=== PATIENT | male | born 1960 | race African-American/Black ===

== ENCOUNTER 2020-06-27 13:24 | Inpatient (IN) | payer MEDICARE, MEDICAID ==
[2020-06-27 14:04] LABS: #Lymphocytes 0.8 thou/uL (1.20-3.40); #Monocytes 0.4 thou/uL (0.11-0.59); #Neutrophils 10.8 thou/uL (1.40-6.50); %Basophils 0.2 % (0.0-1.0); %Eosinophils 0.1 % (0.0-10.0); %Lymphocytes 6.6 % (21.0-51.0); %Monocytes 3.4 % (0.0-10.0); %Neutrophils 89.8 % (42.0-75.0); Mean Corpuscular Hemoglobin 28.6 pg (27.0-31.0); Mean Corpuscular Volume 86.7 fL (78.0-98.0); Mean Platelet Volume 7.4 fL (7.4-10.4); Platelet Count 393 thou/uL (130-400); RBC Distribution Width 12.6 % (11.5-14.5); Red Blood Cell (RBC) Count 5.95 mill/uL (4.70-6.10); White Blood Cell (WBC) Count 12.1 thou/uL (4.8-10.8)
--- NOTE | 2020-06-27 14:22 | RAD ---
PORTABLE CHEST ONE VIEW: 06/27/20 at 2:07 p.m. HISTORY: Shortness of breath. COMPARISON: 03/21/17. FINDINGS/IMPRESSION: The heat size is normal. There is haziness in the lung lopez bilaterally. No lobar consolidation, pn eumothoraces or pleural effusions are seen. Possibility of a viral pneumonia cannot be excluded. POS: OFF
[2020-06-27 14:34] LABS: ALT (SGPT) 558 U/L (8-55); AST (SGOT) 879 U/L (5-34); Albumin 3.3 g/dL (3.5-5.0); Alkaline Phosphatase 166 U/L (40-110); Anion Gap 29 mmol/L (10-20); BUN (Urea Nitrogen) 112 mg/dL (8.4-25.7); Bilirubin, Total 1.2 mg/dL (0.2-1.2); Calc. Creatinine Clearance 0 mL/min (70-130); Calcium 8.2 mg/dL (7.8-10.44); Carbon Dioxide 18 mmol/L (22-29); Chloride 88 mmol/L (98-107); Globulin 4.1 g/dL (2.4-3.5); Glucose 104 mg/dL (70-105); Potassium 5.5 mmol/L (3.5-5.1); Protein, Total 7.4 g/dL (6.0-8.3); Sodium 129 mmol/L (136-145)
[2020-06-27] MEDS ORDERED: Calcium Chloride 1 GM/10 ML Abboject SYRINGE ONE (15:07)
[2020-06-27] MEDS ORDERED: Sodium Bicarbonate 150 MEQ in Dextrose 5% in Water 1,000 ML IV SCH (15:15)
--- NOTE | 2020-06-27 16:31 | PDOC.HHP ---
Hospitalist HPI Generalized weakness History of Present Illness: Mr. Kemp is a 59-year-old male with past medical history of type 2 diabetes mellitus, hypertension, autism who presents to the emergency room for weakness. Patient was brought in by his brother who noted that over the past few days his brother has been tired and lethargic which is very abnormal for him. EMS reported shortness of breath, however patient denies this. Patient denies fever, chills. Denies shortness of breath, chest pain, abdominal pain. Reports that he was feeling weak and tired the past few days, but feels better now. Also reports that his legs felt weak and that he was unable to get up out of bed. In emergency room initial vital signs 90/66, 83, 23, 92% on room air. EKG showed normal sinus rhythm with no ischemic changes. Initial troponin 0 0.026, BNP less than 10. Lactic acid 3.6, WBC 12.1. H/H 17.0/41.6, platelets 393. BUNs/CR 11.2/9.47, sodium 129, potassium 5.5, bicarb 18. Anion gap 29. Patient has no history of known kidney disease. He reports he has been urinating normally, although brother at bedside questions patient's reliability on review of systems. Allergies/Adverse Reactions: Allergy/AdvReac Type Severity Reaction Status Date / Time No Known Allergies Allergy Unverified 06/27/20 15:09 Home Medications: Medication Instructions Recorded Confirmed Type Amlodipine [Norvasc] 10 mg PO DAILY 06/29/20 06/29/20 History Colchicine [Colcrys] 0.6 mg PO DAILY 06/29/20 06/29/20 History Metoprolol Jasso/Hydrochlorothiaz 50 mg PO DAILY 06/29/20 06/29/20 History [Dutoprol 50-12.5 mg Tablet] Rosuvastatin Calcium 40 mg PO DAILY 06/29/20 06/29/20 History metFORMIN [Glucophage] 1,000 mg PO DAILY 06/29/20 06/29/20 History Past History: PMHx: Type 2 diabetes mellitus, hypertension, autism PSHx: No surgical history FHx: No pertinent family history Social: Patient autistic, active in community, lives with and home health aides. No smoking or drug use. Patient does endorse occasional alcohol use. Hospitalist HPI ROS ROS unobtainable: due to mental status Constitutional: reports: weakness, malaise. denies: fever, chills, sweats Eyes: denies: vision change ENT: denies: nose congestion, mouth pain, throat pain Respiratory: denies: cough, dry, shortness of breath, hemoptysis, SOB with excertion, pleuritic pain, sputum, wheezing, other Cardiovascular: denies: chest pain, palpitations, orthopnea, paroxysmal noc. dyspnea, edema, light headedness, other Gastrointestinal: denies: nausea, vomiting, abdominal pain, diarrhea, constipation, melena, hematochezia, other Genitourinary: denies: dysuria, frequency, incontinence, hematuria, retention, other Musculoskeletal: denies: neck pain, shoulder pain, arm pain, back pain, hand pain, leg pain, foot pain, other Skin: denies: rash, lesions, elham, bruising, other Neurological: denies: weakness, numbness, incoordination, change in speech, confusion, seizures, other Hospitalist Exam General Appearance: NAD, awake alert Eye: PERRL, anicteric sclera ENT: normocephalic atraumatic, no oropharyngeal lesions, dry oral mucosa Neck: supple, symmetric, no JVD, no thyromegaly, no lymphadenopathy, no carotid bruit Heart: RRR, no murmur, no gallops, no rubs, normal peripheral pulses Respiratory: CTAB, no wheezes, no rales, no ronchi, normal chest expansion, no tachypnea, normal percussion Gastrointestinal: soft, non-tender, non-distended, normal bowel sounds, no palp able masses, no hepatomegaly, no splenomegaly, no bruit Extremities: no cyanosis, no clubbing, no edema Skin: normal turgor, no lesions, no rashes Neurological: cranial nerve grossly intact, normal sensation to touch, no weak ness, no focal deficits, no new deficit Musculoskeletal: normal tone, normal strength, no muscle wasting Psychiatric: normal affect, normal behavior, A&O x 3 Hospitalist Results Result Diagrams: 07/04/20 05:13 07/06/20 05:45 Lab results: Laboratory Last Values WBC 12.1 thou/uL (4.8-10.8) H 06/27/20 13:56 RBC 5.95 mill/uL (4.70-6.10) 06/27/20 13:56 Hgb 17.0 g/dL (14.0-18.0) 06/27/20 13:56 Hct 51.6 % (42.0-52.0) 06/27/20 13:56 MCV 86.7 fL (78.0-98.0) 06/27/20 13:56 MCH 28.6 pg (27.0-31.0) 06/27/20 13:56 MCHC 33.0 g/dL (32.0-36.0) 06/27/20 13:56 RDW 12.6 % (11.5-14.5) 06/27/20 13:56 Plt Count 393 thou/uL (130-400) 06/27/20 13:56 MPV 7.4 fL (7.4-10.4) 06/27/20 13:56 Neutrophils % 89.8 % (42.0-75.0) H 06/27/20 13:56 Lymphocytes % 6.6 % (21.0-51.0) L 06/27/20 13:56 Monocytes % 3.4 % (0.0-10.0) 06/27/20 13:56 Eosinophils % 0.1 % (0.0-10.0) 06/27/20 13:56 Basophils % 0.2 % (0.0-1.0) 06/27/20 13:56 Neutrophils # 10.8 thou/uL (1.40-6.50) H 06/27/20 13:56 Lymphocytes # 0.8 thou/uL (1.20-3.40) L 06/27/20 13:56 Monocytes # 0.4 thou/uL (0.11-0.59) 06/27/20 13:56 Eosinophils # 0.0 thou/uL (0.0-0.7) 06/27/20 13:56 Basophils # 0.0 thou/uL (0.0-0.2) 06/27/20 13:56 Sodium 129 mmol/L (136-145) L 06/27/20 13:56 Potassium 5.5 mmol/L (3.5-5.1) H 06/27/20 13:56 Chloride 88 mmol/L (98-107) L 06/27/20 13:56 Carbon Dioxide 18 mmol/L (22-29) L 06/27/20 13:56 Anion Gap 29 mmol/L (10-20) H 06/27/20 13:56 BUN 112 mg/dL (8.4-25.7) H 06/27/20 13:56 Creatinine 9.47 mg/dL (0.7-1.3) H 06/27/20 13:56 Estimated GFR (MDRD) 7 06/27/20 13:56 Glucose 104 mg/dL (70-105) 06/27/20 13:56 Lactic Acid 3.6 mmol/L (0.5-2.2) H 06/27/20 14:27 Calcium 8.2 mg/dL (7.8-10.44) 06/27/20 13:56 Total Bilirubin 1.2 mg/dL (0.2-1.2) 06/27/20 13:56 AST 879 U/L (5-34) H 06/27/20 13:56 ALT 558 U/L (8-55) H 06/27/20 13:56 Alkaline Phosphatase 166 U/L (40-110) H 06/27/20 13:56 Creatine Kinase 284 U/L (30-200) H 06/27/20 13:56 Troponin I 0.026 ng/mL (< 0.028) 06/27/20 13:56 B-Natriuretic Peptide Less than 10.0 pg/mL (0-100) 06/27/20 13:56 Serum Total Protein 7.4 g/dL (6.0-8.3) 06/27/20 13:56 Albumin 3.3 g/dL (3.5-5.0) L 06/27/20 13:56 Globulin 4.1 g/dL (2.4-3.5) H 06/27/20 13:56 Albumin/Globulin Ratio 0.8 g/dL (1.2-2.2) L 06/27/20 13:56 Hospitalist H&P A/P Plan: Generalized weakness 59-year-old male with history of type 2 diabetes mellitus, hypertension, autism presents with generalized weakness brought in by brother. Found to have acute renal failure, and also meeting SIRS criteria. Chest x-ray showed haziness in the bilateral lung lpoez. No known COVID-19 contacts. Patient denies cough, fever, shortness of breath. Covid pending. Patient appears very dry on exam, question of patient has been getting adequate fluids over the past few days. Suspect weakness is secondary to severe dehydration. Plan Covid pending IV fluids Treatment as above Sepsis without septic shock Patient meeting SIRS criteria with elevated white blood cell count of 12.1, lactic acid 3.6, tachypnea and hypotension. Chest x-ray with question of faint haziness in bilateral lung lopez. Covid pending. Patient started on Rocephin and azithromycin in emergency room. We will continue broad-spectrum antibiotics and de-escalate as needed. Plan Vanc, cefepime Follow blood cultures, urine cultures trend lactic acid, WBC, fever curve IV fluids Acute renal failure Patient presents in acute renal failure with BUN/CR 112/9.47. Sodium 139, potassium 5.5. Anion gap 29. Unable to obtain urine sample in emergency room. Patient has no history of chronic kidney disease and prior creatinine from 06.23. Will obtain UA with microscopic and culture. Will obtain renal ultrasound to rule out obstructive pathology. Nephrology consulted, recommendations appreciated. Plan IV fluids UA with microscopic and culture Renal ultrasound Nephrology consulted recommendations appreciated Anion gap metabolic acidosis Pat in metabolic acidosis with elevated anion gap of 29. May be due to elevated lactic acid, however cannot rule out toxic ingestion. Given patient's Autism and alcohol dependence, question methanol, ethyelene glycol poisoning vs toxic alcohol intoxication especially in light of patient's new onset acute renal failure and significantly elevated liver enzymes. Plan -IVF -Ethylene glycol level STAT -Closely monitor anion gap Hyperkalemia Hyperkalemia to 5.5. Patient received calcium and bicarbonate drip in emergency room. Will repeat to ensure sample was not hemolyzed, and treat as needed. Plan Stat BMP -Calcium gluconate -Monitor and treat if indicated Telemetry monitoring Hyponatremia Patient with Na of 129 on admission. Likely hypovolemic hyponatremia since patient appears dry on exam. Will obtain serum osm, urine osm, and urine electrolytes. Nephrology consulted for acute renal failure, recommendations appreciated. Plan -IVF -q6h Na checks -Uosm, Na, K -Serum osm Transaminitis Patient with transaminitis AST/ALT 879/558, alk phos 166. T bili 1.2. No abdominal pain on exam. Will obtain right upper quadrant ultrasound, check urine drug screen, hepatitis panel. Patient does endorse history of alcohol use, but not daily. Plan Right upper quadrant ultrasound Urine drug screen Hepatitis panel, coags Trend LFTs Alcohol use We will place patient on ASE protocol. Denies daily alcohol use, but due to patient's mental status unable to ascertain amount. Will check thiamine, vitamin B12, magnesium and folate. DVT prophylaxis-SCDs FULL CODE Case discussed with attending physician, Dr. Rios.
[2020-06-27] MEDS ORDERED: Sodium Bicarbonate 50 MEQ in Sodium Chloride 0.45% 1,000 ML IV SCH (16:45)
[2020-06-27] MEDS ORDERED: cefTRIAXone\\ROCEPHIN 1 GM VIAL ONE (17:19)
[2020-06-27 17:40] LABS: INR-International Normal Ratio 1.1; Prothrombin Time 14.6 sec (12.0-14.7)
[2020-06-27 17:41] LABS: Lactic Acid 3.4 mmol/L (0.5-2.2)
[2020-06-27] MEDS ORDERED: Azithromycin 500 MG VIAL ONE (17:47)
[2020-06-27 18:11] LABS: Thyroid Stimulating Hormone 2.2131 uIU/mL (0.35-4.94)
[2020-06-27 18:12] LABS: HBSAg Index 0.14 S/CO (0-0.99); Hep B Surf Ag Non-Reactive S/CO (NonReactive); Hep C IgG Ab Non-Reactive (NonReactive)
[2020-06-27 18:14] LABS: Hep A IgM AB Non-Reactive (NonReactive); Hep A IgM S/CO 0.37 S/CO (0-0.79)
[2020-06-27 18:15] LABS: HBCM Index 0.06 S/CO (0-0.79); Hepatitis B Core IgM Abs Non-Reactive (NonReactive)
--- NOTE | 2020-06-27 18:17 | ULT ---
RIGHT UPPER QUADRANT ULTRASOUND: 06/27/20 INDICATIONS: Abdominal pain. Elevated liver function test. The gallbladder is contracted and not evaluated. Patient is nonfasting and ate prior to the exam. Thi s is therefore a nondiagnostic study. Liver appears unremarkable. the common bile duct is normal caliber. The right kidney is unremarkable. the pancreas is mostly obscured. IMPRESSION: Nondiagnostic gallbladder exam. If there is concern of gallbladder disease, recommend elective gallbl adder ultrasound with overnight fast. POS: AGW
--- NOTE | 2020-06-27 18:21 | ULT ---
RENAL ULTRASOUND: 06/27/20 INDICATIONS: Acute kidney insufficiency. Right kidney measures 10 cm in length. The left kidney measures 11 cm in length. Both kidneys appear unremarkable. Cortical thickness and cortical echogenicity appears normal bilater ally. The bladder appears to be contracted and is not evaluated. IMPRESSION: Unremarkable renal ultrasound. POS: AGW
[2020-06-27 18:39] LABS: Acetaminophen Less than 6.0 mcg/mL (10.0-30.0); Alcohol Less than 10 mg/dL (Less than 10); Salicylate Less than 8.0 mg/dL (15.0-30.0)
[2020-06-27] MEDS ORDERED: Dextrose 50% Abboject 50 ML SYRINGE SLOW IVP PRN (18:39)
[2020-06-27] MEDS ORDERED: Dextrose 5% in Water 1,000 ML IV PRN (18:39)
[2020-06-27 18:47] LABS: HIV (1/2) Antibody/Antigen Non-Reactive (NonReactive)
[2020-06-27 19:30] LABS: Bacteria/HPF 3+ HPF (None Seen); Bilirubin Negative (Negative); Blood, Urine 1+ (Negative); Clarity Extra Turbid (Clear); Glucose, Urine (Dipstick) 30 mg/dL (Negative); Ketone, Urine Negative (Negative); Leukocyte 75 Leu/uL (Negative); Nitrite Negative (Negative); Protein, Urine (Dipstick) 100 mg/dL (Neg-Trace); RBC/HPF 0-3 HPF (0-3); Specific Gravity, Urine 1.023 (1.002-1.036); Squamous Epithelial 0-3 HPF (0-3); Transitional Epithelial 0-3 HPF (None Seen); WBC/HPF 21-50 HPF (0-3)
[2020-06-27 19:35] LABS: Amphetamine Not Detected (NotDetected); Barbiturates Screen Not Detected (NotDetected); Benzodiazepine Screen Not Detected (NotDetected); Cocaine Metabolite Screen Not Detected (NotDetected); Medtox Control Line Valid? VALID (VALID); Medtox Reader # READER 1; Methadone Not Detected (NotDetected); Methamphetamine Not Detected (NotDetected); Opiate Screen Not Detected (NotDetected); Oxycodone Screen Not Detected (NotDetected); Phencyclidine (PCP) Not Detected (NotDetected); THC/Cannabinoid Screen Not Detected (NotDetected); Tricyclic Screen Not Detected (NotDetected)
--- NOTE | 2020-06-27 20:17 | CON ---
DATE OF CONSULTATION: 06/27/2020 SERVICE: Nephrology. REASON FOR CONSULTATION: Acute renal failure. REQUESTING PROVIDER: Valentín Aranda MD HISTORY OF PRESENT ILLNESS: History is limited as the patient had some speech disability. Most of the history is from review of medical record and talking with the brother. The patient with hypertension and borderline diabetes, was brought in by brother earlier today due to generalized weakness. Brother reported that for several days now, the patient has not been as active as he normally is and has been lying down mostly in the bed with markedly decreased oral intake, preferring only to take soups. There was no associated fever or shortness of breath or vomiting or diarrhea. The patient also denied chest pain or abdominal pain. There is also no history of sick contact. On presentation to the hospital, the patient was noticed to be hypotensive and tachypneic, hence was started on oxygen supplementation and treated with normal saline bolus with improvement, and oxygen supplementation was subsequently discontinued. Further evaluation revealed creatinine of 9.4, which is markedly elevated compared to 1.24 on May 28, 2020. The patient takes some medication for blood pressure, but he was unable to tell me whether he is on lisinopril or RAAS trev. He also denied use of NSAIDs. There is no history of kidney stones. The patient also received 1 L of sodium bicarbonate in the ER. However, during my evaluation, blood pressure was . PAST MEDICAL HISTORY: 1. Hypertension. 2. Borderline diabetes. 3. Autism. PAST SURGICAL HISTORY: None. FAMILY HISTORY: Significant for hypertension and diabetes in mother, who is late now. SOCIAL HISTORY: The patient is autistic, but he is very active in the community. Lives with family and had home health services. There is no history of smoking or drug use. Brother, however, reported daily alcohol use about 6 to 12 cans daily with last drink about 4 days ago. ALLERGIES: NO KNOWN DRUG ALLERGIES REPORTED. HOME MEDICATIONS: Unknown at this point. REVIEW OF SYSTEMS: A 12-point review of system performed was negative other than pertinent positives and negatives included in the history of present illness. PHYSICAL EXAMINATION: VITAL SIGNS: Initial vitals on presentation are as follows; pulse 83, respiratory rate 28, temperature 98, and blood pressure 82/49. SpO2 of 94 on 4 L nasal cannula. Vitals during my visit are as follows; blood pressure 88/70, pulse 83, and respiratory rate 20. GENERAL: Middle-age male, in no obvious distress. Fatigued and severely dry clinically. Afebrile and anicteric. HEENT: Normocephalic, atraumatic. Oral mucosa is very dry with cracked lips. NECK: Supple with no JVD. CARDIOVASCULAR: Regular rhythm and rate with normal heart sounds. RESPIRATORY: Fair air entry bilaterally with some transmitted breath sounds. There is no obvious rhonchi or use of accessory muscles. GI: Full, soft, nontender, nondistended with normal bowel sounds. EXTREMITIES: Grossly normal looking, but dry. No erythema or edema appreciated. SKIN: Very dry. No rash was appreciated. 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 Oriented to person and place at least. The patient was unable to tell me why he is in the hospital. DIAGNOSTIC DATA: CBC showed WBC count of 12.1, hemoglobin of 17.0, MCV of 86.7, platelet of 393. Coagulation panel is unremarkable with PT of 14.6, INR of 1.1, PTT of 28. Chemistry showed sodium 129, potassium 5.5, chloride 88, CO2 of 18, BUN 112, creatinine 9.47, glucose 104, calcium 8.2, total bilirubin 1.2, AST 879, ALT 558, alkaline phosphatase 168, total protein 7.4, albumin 3.3. Initial cardiac markers showed CK 284, troponin 0.026, and BNP less than 10. LDH is 1900. Lactic acid is 3.6. Prolactin is 24.01. Urinalysis has not been performed. Chest x-ray showed a normal heart size with some haziness in the lung lopez bilaterally. No lobar consolidation, pneumothorax, or pleural effusion was noted. ASSESSMENT: 1. Acute renal failure: Due to hemodynamic factors related to severe dehydration. Some contribution from infective process cannot be ruled out. 2. Severe dehydration/hypovolemic shock. 3. Shock: Due to hypovolemia with possible contribution from sepsis. 4. Acute renal failure. 5. Abnormal transaminases. 6. Metabolic acidosis. PLAN: 1. We will give 2 L of normal saline bolus followed by half-normal saline plus sodium bicarbonate to run at 125 mL/h. 2. We will also get urine electrolytes as well as urinalysis. 3. We will also get renal ultrasound to rule out obstructive uropathy. 4. I avoid nephrotoxic agents. 5. We will also get urine drug screen. We will also recommend further evaluation with COVID PCR to rule out COVID infection. We will also get ammonia level and lipase. The patient reported a history of chronic alcohol use. Further treatment to follow depending on hospital course. Job ID: [id number]
[2020-06-27] MEDS: Sodium Chloride 0.9% 1,000 ML IV SCH (21:14)
[2020-06-27] MEDS ORDERED: Sodium Chloride 0.9% 1,000 ML IV SCH (22:00)
[2020-06-27 22:23] LABS: Anion Gap 23 mmol/L (10-20); BUN (Urea Nitrogen) 101 mg/dL (8.4-25.7); Calc. Creatinine Clearance 12 mL/min (70-130); Calcium 8.2 mg/dL (7.8-10.44); Carbon Dioxide 17 mmol/L (22-29); Chloride 95 mmol/L (98-107); Glucose 87 mg/dL (70-105); Magnesium 2.3 mg/dL (1.6-2.6); Potassium 4.6 mmol/L (3.5-5.1); Sodium 130 mmol/L (136-145)
[2020-06-27 22:48] LABS: SARS-CoV-2 NAA Rapid Test DETECTED (NotDetected)
[2020-06-27 22:51] LABS: Lactic Acid 2.1 mmol/L (0.5-2.2)
[2020-06-27] MEDS ORDERED: Cefepime 1 GM in Sodium Chloride 0.9% 100 ML IVPB SCH (23:00)
[2020-06-27] MEDS ORDERED: Albuterol 200 PUFF (6.7GM INHALER) INH PRN (23:06)
[2020-06-27 23:20] LABS: Legionella Urinary Ag Negative (Negative)
[2020-06-27 23:30] LABS: Creatinine, Urine 201.49 mg/dL (63-166); Sodium, Urine Less than 20 mmol/L (Not Available); Urea Nitrogen, Random Urine 260 mg/dl
[2020-06-27 23:43] LABS: Protein, Urine Random Quant 245 mg/dL (1-14)
[2020-06-27] MEDS ORDERED: VANCOMYCIN 2 GRAM/400 ML BAG 2 GM in Premix Bag 1 BAG IVPB SCH (23:59)
[2020-06-28 04:59] LABS: #Lymphocytes 0.6 thou/uL (1.20-3.40); #Monocytes 0.4 thou/uL (0.11-0.59); #Neutrophils 10.8 thou/uL (1.40-6.50); %Basophils 0.1 % (0.0-1.0); %Eosinophils 0.2 % (0.0-10.0); %Lymphocytes 5.4 % (21.0-51.0); %Monocytes 3.6 % (0.0-10.0); %Neutrophils 90.7 % (42.0-75.0); Hemoglobin 15.8 g/dL (14.0-18.0); Mean Corpuscular HGB CONC 33.4 g/dL (32.0-36.0); Mean Corpuscular Hemoglobin 29.1 pg (27.0-31.0); Mean Corpuscular Volume 87.2 fL (78.0-98.0); Mean Platelet Volume 7.1 fL (7.4-10.4); Platelet Count 326 thou/uL (130-400); RBC Distribution Width 12.6 % (11.5-14.5); Red Blood Cell (RBC) Count 5.43 mill/uL (4.70-6.10); White Blood Cell (WBC) Count 11.9 thou/uL (4.8-10.8)
[2020-06-28 05:40] LABS: Anion Gap 26 mmol/L (10-20); BUN (Urea Nitrogen) 121 mg/dL (8.4-25.7); Calc. Creatinine Clearance 12 mL/min (70-130); Calcium 7.9 mg/dL (7.8-10.44); Carbon Dioxide 14 mmol/L (22-29); Chloride 96 mmol/L (98-107); Glucose 82 mg/dL (70-105); Potassium 4.5 mmol/L (3.5-5.1); Sodium 131 mmol/L (136-145)
[2020-06-28 05:42] LABS: ALT (SGPT) 390 U/L (8-55); AST (SGOT) 547 U/L (5-34); Albumin 2.6 g/dL (3.5-5.0); Alkaline Phosphatase 139 U/L (40-110); Bilirubin, Direct 0.7 mg/dL (0.1-0.3); Bilirubin, Total 0.8 mg/dL (0.2-1.2); CRP (Inflammatory) 16.83 mg/dL (= or < 0.5); Magnesium 2.3 mg/dL (1.6-2.6); Protein, Total 6.1 g/dL (6.0-8.3)
[2020-06-28 05:47] LABS: Lactic Acid 2.4 mmol/L (0.5-2.2)
--- NOTE | 2020-06-28 07:39 | CT ---
CT ABDOMEN AND PELVIS WITHOUT IV CONTRAST: INDICATION: Abdominal pain. Elevated liver function tests. FINDINGS: Images through the lung bases reveal numerous patchy areas of ground-glass opacity in both visualized lung bases. The findings suggest COVID pneumonia. The liver, spleen, and pancreas appear unremarkable given the limitations of an unenhanced study. St omach unremarkable. Adrenal glands and kidneys unremarkable. Motion artifact degrades the exam. Small and large bowel loops unremarkable. Appendix appears normal. Colon unremarkable. Aorta stacy l caliber. No adenopathy, mass, or free fluid. Images through pelvis unremarkable. Osseous structures unremarkable with degenerative changes in the spine. IMPRESSION: 1. Images through the lung bases show bilateral patchy ground-glass infiltrates consistent with COVI D pneumonia. 2. No acute intraabdominal process identified. POS: AGW
[2020-06-28] MEDS: Magnesium Oxide 400 MG TAB PO SCH (09:08)
[2020-06-28] MEDS: Thiamine 100 MG TAB PO SCH (09:08)
[2020-06-28] MEDS: Multivitamin W/ Minerals 1 TAB PO SCH (09:08)
[2020-06-28] MEDS: Ascorbic Acid 500 mg Chewable Tablet PO SCH (09:08)
[2020-06-28] MEDS: Zinc Sulfate 220 MG CAP PO SCH (09:08)
[2020-06-28] MEDS: Folic Acid 1 MG TAB PO SCH (09:08)
[2020-06-28 09:54] LABS: Sodium 131 mmol/L (136-145)
[2020-06-28] MEDS: Sodium Bicarbonate 75 MEQ in Sodium Chloride 0.45% 1,000 ML IV SCH (10:23)
[2020-06-28] MEDS ORDERED: Sodium Chloride 0.9% 500 ML IV SCH (10:30)
--- NOTE | 2020-06-28 10:32 | PDOC.HOSPP ---
- Subjective Encounter Date: 06/28/20 Subjective: Patient says he feels "great". Brother is in the room with him. He confirms the patient was not eating or drinking much prior to admission. Nurse reports his sats drop to the 80's with minimal exertion (sitting up on the side of the bed). She also reports no significant UOP. Bladder scan with no residual. - Objective Vital Signs & Weight: Vital Signs (12 hours) Temp Pulse Resp BP Pulse Ox 06/28/20 08:10 99.2 F 104 H 20 145/73 H 95 06/28/20 03:15 98.5 F 85 35 H 131/65 90 L 06/28/20 00:00 98.7 F 91 22 H 124/65 93 L Weight Weight 216 lb Result Diagrams: 06/28/20 04:29 06/28/20 09:18 Additional Labs: Accuchecks 06/28/20 06/28/20 06/27/20 10:22 05:39 20:21 POC Glucose 91 85 102 H Hospitalist ROS - Medication Medications: Active Medications Generic Name Dose Route Start Last Admin Trade Name Lewisq PRN Reason Stop Dose Admin Ascorbic Acid 1,000 mg 06/28/20 09:00 06/28/20 09:08 Ascorbic Acid 500 Mg Chewable Tablet PO 1,000 mg DAILY WILLIAMS Administration Folic Acid 1 mg 06/28/20 09:00 06/28/20 09:08 Folic Acid 1 Mg Tab PO 1 mg DAILY WILLIAMS Administration Sodium Bicarbonate 75 meq/ 1,075 mls @ 100 mls/hr 06/28/20 08:09 06/28/20 10:23 Sodium Chloride IV 1,075 mls INF WILLIAMS Administration Iron/Minerals/Multivitamins 1 tab 06/28/20 09:00 06/28/20 09:08 Multivitamin W/ Minerals 1 Tab PO 1 tab DAILY WILLIAMS Administration Magnesium Oxide 400 mg 06/28/20 09:00 06/28/20 09:08 Magnesium Oxide 400 Mg Tab PO 400 mg DAILY WILLIAMS Administration Thiamine HCl 100 mg 06/28/20 09:00 06/28/20 09:08 Thiamine 100 Mg Tab PO 100 mg DAILY WILLIAMS Administration Zinc Sulfate 220 mg 06/28/20 09:00 06/28/20 09:08 Zinc Sulfate 220 Mg Cap PO 220 mg DAILY WILLIAMS Administration Hospitalist Exam Vitals: Vital Signs (12 hours) Temp Pulse Resp BP Pulse Ox 06/28/20 08:10 99.2 F 104 H 20 145/73 H 95 06/28/20 03:15 98.5 F 85 35 H 131/65 90 L 06/28/20 00:00 98.7 F 91 22 H 124/65 93 L Weight Weight 216 lb General Appearance: NAD, awake alert General - other findings: Slightly lethargic appearing. Heart: RRR, no murmur, no gallops, no rubs, normal peripheral pulses Respiratory: no wheezes, no ronchi, rales (bibasilar) Gastrointestinal: soft, non-tender, non-distended, normal bowel sounds, no palpable masses, no hepatomegaly, no splenomegaly, no bruit Extremities: no cyanosis, no clubbing, no edema Musculoskeletal: generalized weakness Psychiatric: normal affect, normal behavior, lethargic Hosp A/P (1) Acute respiratory failure with hypoxia Code(s): J96.01 - ACUTE RESPIRATORY FAILURE WITH HYPOXIA Status: Acute (2) Pneumonia due to COVID-19 virus Code(s): U07.1 - COVID-19; J12.82 - PNEUMONIA DUE TO CORONAVIRUS DISEASE 2019 Status: Acute (3) Dehydration Code(s): E86.0 - DEHYDRATION Status: Acute (4) KASSIE (acute kidney injury) Code(s): N17.9 - ACUTE KIDNEY FAILURE, UNSPECIFIED Status: Acute (5) Transaminitis Code(s): R74.01 - ELEVATION OF LEVELS OF LIVER TRANSAMINASE LEVELS Status: Acute (6) Autism Code(s): F84.0 - AUTISTIC DISORDER Status: Acute (7) Metabolic acidosis Code(s): E87.2 - ACIDOSIS Status: Acute - Plan Acute hypoxia: Secondary to Covid. Not currently requiring oxygen at rest. On the verge of needing it as sats do drop with minimal exertion. Covid 19 Pneumonia: Not requiring oxygen now. No steroids yet. Not a candidate for remdesivir due to renal failure. Suspect this will get worse as he is rehydrated. Sepsis without septic shock Patient meeting SIRS criteria with elevated white blood cell count of 12.1, lactic acid 3.6, tachypnea and hypotension. Chest x-ray with question of faint haziness in bilateral lung lopez. Covid pending. Patient started on Rocephin and azithromycin in emergency room. We will continue broad-spectrum antibiotics and de-escalate as needed. Plan - Cont Vanc and cefepime in light of the substantially elevated procalcitonin. Follow blood cultures, urine cultures IV fluids Acute on chronic renal failure: Secondary to shock. Combination of hypovolemia and sepsis. Patient presents in acute renal failure with BUN/CR 112/9.47. Sodium 139, potassium 5.5. Anion gap 29. Patient has no history of chronic kidney disease and prior creatinine from 06.23. Will obtain UA with microscopic and culture. Will obtain renal ultrasound to rule out obstructive pathology. Nephrology consulted, recommendations appreciated. Plan IV fluids UA with microscopic and culture Renal ultrasound nml. No obstruction. -CT abdomen nml. Nephrology consulted recommendations appreciated -NS bolus 500 cc x 1 given the oliguria. Anion gap metabolic acidosis: Pat in metabolic acidosis with elevated anion gap of 29. Likely due to starvat ion ketosis. Plan -IVF -Ethylene glycol level STAT -Closely monitor anion gap - Hydrat - Nutrition. Hyperkalemia Hyperkalemia to 5.5. Plan -Calcium gluconate Telemetry monitoring -Resolved 06/28. Hyponatremia: Patient with Na of 129 on admission. Likely hypovolemic hyponatremia since patient appears dry on exam. Will obtain serum osm, urine osm, and urine electrolytes. Nephrology consulted for acute renal failure, recommendations appreciated. Plan -IVF -q6h Na checks -Uosm, Na, K -Serum osm Transaminitis Patient with transaminitis AST/ALT 879/558, alk phos 166. T bili 1.2. No abdominal pain on exam. US and CT abdomen nml. Likely related to shock liver. Plan Trend LFTs Alcohol use: We will place patient on ASE protocol. Denies daily alcohol use, but due to patient's mental status unable to ascertain amount. Will check thiamine, vitamin B12, magnesium and folate. DVT prophylaxis-SCDs FULL CODE Dispo: Discussed the situation with the patient's brother who is at the bedside. At his request, also spoke with the patient's nephew, Marco Antonio at [phone]. Concerned the covid situation will get worse. So far, no significant improvement in renal function.
[2020-06-28] MEDS ORDERED: Acetaminophen 500 MG TAB PO PRN (12:10)
--- NOTE | 2020-06-28 12:57 | PDOC.NEPPN ---
- Subjective Encounter Date: 06/28/20 Subjective: Seen and examined. More awake and responsive. Denied nausea, vomiting or diarrhea. Remained afebrile. Appertite and oral intake remained poor. - Objective Vital Signs & Weight: Vital Signs (12 hours) Temp Pulse Resp BP Pulse Ox 06/28/20 10:25 100.2 F H 106 H 24 H 122/60 95 06/28/20 09:08 95 06/28/20 08:10 99.2 F 104 H 20 145/73 H 95 06/28/20 03:15 98.5 F 85 35 H 131/65 90 L Weight Weight 216 lb Result Diagrams: 06/28/20 04:29 06/28/20 09:18 Additional Labs: Accuchecks 06/28/20 06/28/20 06/27/20 10:22 05:39 20:21 POC Glucose 91 85 102 H Nephrology ROS - Medication Medications: Active Medications Generic Name Dose Route Start Last Admin Trade Name Freq PRN Reason Stop Dose Admin Ascorbic Acid 1,000 mg 06/28/20 09:00 06/28/20 09:08 Ascorbic Acid 500 Mg Chewable Tablet PO 1,000 mg DAILY WILLIAMS Administration Folic Acid 1 mg 06/28/20 09:00 06/28/20 09:08 Folic Acid 1 Mg Tab PO 1 mg DAILY WILLIAMS Administration Sodium Bicarbonate 75 meq/ 1,075 mls @ 100 mls/hr 06/28/20 08:09 06/28/20 10:23 Sodium Chloride IV 1,075 mls INF WILLIAMS Administration Iron/Minerals/Multivitamins 1 tab 06/28/20 09:00 06/28/20 09:08 Multivitamin W/ Minerals 1 Tab PO 1 tab DAILY WILLIAMS Administration Magnesium Oxide 400 mg 06/28/20 09:00 06/28/20 09:08 Magnesium Oxide 400 Mg Tab PO 400 mg DAILY WILLIAMS Administration Thiamine HCl 100 mg 06/28/20 09:00 06/28/20 09:08 Thiamine 100 Mg Tab PO 100 mg DAILY WILLIAMS Administration Zinc Sulfate 220 mg 06/28/20 09:00 06/28/20 09:08 Zinc Sulfate 220 Mg Cap PO 220 mg DAILY WILLIAMS Administration - Exam General Appearance: awake alert Eye: anicteric sclera ENT: dry oral mucosa Neck: symmetric, no JVD Respiratory - other findings: fair air entry bilaterally with few transmitted soind but obvious crackles Cardiovascular: RRR Gastrointestinal: soft, non-tender, non-distended, normal bowel sounds Extremities: no edema Skin - other findings: still dry. No rash Neurological: CN's grossly intact, no focal deficits Musculoskeletal: generalized weakness PSYCH: oriented to person, oriented to place Nephrology Results - Labs Result Diagrams: 06/28/20 04:29 06/28/20 09:18 Lab results: WBC 11.9 thou/uL (4.8-10.8) H 06/28/20 04:29 Hgb 15.8 g/dL (14.0-18.0) 06/28/20 04:29 Hct 47.3 % (42.0-52.0) 06/28/20 04:29 MCV 87.2 fL (78.0-98.0) 06/28/20 04:29 Plt Count 326 thou/uL (130-400) 06/28/20 04:29 Neutrophils % 90.7 % (42.0-75.0) H 06/28/20 04:29 Sodium 131 mmol/L (136-145) L 06/28/20 09:18 Potassium 4.5 mmol/L (3.5-5.1) 06/28/20 04:29 Chloride 96 mmol/L (98-107) L 06/28/20 04:29 Carbon Dioxide 14 mmol/L (22-29) L 06/28/20 04:29 BUN 121 mg/dL (8.4-25.7) H 06/28/20 04:29 Creatinine 9.52 mg/dL (0.7-1.3) H 06/28/20 04:29 Glucose 82 mg/dL (70-105) 06/28/20 04:29 Lactic Acid 2.4 mmol/L (0.5-2.2) H 06/28/20 04:29 Calcium 7.9 mg/dL (7.8-10.44) 06/28/20 04:29 Total Bilirubin 0.8 mg/dL (0.2-1.2) 06/28/20 04:29 AST 547 U/L (5-34) H 06/28/20 04:29 ALT 390 U/L (8-55) H 06/28/20 04:29 Alkaline Phosphatase 139 U/L (40-110) H 06/28/20 04:29 Ammonia 85 umol/L (18-72) H 06/27/20 17:15 Creatine Kinase 284 U/L (30-200) H 06/27/20 13:56 Troponin I 0.026 ng/mL (< 0.028) 06/27/20 13:56 C-Reactive Protein 16.83 mg/dL (= or < 0.5) H 06/28/20 04:29 B-Natriuretic Peptide Less than 10.0 pg/mL (0-100) 06/27/20 13:56 Serum Total Protein 6.1 g/dL (6.0-8.3) 06/28/20 04:29 Albumin 2.6 g/dL (3.5-5.0) L 06/28/20 04:29 Lipase 242 U/L (8-78) H 06/27/20 17:15 Urine Ketones Negative mg/dL (Negative) 06/27/20 18:15 Urine Ketones Trace mg/dL (Negative) A 06/27/20 18:15 Urine Blood 1+ (Negative) A 06/27/20 18:15 Urine Nitrite Negative (Negative) 06/27/20 18:15 Ur Leukocyte Esterase 75 Nadia/uL (Negative) A 06/27/20 18:15 Urine RBC 0-3 HPF (0-3) 06/27/20 18:15 Urine WBC 21-50 HPF (0-3) A 06/27/20 18:15 Ur Squamous Epith Cells 0-3 HPF (0-3) 06/27/20 18:15 Urine Bacteria 3+ HPF (None Seen) A 06/27/20 18:15 Sodium 131 mmol/L (136-145) L 06/28/20 09:18 Potassium 4.5 mmol/L (3.5-5.1) 06/28/20 04:29 Chloride 96 mmol/L (98-107) L 06/28/20 04:29 Carbon Dioxide 14 mmol/L (22-29) L 06/28/20 04:29 Anion Gap 26 mmol/L (10-20) H 06/28/20 04:29 BUN 121 mg/dL (8.4-25.7) H 06/28/20 04:29 Creatinine 9.52 mg/dL (0.7-1.3) H 06/28/20 04:29 Glucose 82 mg/dL (70-105) 06/28/20 04:29 Calcium 7.9 mg/dL (7.8-10.44) 06/28/20 04:29 Magnesium 2.3 mg/dL (1.6-2.6) 06/28/20 04:29 Albumin 2.6 g/dL (3.5-5.0) L 06/28/20 04:29 Nephrology AP PN - Plan KASSIE: Most likely due to hemodynamic factors related to severe dehydration and acute infection. No significant change since admission despite fluid therapy. Metabolic acidosis Hyperkalemia Severe dehydration Shock: due to hypovolemia and acute infection due to COVID. Abnormal LFT. Hyponatremia: Due to severe volume depletion with appropriate ADH secretion. Improved with volume expansion COVID infection. HX of HTN. PLAN Add NS 100 cc to 1/2 NS + 75 meq Sodium bicarb Get repeat CXR Monitor clossely to avoid fluid overload. Monitor intake/output. Follow renal function and electrolytes.
[2020-06-28] MEDS: Acetaminophen 325 MG TAB PO PRN (13:09)
[2020-06-28] MEDS: Cefepime 1 GM in Sodium Chloride 0.9% 100 ML IVPB SCH (13:10)
--- NOTE | 2020-06-28 14:05 | RAD ---
CHEST ONE VIEW PORTABLE: History: Tachypnea, Covid positive. Comparison: 06-27-2020 FINDINGS: Again noted is decreased inspiratory effort with patchy bilateral alveolar and ground glass opacity c hanges in the mid and lower lung zones somewhat more peripherally oriented without cardiomegaly or pl eural effusion, evidence for bilateral Covid pneumonia, possibly slightly worse. IMPRESSION: Persistent probably slight worse bilateral Covid pneumonia. Continued short term follow up. POS: [facility]
[2020-06-28] MEDS: Sodium Chloride 0.9% 1,000 ML IV SCH (14:44)
[2020-06-28 17:13] LABS: ANA Symphony (Qualitative) Negative (Negative); ANA Symphony (Quantitative) 0.2 Ratio (< 0.7 Negative); dsDNA IgG Antibody Less than 0.5 IU/mL (<10 Negative)
[2020-06-28 23:44] LABS: Vancomycin, Random 25.9 ug/mL (See Comment)
[2020-06-28] MEDS ORDERED: Vancomycin 1 GM in Premix Bag 1 BAG IVPB SCH (23:59)
[2020-06-29] MEDS: Sodium Chloride 0.9% 1,000 ML IV SCH (05:04)
[2020-06-29] MEDS: Acetaminophen 325 MG TAB PO PRN ×2 (05:15→16:29)
[2020-06-29 05:27] LABS: Phosphorus 6.8 mg/dL (2.3-4.7)
[2020-06-29 05:31] LABS: ALT (SGPT) 361 U/L (8-55); AST (SGOT) 478 U/L (5-34); Albumin 2.5 g/dL (3.5-5.0); Alkaline Phosphatase 165 U/L (40-110); Anion Gap 25 mmol/L (10-20); Calc. Creatinine Clearance 10 mL/min (70-130); Calcium 7.7 mg/dL (7.8-10.44); Carbon Dioxide 14 mmol/L (22-29); Chloride 94 mmol/L (98-107); Globulin 3.7 g/dL (2.4-3.5); Glucose 68 mg/dL (70-105); Magnesium 2.2 mg/dL (1.6-2.6); Potassium 4.5 mmol/L (3.5-5.1); Protein, Total 6.2 g/dL (6.0-8.3); Sodium 128 mmol/L (136-145)
[2020-06-29 05:43] LABS: BUN (Urea Nitrogen) 125 mg/dL (8.4-25.7)
[2020-06-29 06:21] LABS: Band 12 % (5-11); Hemoglobin 14.7 g/dL (14.0-18.0); Lymphocytes 6 % (21-51); MDiff Complete? YES; Mean Corpuscular HGB CONC 32.2 g/dL (32.0-36.0); Mean Corpuscular Hemoglobin 27.4 pg (27.0-31.0); Mean Platelet Volume 7.3 fL (7.4-10.4); Monocytes 4 % (0-10); Neutrophil 78 % (42-75); Platelet Count 374 thou/uL (130-400); RBC Distribution Width 12.9 % (11.5-14.5); Red Blood Cell (RBC) Count 5.39 mill/uL (4.70-6.10); White Blood Cell (WBC) Count 15.6 thou/uL (4.8-10.8)
[2020-06-29] MEDS: Sodium Bicarbonate Tab 325 MG TAB PO SCH ×3 (07:30→20:21)
[2020-06-29] MEDS: Ascorbic Acid 500 mg Chewable Tablet PO SCH (07:31)
[2020-06-29] MEDS: Folic Acid 1 MG TAB PO SCH (07:31)
[2020-06-29] MEDS: Thiamine 100 MG TAB PO SCH (07:31)
[2020-06-29] MEDS: Magnesium Oxide 400 MG TAB PO SCH (07:31)
[2020-06-29] MEDS: Zinc Sulfate 220 MG CAP PO SCH (07:31)
[2020-06-29] MEDS: Multivitamin W/ Minerals 1 TAB PO SCH (07:31)
--- NOTE | 2020-06-29 10:18 | PDOC.NEPPN ---
- Subjective Encounter Date: 06/29/20 Subjective: Seen and examined. Made some urine though small. - Objective Vital Signs & Weight: Vital Signs (12 hours) Temp Pulse Resp BP Pulse Ox 06/29/20 07:46 97.8 F 90 16 128/83 91 L 06/29/20 03:40 98.3 F 102 H 18 146/80 H 92 L Weight Admit Weight 216 lb Weight 216 lb I&O: 06/28/20 06/29/20 06/30/20 06:59 06:59 06:59 Intake Total 2960 Output Total 1003 Balance 1956 Result Diagrams: 06/29/20 04:38 06/29/20 04:38 Additional Labs: Accuchecks 06/29/20 06/28/20 06/28/20 05:06 18:15 10:22 POC Glucose 70 88 91 Nephrology ROS - Medication Medications: Active Medications Generic Name Dose Route Start Last Admin Trade Name Freq PRN Reason Stop Dose Admin Acetaminophen 650 mg 06/28/20 12:23 06/29/20 05:15 Acetaminophen 325 Mg Tab PO 650 mg Q4H PRN Administration Headache/Fever or Pain Ascorbic Acid 1,000 mg 06/28/20 09:00 06/29/20 07:31 Ascorbic Acid 500 Mg Chewable Tablet PO 1,000 mg DAILY WILLIAMS Administration Folic Acid 1 mg 06/28/20 09:00 06/29/20 07:31 Folic Acid 1 Mg Tab PO 1 mg DAILY WILLIAMS Administration Cefepime HCl 1 gm/ Sodium 100 mls @ 200 mls/hr 06/28/20 13:00 06/28/20 13:10 Chloride IVPB 100 mls 1300 WILLIAMS Administration Sodium Bicarbonate 75 meq/ 1,075 mls @ 100 mls/hr 06/28/20 08:09 06/28/20 10:23 Sodium Chloride IV 1,075 mls INF WILLIAMS Administration Iron/Minerals/Multivitamins 1 tab 06/28/20 09:00 06/29/20 07:31 Multivitamin W/ Minerals 1 Tab PO 1 tab DAILY WILLIAMS Administration Magnesium Oxide 400 mg 06/28/20 09:00 06/29/20 07:31 Magnesium Oxide 400 Mg Tab PO 400 mg DAILY WILLIAMS Administration Sodium Bicarbonate 1,300 mg 06/29/20 09:00 06/29/20 07:30 Sodium Bicarbonate Tab 325 Mg Tab PO 1,300 mg TID WILLIAMS Administration Thiamine HCl 100 mg 06/28/20 09:00 06/29/20 07:31 Thiamine 100 Mg Tab PO 100 mg DAILY WILLIAMS Administration Zinc Sulfate 220 mg 06/28/20 09:00 06/29/20 07:31 Zinc Sulfate 220 Mg Cap PO 220 mg DAILY WILLIAMS Administration - Exam General Appearance: awake alert Eye: anicteric sclera ENT: normocephalic atraumatic, moist mucosa Neck: symmetric, no JVD Respiratory: no wheezes, no ronchi, tachypneic Respiratory - other findings: Fair air entry with some transmitted sound. Cardiovascular: RRR Gastrointestinal: soft, non-tender, non-distended, normal bowel sounds Extremities: no edema Neurological: CN's grossly intact, no focal deficits PSYCH: A&O x 3 Nephrology Results - Labs Result Diagrams: 06/29/20 04:38 06/29/20 04:38 Lab results: WBC 15.6 thou/uL (4.8-10.8) H 06/29/20 04:38 Hgb 14.7 g/dL (14.0-18.0) 06/29/20 04:38 Hct 45.8 % (42.0-52.0) 06/29/20 04:38 MCV 85.0 fL (78.0-98.0) 06/29/20 04:38 Plt Count 374 thou/uL (130-400) 06/29/20 04:38 Neutrophils % 90.7 % (42.0-75.0) H 06/28/20 04:29 Band Neuts % (Manual) 12 % (5-11) H 06/29/20 04:38 Sodium 128 mmol/L (136-145) L 06/29/20 04:38 Potassium 4.5 mmol/L (3.5-5.1) 06/29/20 04:38 Chloride 94 mmol/L (98-107) L 06/29/20 04:38 Carbon Dioxide 14 mmol/L (22-29) L 06/29/20 04:38 BUN 125 mg/dL (8.4-25.7) H 06/29/20 04:38 Creatinine 10.64 mg/dL (0.7-1.3) H 06/29/20 04:38 Glucose 68 mg/dL (70-105) L 06/29/20 04:38 Lactic Acid 2.4 mmol/L (0.5-2.2) H 06/28/20 04:29 Calcium 7.7 mg/dL (7.8-10.44) L 06/29/20 04:38 Total Bilirubin 1.0 mg/dL (0.2-1.2) 06/29/20 04:38 AST 478 U/L (5-34) H 06/29/20 04:38 ALT 361 U/L (8-55) H 06/29/20 04:38 Alkaline Phosphatase 165 U/L (40-110) H 06/29/20 04:38 Ammonia 85 umol/L (18-72) H 06/27/20 17:15 Creatine Kinase 284 U/L (30-200) H 06/27/20 13:56 Troponin I 0.026 ng/mL (< 0.028) 06/27/20 13:56 C-Reactive Protein 16.83 mg/dL (= or < 0.5) H 06/28/20 04:29 B-Natriuretic Peptide Less than 10.0 pg/mL (0-100) 06/27/20 13:56 Serum Total Protein 6.2 g/dL (6.0-8.3) 06/29/20 04:38 Albumin 2.5 g/dL (3.5-5.0) L 06/29/20 04:38 Lipase 242 U/L (8-78) H 06/27/20 17:15 Urine Ketones Negative mg/dL (Negative) 06/27/20 18:15 Urine Ketones Trace mg/dL (Negative) A 06/27/20 18:15 Urine Blood 1+ (Negative) A 06/27/20 18:15 Urine Nitrite Negative (Negative) 06/27/20 18:15 Ur Leukocyte Esterase 75 Nadia/uL (Negative) A 06/27/20 18:15 Urine RBC 0-3 HPF (0-3) 06/27/20 18:15 Urine WBC 21-50 HPF (0-3) A 06/27/20 18:15 Ur Squamous Epith Cells 0-3 HPF (0-3) 06/27/20 18:15 Urine Bacteria 3+ HPF (None Seen) A 06/27/20 18:15 Sodium 128 mmol/L (136-145) L 06/29/20 04:38 Potassium 4.5 mmol/L (3.5-5.1) 06/29/20 04:38 Chloride 94 mmol/L (98-107) L 06/29/20 04:38 Carbon Dioxide 14 mmol/L (22-29) L 06/29/20 04:38 Anion Gap 25 mmol/L (10-20) H 06/29/20 04:38 BUN 125 mg/dL (8.4-25.7) H 06/29/20 04:38 Creatinine 10.64 mg/dL (0.7-1.3) H 06/29/20 04:38 Glucose 68 mg/dL (70-105) L 06/29/20 04:38 Calcium 7.7 mg/dL (7.8-10.44) L 06/29/20 04:38 Phosphorus 6.8 mg/dL (2.3-4.7) H 06/29/20 04:38 Magnesium 2.2 mg/dL (1.6-2.6) 06/29/20 04:38 Albumin 2.5 g/dL (3.5-5.0) L 06/29/20 04:38 Nephrology AP PN - Plan Acute renal failure: Oliguric. Was anuric before. Most likely due to hemodynamic factors related to severe dehydration and acute infection. No significant change yet since admission despite fluid therapy. Metabolic acidosis Hyperkalemia: Resolved Severe dehydration Shock: due to hypovolemia and acute infection due to COVID. Abnormal LFT. Hyponatremia: Due to severe volume depletion with appropriate ADH secretion. Improved with volume expansion COVID infection. HX of HTN. Tachypnea: Most likely respiratory compensation to metabolic acidosis +/- Covid. Hx Autism. PLAN Continue Sodium bicarb containing infusion Dc normal saline Also start oral alkali therapy [place] oral intake advised No need for emergent dialysis at this time as electrolytes and volume status as acceptable DC vancomycin to avoid nephrotoxicity. Monitor intake/output. Follow renal function and electrolytes.
--- NOTE | 2020-06-29 11:29 | PDOC.HOSPP ---
- Subjective Encounter Date: 06/29/20 Encounter Time: 11:27 Subjective: Mr. Kemp was seen today in follow-up of acute kidney injury. His brother is at the bedside, and says the patient has been sleeping most of the time, and has not been eating well. - Objective Vital Signs & Weight: Vital Signs (12 hours) Temp Pulse Resp BP Pulse Ox 06/29/20 07:46 97.8 F 90 16 128/83 91 L 06/29/20 03:40 98.3 F 102 H 18 146/80 H 92 L Weight Admit Weight 216 lb Weight 216 lb I&O: 06/28/20 06/29/20 06/30/20 06:59 06:59 06:59 Intake Total 2960 Output Total 1003 Balance 1956 Result Diagrams: 06/29/20 04:38 06/29/20 04:38 Additional Labs: Accuchecks 06/29/20 06/29/20 06/28/20 10:44 05:06 18:15 POC Glucose 90 70 88 Hospitalist ROS - Medication Medications: Active Medications Generic Name Dose Route Start Last Admin Trade Name Freq PRN Reason Stop Dose Admin Acetaminophen 650 mg 06/28/20 12:23 06/29/20 05:15 Acetaminophen 325 Mg Tab PO 650 mg Q4H PRN Administration Headache/Fever or Pain Ascorbic Acid 1,000 mg 06/28/20 09:00 06/29/20 07:31 Ascorbic Acid 500 Mg Chewable Tablet PO 1,000 mg DAILY WILLIAMS Administration Folic Acid 1 mg 06/28/20 09:00 06/29/20 07:31 Folic Acid 1 Mg Tab PO 1 mg DAILY WILLIAMS Administration Cefepime HCl 1 gm/ Sodium 100 mls @ 200 mls/hr 06/28/20 13:00 06/28/20 13:10 Chloride IVPB 100 mls 1300 WILLIAMS Administration Sodium Bicarbonate 75 meq/ 1,075 mls @ 100 mls/hr 06/28/20 08:09 06/28/20 10:23 Sodium Chloride IV 1,075 mls INF WILLIAMS Administration Iron/Minerals/Multivitamins 1 tab 06/28/20 09:00 06/29/20 07:31 Multivitamin W/ Minerals 1 Tab PO 1 tab DAILY WILLIAMS Administration Magnesium Oxide 400 mg 06/28/20 09:00 06/29/20 07:31 Magnesium Oxide 400 Mg Tab PO 400 mg DAILY WILLIAMS Administration Sodium Bicarbonate 1,300 mg 06/29/20 09:00 06/29/20 07:30 Sodium Bicarbonate Tab 325 Mg Tab PO 1,300 mg TID WILLIAMS Administration Thiamine HCl 100 mg 06/28/20 09:00 06/29/20 07:31 Thiamine 100 Mg Tab PO 100 mg DAILY WILLIAMS Administration Zinc Sulfate 220 mg 06/28/20 09:00 06/29/20 07:31 Zinc Sulfate 220 Mg Cap PO 220 mg DAILY WILLIAMS Administration Hospitalist Exam Vitals: Vital Signs (12 hours) Temp Pulse Resp BP Pulse Ox 06/29/20 07:46 97.8 F 90 16 128/83 91 L 06/29/20 03:40 98.3 F 102 H 18 146/80 H 92 L Weight Admit Weight 216 lb Weight 216 lb General Appearance: NAD, awake alert Eye: PERRL, anicteric sclera Heart: RRR, no murmur, no gallops, no rubs, normal peripheral pulses Respiratory: rales (at both bases and occasional wheeze) Gastrointestinal: soft, non-tender, non-distended, normal bowel sounds, no palpable masses, no hepatomegaly Extremities: no cyanosis, no clubbing, 1+ LE edema Hosp A/P (1) KASSIE (acute kidney injury) Code(s): N17.9 - ACUTE KIDNEY FAILURE, UNSPECIFIED Status: Acute (2) Autism Code(s): F84.0 - AUTISTIC DISORDER Status: Acute (3) Transaminitis Code(s): R74.01 - ELEVATION OF LEVELS OF LIVER TRANSAMINASE LEVELS Status: Acute (4) Diabetes mellitus type 2 in obese Code(s): E11.69 - TYPE 2 DIABETES MELLITUS WITH OTHER SPECIFIED COMPLICATION; E66.9 - OBESITY, UNSPECIFIED Status: Chronic (5) Hypertension Code(s): I10 - ESSENTIAL (PRIMARY) HYPERTENSION Status: Chronic (6) Hyponatremia Code(s): E87.1 - HYPO-OSMOLALITY AND HYPONATREMIA Status: Acute - Plan * Acute Kidney injury- his renal function has not recovered. Renal ultrasound noted * Will continue to monitor, but he will likely require dialysis * HTN- blood pressure is stable * DM- blood glucose is stable * Transaminitis- improving- ? related to recent COVID infection * Hyponatremia- from volume depletion- will defer to Nephrology
[2020-06-29] MEDS: Cefepime 1 GM in Sodium Chloride 0.9% 100 ML IVPB SCH (13:39)
[2020-06-29] MEDS: Sodium Bicarbonate 75 MEQ in Sodium Chloride 0.45% 1,000 ML IV SCH (16:18)
--- NOTE | 2020-06-29 17:10 | RAD ---
EXAM: Single view of the chest HISTORY: Respiratory failure COMPARISON: 06/28/2020 FINDINGS: Single view of the chest shows an enlarged cardiomediastinal silhouette. Scattered stable m ultifocal infiltrates are seen in the lungs. No acute osseous abnormality. IMPRESSION: Stable multifocal pneumonia
--- NOTE | 2020-06-29 17:31 | PDOC.BPN ---
- Brief Progress Note Encounter Date: 06/29/20 Encounter Time: 17:25 Came to evaluate patient for worsening dyspnea. The patient was noted to have an increase in his respiratory rate. He also was noted to have some abdominal distention. He denies any chest pain or abdominal pain. He has only had one small bowel movement, which was more liquid. He has not eaten much today. on exam he has bilateral rales, his abdomen is slightly distended, but non- tender to palpation, and bowel sounds are present. His extremities, there is mild lower extremity edema. Chest X-ray was performed, and lung parenchyma appear about the same. He has some gaseous distention of the abdomen. ABG was ordered. but not performed, due to shortage of the reagent. Will check a BMP to assess his bicarb. His change in condition was discussed with Dr. Conner, as well as the patient brother who is at bedside.
[2020-06-29] MEDS ORDERED: Bisacodyl 10 MG SUPP PR PRN (17:44)
[2020-06-29] MEDS ORDERED: Bisacodyl 10 MG SUPP PR SCH (17:45)
[2020-06-29 18:38] LABS: Anion Gap 23 mmol/L (10-20); Calc. Creatinine Clearance 10 mL/min (70-130); Calcium 7.8 mg/dL (7.8-10.44); Carbon Dioxide 13 mmol/L (22-29); Chloride 93 mmol/L (98-107); Glucose 108 mg/dL (70-105); Potassium 4.7 mmol/L (3.5-5.1); Sodium 124 mmol/L (136-145)
[2020-06-29 18:50] LABS: BUN (Urea Nitrogen) 125 mg/dL (8.4-25.7)
[2020-06-30] MEDS: Sodium Bicarbonate 150 MEQ in Dextrose 5% in Water 1,000 ML IV SCH (04:57)
[2020-06-30] MEDS: Acetaminophen 325 MG TAB PO PRN (05:05)
[2020-06-30 06:17] LABS: Band 3 % (5-11); Hemoglobin 14.9 g/dL (14.0-18.0); MDiff Complete? YES; Mean Corpuscular HGB CONC 33.5 g/dL (32.0-36.0); Mean Corpuscular Hemoglobin 28.4 pg (27.0-31.0); Mean Corpuscular Volume 84.7 fL (78.0-98.0); Mean Platelet Volume 7.6 fL (7.4-10.4); Monocytes 5 % (0-10); Neutrophil 92 % (42-75); Platelet Count 370 thou/uL (130-400); Red Blood Cell (RBC) Count 5.25 mill/uL (4.70-6.10); White Blood Cell (WBC) Count 17.2 thou/uL (4.8-10.8)
[2020-06-30 06:19] LABS: ALT (SGPT) 296 U/L (8-55); AST (SGOT) 348 U/L (5-34); Albumin 2.3 g/dL (3.5-5.0); Alkaline Phosphatase 161 U/L (40-110); Anion Gap 27 mmol/L (10-20); Bilirubin, Total 0.7 mg/dL (0.2-1.2); Calc. Creatinine Clearance 9 mL/min (70-130); Calcium 7.8 mg/dL (7.8-10.44); Carbon Dioxide 15 mmol/L (22-29); Chloride 92 mmol/L (98-107); Globulin 4.1 g/dL (2.4-3.5); Glucose 82 mg/dL (70-105); Potassium 4.8 mmol/L (3.5-5.1); Protein, Total 6.4 g/dL (6.0-8.3); Sodium 129 mmol/L (136-145)
[2020-06-30 07:04] LABS: BUN (Urea Nitrogen) 140 mg/dL (8.4-25.7)
--- NOTE | 2020-06-30 09:11 | PDOC.HOSPP ---
- Subjective Encounter Date: 06/30/20 Encounter Time: 09:10 Subjective: Mr. Kemp was seen today in follow-up of COVID infection and renal failure. He has been stable overnight. He denies feeling short of breath. He had a large bowel movement. His appetite is still very poor. His brother is at bedside. - Objective Vital Signs & Weight: Vital Signs (12 hours) Temp Pulse Resp BP BP Pulse Ox 06/30/20 07:06 98.1 F 06/30/20 05:05 100.4 F H 06/30/20 04:00 100.4 F H 106 H 24 H 141/71 H 141/71 H 91 L 06/30/20 00:00 105 H 16 127/72 94 L Weight Admit Weight 216 lb Weight 228 lb 14.4 oz I&O: 06/29/20 06/30/20 07/01/20 06:59 06:59 06:59 Intake Total 2960 888 Output Total 1003 Balance 1957 888 Result Diagrams: 06/30/20 05:03 06/30/20 05:03 Additional Labs: Accuchecks 06/30/20 06/29/20 06/29/20 04:49 20:23 16:23 POC Glucose 87 94 111 H 06/29/20 10:44 POC Glucose 90 Hospitalist ROS - Medication Medications: Active Medications Generic Name Dose Route Start Last Admin Trade Name Freq PRN Reason Stop Dose Admin Acetaminophen 650 mg 06/28/20 12:23 06/30/20 05:05 Acetaminophen 325 Mg Tab PO 650 mg Q4H PRN Administration Headache/Fever or Pain Ascorbic Acid 1,000 mg 06/28/20 09:00 06/29/20 07:31 Ascorbic Acid 500 Mg Chewable Tablet PO 1,000 mg DAILY WILLIAMS Administration Folic Acid 1 mg 06/28/20 09:00 06/29/20 07:31 Folic Acid 1 Mg Tab PO 1 mg DAILY WILLIAMS Administration Cefepime HCl 1 gm/ Sodium 100 mls @ 200 mls/hr 06/28/20 13:00 06/29/20 13:39 Chloride IVPB 100 mls 1300 WILLIAMS Administration Sodium Bicarbonate 150 meq/ 1,150 mls @ 125 mls/hr 06/29/20 23:15 06/30/20 04:57 Dextrose/Water IV 1,150 mls INF WILLIAMS Administration Iron/Minerals/Multivitamins 1 tab 06/28/20 09:00 06/29/20 07:31 Multivitamin W/ Minerals 1 Tab PO 1 tab DAILY WILLIAMS Administration Magnesium Oxide 400 mg 06/28/20 09:00 06/29/20 07:31 Magnesium Oxide 400 Mg Tab PO 400 mg DAILY WILLIAMS Administration Sodium Bicarbonate 1,300 mg 06/29/20 09:00 06/29/20 20:21 Sodium Bicarbonate Tab 325 Mg Tab PO 1,300 mg TID WILLIAMS Administration Thiamine HCl 100 mg 06/28/20 09:00 06/29/20 07:31 Thiamine 100 Mg Tab PO 100 mg DAILY WILLIAMS Administration Zinc Sulfate 220 mg 06/28/20 09:00 06/29/20 07:31 Zinc Sulfate 220 Mg Cap PO 220 mg DAILY WILLIAMS Administration Hospitalist Exam Vitals: Vital Signs (12 hours) Temp Pulse Resp BP BP Pulse Ox 06/30/20 07:06 98.1 F 06/30/20 05:05 100.4 F H 06/30/20 04:00 100.4 F H 106 H 24 H 141/71 H 141/71 H 91 L 06/30/20 00:00 105 H 16 127/72 94 L Weight Admit Weight 216 lb Weight 228 lb 14.4 oz General Appearance: NAD, awake alert Eye: PERRL, anicteric sclera Heart: RRR, no murmur, no gallops, no rubs, normal peripheral pulses Respiratory: no wheezes, no ronchi, rales (at the bases) Gastrointestinal: soft, non-tender, non-distended, normal bowel sounds Extremities: no cyanosis, no edema (palpable d.p. pulses bilaterally, no lesions) Hosp A/P (1) KASSIE (acute kidney injury) Code(s): N17.9 - ACUTE KIDNEY FAILURE, UNSPECIFIED Status: Acute (2) Autism Code(s): F84.0 - AUTISTIC DISORDER Status: Acute (3) Transaminitis Code(s): R74.01 - ELEVATION OF LEVELS OF LIVER TRANSAMINASE LEVELS Status: Acute (4) Diabetes mellitus type 2 in obese Code(s): E11.69 - TYPE 2 DIABETES MELLITUS WITH OTHER SPECIFIED COMPLICATION; E66.9 - OBESITY, UNSPECIFIED Status: Chronic (5) Hypertension Code(s): I10 - ESSENTIAL (PRIMARY) HYPERTENSION Status: Chronic (6) Hyponatremia Code(s): E87.1 - HYPO-OSMOLALITY AND HYPONATREMIA Status: Acute - Plan * Acute Kidney injury- His GFR remains low, and he continues with metabolic acidosis, which has improved with IV bicarb infusion * Further recommendations per Nephrology * HTN- blood pressure is stable * DM- blood glucose is stable * Transaminitis- improving- ? related to recent COVID infection * Hyponatremia- slightly improved continue to monitor * COVID infection- he now is requiring some supplemental oxygen- Decadron has been added
[2020-06-30] MEDS: Multivitamin W/ Minerals 1 TAB PO SCH (10:02)
[2020-06-30] MEDS: Magnesium Oxide 400 MG TAB PO SCH (10:02)
[2020-06-30] MEDS: Sodium Bicarbonate Tab 325 MG TAB PO SCH ×3 (10:02→21:24)
[2020-06-30] MEDS: Dexamethasone 4 mg/ml Vial SLOW IVP SCH (10:02)
[2020-06-30] MEDS: Ascorbic Acid 500 mg Chewable Tablet PO SCH (10:03)
[2020-06-30] MEDS: Thiamine 100 MG TAB PO SCH (10:03)
[2020-06-30] MEDS: Zinc Sulfate 220 MG CAP PO SCH (10:03)
[2020-06-30] MEDS: Folic Acid 1 MG TAB PO SCH (10:03)
[2020-06-30] MEDS ORDERED: Lidocaine 1% (PF) 30 ML VIAL ONE (11:40)
--- NOTE | 2020-06-30 13:37 | PDOC.NEPPN ---
- Subjective Encounter Date: 06/30/20 Subjective: Seen and examined. Urine output has improved but patient continues to feel very poorly. Having hiccups. Appetite remained very poor. Having intermittent low grade fever and oxygen requirement is trending up. Respiratory distress mildly improved with bicarb infusion. - Objective Vital Signs & Weight: Vital Signs (12 hours) Temp Pulse Resp BP BP Pulse Ox 06/30/20 08:45 98.5 F 96 16 140/84 94 L 06/30/20 07:06 98.1 F 06/30/20 05:05 100.4 F H 06/30/20 04:00 100.4 F H 106 H 24 H 141/71 H 141/71 H 91 L Weight Admit Weight 216 lb Weight 228 lb 14.4 oz I&O: 06/29/20 06/30/20 07/01/20 06:59 06:59 06:59 Intake Total 2960 888 Output Total 1003 Balance 1957 888 Result Diagrams: 06/30/20 05:03 06/30/20 05:03 Additional Labs: Accuchecks 06/30/20 06/30/20 06/29/20 10:41 04:49 20:23 POC Glucose 149 H 87 94 06/29/20 16:23 POC Glucose 111 H Nephrology ROS - Medication Medications: Active Medications Generic Name Dose Route Start Last Admin Trade Name Lewisq PRN Reason Stop Dose Admin Acetaminophen 650 mg 06/28/20 12:23 06/30/20 05:05 Acetaminophen 325 Mg Tab PO 650 mg Q4H PRN Administration Headache/Fever or Pain Ascorbic Acid 1,000 mg 06/28/20 09:00 06/30/20 10:03 Ascorbic Acid 500 Mg Chewable Tablet PO 1,000 mg DAILY WILLIAMS Administration Dexamethasone 6 mg 06/30/20 09:00 06/30/20 10:02 Dexamethasone 4 Mg/Ml Vial SLOW IVP 6 mg DAILY WILLIAMS Administration Folic Acid 1 mg 06/28/20 09:00 06/30/20 10:03 Folic Acid 1 Mg Tab PO 1 mg DAILY WILLIAMS Administration Cefepime HCl 1 gm/ Sodium 100 mls @ 200 mls/hr 06/28/20 13:00 06/29/20 13:39 Chloride IVPB 100 mls 1300 WILLIAMS Administration Sodium Bicarbonate 150 meq/ 1,150 mls @ 125 mls/hr 06/29/20 23:15 06/30/20 04:57 Dextrose/Water IV 1,150 mls INF WILLIAMS Administration Iron/Minerals/Multivitamins 1 tab 06/28/20 09:00 06/30/20 10:02 Multivitamin W/ Minerals 1 Tab PO 1 tab DAILY WILLIAMS Administration Magnesium Oxide 400 mg 06/28/20 09:00 06/30/20 10:02 Magnesium Oxide 400 Mg Tab PO 400 mg DAILY WILLIAMS Administration Sodium Bicarbonate 1,300 mg 06/29/20 09:00 06/30/20 10:02 Sodium Bicarbonate Tab 325 Mg Tab PO 1,300 mg TID WILLIAMS Administration Sodium Chloride 10 ml 06/27/20 16:43 06/30/20 10:03 Flush - Normal Saline 10 Ml Syringe IVF 10 ml PRN PRN Administration Saline Flush Thiamine HCl 100 mg 06/28/20 09:00 06/30/20 10:03 Thiamine 100 Mg Tab PO 100 mg DAILY WILLIASM Administration Zinc Sulfate 220 mg 06/28/20 09:00 06/30/20 10:03 Zinc Sulfate 220 Mg Cap PO 220 mg DAILY WILLIAMS Administration - Exam General Appearance: awake alert Eye: anicteric sclera ENT: normocephalic atraumatic, moist mucosa Neck: symmetric, no JVD Respiratory - other findings: fair air entry with some transmitted sound. No rhonchi Cardiovascular: RRR Gastrointestinal: soft, non-tender, non-distended, normal bowel sounds Extremities: no edema Neurological: CN's grossly intact, no focal deficits PSYCH: A&O x 3 Nephrology Results - Labs Result Diagrams: 06/30/20 05:03 06/30/20 05:03 Lab results: WBC 17.2 thou/uL (4.8-10.8) H 06/30/20 05:03 Hgb 14.9 g/dL (14.0-18.0) 06/30/20 05:03 Hct 44.4 % (42.0-52.0) 06/30/20 05:03 MCV 84.7 fL (78.0-98.0) 06/30/20 05:03 Plt Count 370 thou/uL (130-400) 06/30/20 05:03 Neutrophils % 90.7 % (42.0-75.0) H 06/28/20 04:29 Band Neuts % (Manual) 3 % (5-11) L 06/30/20 05:03 Sodium 129 mmol/L (136-145) L 06/30/20 05:03 Potassium 4.8 mmol/L (3.5-5.1) 06/30/20 05:03 Chloride 92 mmol/L (98-107) L 06/30/20 05:03 Carbon Dioxide 15 mmol/L (22-29) L 06/30/20 05:03 BUN 140 mg/dL (8.4-25.7) H 06/30/20 05:03 Creatinine 11.90 mg/dL (0.7-1.3) H 06/30/20 05:03 Glucose 82 mg/dL (70-105) 06/30/20 05:03 Lactic Acid 2.4 mmol/L (0.5-2.2) H 06/28/20 04:29 Calcium 7.8 mg/dL (7.8-10.44) 06/30/20 05:03 Total Bilirubin 0.7 mg/dL (0.2-1.2) 06/30/20 05:03 AST 348 U/L (5-34) H 06/30/20 05:03 ALT 296 U/L (8-55) H 06/30/20 05:03 Alkaline Phosphatase 161 U/L (40-110) H 06/30/20 05:03 Ammonia 85 umol/L (18-72) H 06/27/20 17:15 Creatine Kinase 284 U/L (30-200) H 06/27/20 13:56 Troponin I 0.026 ng/mL (< 0.028) 06/27/20 13:56 C-Reactive Protein 16.83 mg/dL (= or < 0.5) H 06/28/20 04:29 B-Natriuretic Peptide Less than 10.0 pg/mL (0-100) 06/27/20 13:56 Serum Total Protein 6.4 g/dL (6.0-8.3) 06/30/20 05:03 Albumin 2.3 g/dL (3.5-5.0) L 06/30/20 05:03 Lipase 242 U/L (8-78) H 06/27/20 17:15 Urine Ketones Negative mg/dL (Negative) 06/27/20 18:15 Urine Ketones Trace mg/dL (Negative) A 06/27/20 18:15 Urine Blood 1+ (Negative) A 06/27/20 18:15 Urine Nitrite Negative (Negative) 06/27/20 18:15 Ur Leukocyte Esterase 75 Nadia/uL (Negative) A 06/27/20 18:15 Urine RBC 0-3 HPF (0-3) 06/27/20 18:15 Urine WBC 21-50 HPF (0-3) A 06/27/20 18:15 Ur Squamous Epith Cells 0-3 HPF (0-3) 06/27/20 18:15 Urine Bacteria 3+ HPF (None Seen) A 06/27/20 18:15 Sodium 129 mmol/L (136-145) L 06/30/20 05:03 Potassium 4.8 mmol/L (3.5-5.1) 06/30/20 05:03 Chloride 92 mmol/L (98-107) L 06/30/20 05:03 Carbon Dioxide 15 mmol/L (22-29) L 06/30/20 05:03 Anion Gap 27 mmol/L (10-20) H 06/30/20 05:03 BUN 140 mg/dL (8.4-25.7) H 06/30/20 05:03 Creatinine 11.90 mg/dL (0.7-1.3) H 06/30/20 05:03 Glucose 82 mg/dL (70-105) 06/30/20 05:03 Calcium 7.8 mg/dL (7.8-10.44) 06/30/20 05:03 Phosphorus 6.8 mg/dL (2.3-4.7) H 06/29/20 04:38 Magnesium 2.2 mg/dL (1.6-2.6) 06/29/20 04:38 Albumin 2.3 g/dL (3.5-5.0) L 06/30/20 05:03 Nephrology AP PN - Plan Acute renal failure: Oliguric. Was anuric before. Most likely due to hemodynamic factors related to severe dehydration and acute infection. No significant change yet since admission despite fluid therapy. Worsening azotemia with Uremic encephalopathy Metabolic acidosis Hyperkalemia: Resolved Severe dehydration Shock: due to hypovolemia and acute infection due to COVID. Abnormal LFT: Due to dehydration and covid infection Hyponatremia: Due to severe volume depletion with appropriate ADH secretion. Improved with volume expansion COVID infection. HX of HTN. Respiratory distress/Tachypnea: Most likely respiratory compensation to metabolic acidosis +/- Covid. Hx Autism. PLAN/DISCUSSION Will worsening azotemia despite IVF therapy with improving urine output and persistent acidosis, in the face on covid infection with tachypnea, Patient will not do well without dialytic therapy. Moreso patient is now having frequent hiccups and oral intake/appetite is poor. I discuss need for dialysis with patient and brother(guardian) including prons and cons as well as risks. They verbalized understanding and want to proceed. We will also need a temprory dialysis catheter. And they gave consent for that as well. Continue Sodium bicarb infusion Consult Gen surgery for Temp dialysis catheter placement. Will get hepatitis serology. Will dialyze patient once access is available. Monitor intake/output. Follow renal function and electrolytes.
[2020-06-30 14:05] LABS: HBSAB Concentration Less than 8.00 mIU/mL; HBSAg Index 0.27 S/CO (0-0.99); Hep B Core Total Ab Non-Reactive (NonReactive); Hep B Core Total Index 0.24 S/CO (0-0.79); Hep B Surf AB Non-Reactive (NonReactive); Hep B Surf Ag Non-Reactive S/CO (NonReactive); Hep C IgG Ab Non-Reactive (NonReactive); Hep C Index 0.11 S/CO (0-0.79)
[2020-06-30] MEDS: Cefepime 1 GM in Sodium Chloride 0.9% 100 ML IVPB SCH (15:10)
--- NOTE | 2020-06-30 19:02 | OP ---
DATE OF PROCEDURE: 06/30/2020 PREOPERATIVE DIAGNOSIS: Acute renal failure, COVID pneumonia. POSTOPERATIVE DIAGNOSIS: Acute renal failure, COVID pneumonia. PROCEDURE PERFORMED: Right femoral dialysis catheter placement. ANESTHESIA: Local. ESTIMATED BLOOD LOSS: Minimal. COMPLICATIONS: None. TECHNIQUE: The right groin was shaved, prepped, and draped in a sterile fashion. Local anesthetic infiltrated over the right femoral vein. Femoral vein was cannulated using a 22-gauge spinal needle followed by a Seldinger needle. Wire was passed under no tension. A romero was made at the wire entrance site. The wire was used to guide to dilate the femoral vein. The Trialysis catheter was threaded to its fullest extent. Wire was removed, sutured to the skin. All ports flushed and drawn blood without difficulty, just flushed with a saline solution. Sterile dressings were placed. The patient tolerated the procedure well. The catheter is ready for use for dialysis immediately. Job ID: [id number]
[2020-07-01] MEDS: Sodium Bicarbonate 150 MEQ in Dextrose 5% in Water 1,000 ML IV SCH (06:21)
[2020-07-01 06:35] LABS: ALT (SGPT) 277 U/L (8-55); AST (SGOT) 301 U/L (5-34); Albumin 2.5 g/dL (3.5-5.0); Alkaline Phosphatase 156 U/L (40-110); Anion Gap 22 mmol/L (10-20); Bilirubin, Total 0.6 mg/dL (0.2-1.2); Calc. Creatinine Clearance 10 mL/min (70-130); Calcium 8.1 mg/dL (7.8-10.44); Carbon Dioxide 22 mmol/L (22-29); Chloride 90 mmol/L (98-107); Glucose 107 mg/dL (70-105); Potassium 4.5 mmol/L (3.5-5.1); Protein, Total 6.5 g/dL (6.0-8.3); Sodium 129 mmol/L (136-145)
[2020-07-01 06:47] LABS: BUN (Urea Nitrogen) 118 mg/dL (8.4-25.7)
[2020-07-01 07:13] LABS: Hemoglobin 14.7 g/dL (14.0-18.0); Mean Corpuscular HGB CONC 32.1 g/dL (32.0-36.0); Mean Corpuscular Hemoglobin 27.4 pg (27.0-31.0); Mean Corpuscular Volume 85.3 fL (78.0-98.0); Mean Platelet Volume 7.4 fL (7.4-10.4); Platelet Count 348 thou/uL (130-400); RBC Distribution Width 12.9 % (11.5-14.5); Red Blood Cell (RBC) Count 5.38 mill/uL (4.70-6.10); White Blood Cell (WBC) Count 16.7 thou/uL (4.8-10.8)
[2020-07-01] MEDS: Magnesium Oxide 400 MG TAB PO SCH (08:13)
[2020-07-01] MEDS: Folic Acid 1 MG TAB PO SCH (08:13)
[2020-07-01] MEDS: Dexamethasone 4 mg/ml Vial SLOW IVP SCH (08:14)
[2020-07-01] MEDS: Zinc Sulfate 220 MG CAP PO SCH (08:14)
[2020-07-01] MEDS: Ascorbic Acid 500 mg Chewable Tablet PO SCH (08:14)
[2020-07-01] MEDS: Sodium Bicarbonate Tab 325 MG TAB PO SCH ×3 (08:14→23:47)
[2020-07-01] MEDS: Multivitamin W/ Minerals 1 TAB PO SCH (08:14)
[2020-07-01] MEDS: Thiamine 100 MG TAB PO SCH (08:14)
[2020-07-01 08:15] LABS: Band 4 % (5-11); Lymphocytes 2 % (21-51); MDiff Complete? YES; Monocytes 3 % (0-10); Neutrophil 91 % (42-75); Platelet Morphology Comment Appears Adequate; RBC Morphology Normal
--- NOTE | 2020-07-01 11:11 | PDOC.NEPPN ---
- Subjective Encounter Date: 07/01/20 Subjective: Seen and examined. Feeling better. Urine output dropped after HD yesterday. Appetite and oral intake is better. Hiccups have subsided - Objective Vital Signs & Weight: Vital Signs (12 hours) Temp Pulse Resp BP BP Pulse Ox 07/01/20 07:57 96 07/01/20 04:45 99.8 F H 104 H 46 H 141/81 H 96 07/01/20 04:00 94 L 07/01/20 00:00 153/81 H 94 L 06/30/20 23:11 97.4 F L 100 24 H 153/81 H 94 L Weight Admit Weight 216 lb Weight 228 lb 6.382 oz I&O: 06/30/20 07/01/20 07/02/20 06:59 06:59 06:59 Intake Total 888 1225 Output Total 650 Balance 888 575 Result Diagrams: 07/01/20 05:50 07/01/20 05:50 Additional Labs: Accuchecks 07/01/20 06/30/20 06/30/20 04:54 22:07 21:25 POC Glucose 116 H 136 H 140 H 06/30/20 06/28/20 16:54 21:17 POC Glucose 154 H 90 Nephrology ROS - Medication Medications: Active Medications Generic Name Dose Route Start Last Admin Trade Name Lewisq PRN Reason Stop Dose Admin Acetaminophen 650 mg 06/28/20 12:23 06/30/20 05:05 Acetaminophen 325 Mg Tab PO 650 mg Q4H PRN Administration Headache/Fever or Pain Ascorbic Acid 1,000 mg 06/28/20 09:00 07/01/20 08:14 Ascorbic Acid 500 Mg Chewable Tablet PO 1,000 mg DAILY WILLIAMS Administration Dexamethasone 6 mg 06/30/20 09:00 07/01/20 08:14 Dexamethasone 4 Mg/Ml Vial SLOW IVP 6 mg DAILY WILLIAMS Administration Folic Acid 1 mg 06/28/20 09:00 07/01/20 08:13 Folic Acid 1 Mg Tab PO 1 mg DAILY WILLIAMS Administration Cefepime HCl 1 gm/ Sodium 100 mls @ 200 mls/hr 06/28/20 13:00 06/30/20 15:10 Chloride IVPB 100 mls 1300 WILLIAMS Administration Sodium Bicarbonate 150 meq/ 1,150 mls @ 125 mls/hr 06/29/20 23:15 07/01/20 06:21 Dextrose/Water IV 1,150 mls INF WILLIAMS Administration Iron/Minerals/Multivitamins 1 tab 06/28/20 09:00 07/01/20 08:14 Multivitamin W/ Minerals 1 Tab PO 1 tab DAILY WILLIAMS Administration Magnesium Oxide 400 mg 06/28/20 09:00 07/01/20 08:13 Magnesium Oxide 400 Mg Tab PO 400 mg DAILY WILLIAMS Administration Sodium Bicarbonate 1,300 mg 06/29/20 09:00 07/01/20 08:14 Sodium Bicarbonate Tab 325 Mg Tab PO 1,300 mg TID WILLIAMS Administration Sodium Chloride 10 ml 06/27/20 16:43 06/30/20 10:03 Flush - Normal Saline 10 Ml Syringe IVF 10 ml PRN PRN Administration Saline Flush Thiamine HCl 100 mg 06/28/20 09:00 07/01/20 08:14 Thiamine 100 Mg Tab PO 100 mg DAILY WILLIAMS Administration Zinc Sulfate 220 mg 06/28/20 09:00 07/01/20 08:14 Zinc Sulfate 220 Mg Cap PO 220 mg DAILY WILLIAMS Administration - Exam General Appearance: awake alert Eye: anicteric sclera ENT: normocephalic atraumatic, moist mucosa Neck: supple, symmetric, no JVD Respiratory - other findings: fair air entry with transmitted sound Cardiovascular: RRR Gastrointestinal: soft, non-tender, non-distended, normal bowel sounds Extremities: no edema Neurological: CN's grossly intact, no focal deficits PSYCH: oriented to person, oriented to place Nephrology Results - Labs Result Diagrams: 07/01/20 05:50 07/01/20 05:50 Lab results: WBC 16.7 thou/uL (4.8-10.8) H 07/01/20 05:50 Hgb 14.7 g/dL (14.0-18.0) 07/01/20 05:50 Hct 45.9 % (42.0-52.0) 07/01/20 05:50 MCV 85.3 fL (78.0-98.0) 07/01/20 05:50 Plt Count 348 thou/uL (130-400) 07/01/20 05:50 Neutrophils % 90.7 % (42.0-75.0) H 06/28/20 04:29 Band Neuts % (Manual) 4 % (5-11) L 07/01/20 05:50 Sodium 129 mmol/L (136-145) L 07/01/20 05:50 Potassium 4.5 mmol/L (3.5-5.1) 07/01/20 05:50 Chloride 90 mmol/L (98-107) L 07/01/20 05:50 Carbon Dioxide 22 mmol/L (22-29) 07/01/20 05:50 BUN 118 mg/dL (8.4-25.7) H 07/01/20 05:50 Creatinine 11.54 mg/dL (0.7-1.3) H 07/01/20 05:50 Glucose 107 mg/dL (70-105) H 07/01/20 05:50 Lactic Acid 2.4 mmol/L (0.5-2.2) H 06/28/20 04:29 Calcium 8.1 mg/dL (7.8-10.44) 07/01/20 05:50 Total Bilirubin 0.6 mg/dL (0.2-1.2) 07/01/20 05:50 AST 301 U/L (5-34) H 07/01/20 05:50 ALT 277 U/L (8-55) H 07/01/20 05:50 Alkaline Phosphatase 156 U/L (40-110) H 07/01/20 05:50 Ammonia 85 umol/L (18-72) H 06/27/20 17:15 Creatine Kinase 284 U/L (30-200) H 06/27/20 13:56 Troponin I 0.026 ng/mL (< 0.028) 06/27/20 13:56 C-Reactive Protein 16.83 mg/dL (= or < 0.5) H 06/28/20 04:29 B-Natriuretic Peptide Less than 10.0 pg/mL (0-100) 06/27/20 13:56 Serum Total Protein 6.5 g/dL (6.0-8.3) 07/01/20 05:50 Albumin 2.5 g/dL (3.5-5.0) L 07/01/20 05:50 Lipase 242 U/L (8-78) H 06/27/20 17:15 Urine Ketones Negative mg/dL (Negative) 06/27/20 18:15 Urine Ketones Trace mg/dL (Negative) A 06/27/20 18:15 Urine Blood 1+ (Negative) A 06/27/20 18:15 Urine Nitrite Negative (Negative) 06/27/20 18:15 Ur Leukocyte Esterase 75 Nadia/uL (Negative) A 06/27/20 18:15 Urine RBC 0-3 HPF (0-3) 06/27/20 18:15 Urine WBC 21-50 HPF (0-3) A 06/27/20 18:15 Ur Squamous Epith Cells 0-3 HPF (0-3) 06/27/20 18:15 Urine Bacteria 3+ HPF (None Seen) A 06/27/20 18:15 Sodium 129 mmol/L (136-145) L 07/01/20 05:50 Potassium 4.5 mmol/L (3.5-5.1) 07/01/20 05:50 Chloride 90 mmol/L (98-107) L 07/01/20 05:50 Carbon Dioxide 22 mmol/L (22-29) 07/01/20 05:50 Anion Gap 22 mmol/L (10-20) H 07/01/20 05:50 BUN 118 mg/dL (8.4-25.7) H 07/01/20 05:50 Creatinine 11.54 mg/dL (0.7-1.3) H 07/01/20 05:50 Glucose 107 mg/dL (70-105) H 07/01/20 05:50 Calcium 8.1 mg/dL (7.8-10.44) 07/01/20 05:50 Phosphorus 6.8 mg/dL (2.3-4.7) H 06/29/20 04:38 Magnesium 2.2 mg/dL (1.6-2.6) 06/29/20 04:38 Albumin 2.5 g/dL (3.5-5.0) L 07/01/20 05:50 Nephrology AP PN - Plan Acute renal failure: Most likely due to hemodynamic factors related to severe dehydration and acute infection. Initiated on HD 06/30/2020 due to worsening azotemia with Uremic encephalopathy Marked azotemia with uremic encephalopathy Metabolic acidosis Hyperkalemia: Resolved Severe dehydration: resolved Shock: due to hypovolemia and acute infection due to COVID. Improved Abnormal LFT: Due to dehydration and covid infection Hyponatremia: Due to severe volume depletion with appropriate ADH secretion. Improving COVID infection. HX of HTN. Respiratory distress/Tachypnea: Most likely respiratory compensation to metabolic acidosis +/- Covid. Improving. Hx Autism. PLAN For Hd today. 2nd treatment. See EMR for HD orders Continue Sodium bicarb infusion Monitor oral intake, urine output, renal function and electrolytes.
[2020-07-01] MEDS ORDERED: Heparin 10,000 UNITS/ 10 ML VIAL ONE (12:05)
[2020-07-01] MEDS ORDERED: Activase 2 MG VIAL CATH SCH (13:15)
--- NOTE | 2020-07-01 13:38 | PDOC.HOSPP ---
- Subjective Encounter Date: 07/01/20 Encounter Time: 13:36 Subjective: Mr. Kemp was seen today in follow-up of End stage renal disease and COVID infection. He is feeling much better. His appetite has improved. - Objective Vital Signs & Weight: Vital Signs (12 hours) Temp Pulse Resp BP Pulse Ox 07/01/20 12:25 99.2 F 86 18 121/81 96 07/01/20 08:00 98.4 F 94 24 H 158/84 H 100 07/01/20 07:57 96 07/01/20 04:45 99.8 F H 104 H 46 H 141/81 H 96 07/01/20 04:00 94 L Weight Admit Weight 216 lb Weight 228 lb 6.382 oz I&O: 06/30/20 07/01/20 07/02/20 06:59 06:59 06:59 Intake Total 888 1225 Output Total 650 Balance 888 575 Result Diagrams: 07/01/20 05:50 07/01/20 05:50 Additional Labs: Accuchecks 07/01/20 07/01/20 06/30/20 12:02 04:54 22:07 POC Glucose 197 H 116 H 136 H 06/30/20 06/30/20 06/28/20 21:25 16:54 21:17 POC Glucose 140 H 154 H 90 Hospitalist ROS - Medication Medications: Active Medications Generic Name Dose Route Start Last Admin Trade Name Freq PRN Reason Stop Dose Admin Acetaminophen 650 mg 06/28/20 12:23 06/30/20 05:05 Acetaminophen 325 Mg Tab PO 650 mg Q4H PRN Administration Headache/Fever or Pain Ascorbic Acid 1,000 mg 06/28/20 09:00 07/01/20 08:14 Ascorbic Acid 500 Mg Chewable Tablet PO 1,000 mg DAILY WILLIAMS Administration Dexamethasone 6 mg 06/30/20 09:00 07/01/20 08:14 Dexamethasone 4 Mg/Ml Vial SLOW IVP 6 mg DAILY WILLIAMS Administration Folic Acid 1 mg 06/28/20 09:00 07/01/20 08:13 Folic Acid 1 Mg Tab PO 1 mg DAILY WILLIAMS Administration Cefepime HCl 1 gm/ Sodium 100 mls @ 200 mls/hr 06/28/20 13:00 06/30/20 15:10 Chloride IVPB 100 mls 1300 WILLIAMS Administration Sodium Bicarbonate 150 meq/ 1,150 mls @ 125 mls/hr 06/29/20 23:15 07/01/20 06:21 Dextrose/Water IV 1,150 mls INF WILLIAMS Administration Iron/Minerals/Multivitamins 1 tab 06/28/20 09:00 07/01/20 08:14 Multivitamin W/ Minerals 1 Tab PO 1 tab DAILY WILLIAMS Administration Magnesium Oxide 400 mg 06/28/20 09:00 07/01/20 08:13 Magnesium Oxide 400 Mg Tab PO 400 mg DAILY WILLIAMS Administration Sodium Bicarbonate 1,300 mg 06/29/20 09:00 07/01/20 08:14 Sodium Bicarbonate Tab 325 Mg Tab PO 1,300 mg TID WILLIAMS Administration Sodium Chloride 10 ml 06/27/20 16:43 06/30/20 10:03 Flush - Normal Saline 10 Ml Syringe IVF 10 ml PRN PRN Administration Saline Flush Thiamine HCl 100 mg 06/28/20 09:00 07/01/20 08:14 Thiamine 100 Mg Tab PO 100 mg DAILY WILLIAMS Administration Zinc Sulfate 220 mg 06/28/20 09:00 07/01/20 08:14 Zinc Sulfate 220 Mg Cap PO 220 mg DAILY WILLIAMS Administration Hospitalist Exam Vitals: Vital Signs (12 hours) Temp Pulse Resp BP Pulse Ox 07/01/20 12:25 99.2 F 86 18 121/81 96 07/01/20 08:00 98.4 F 94 24 H 158/84 H 100 07/01/20 07:57 96 07/01/20 04:45 99.8 F H 104 H 46 H 141/81 H 96 07/01/20 04:00 94 L Weight Admit Weight 216 lb Weight 228 lb 6.382 oz Eye: PERRL, anicteric sclera Heart: RRR, no murmur, no gallops, no rubs, normal peripheral pulses Respiratory: CTAB, no wheezes, no rales, no ronchi, no tachypnea Gastrointestinal: soft, non-tender, non-distended, normal bowel sounds, no palpable masses, no hepatomegaly Extremities: no cyanosis (+ good d.p. pulses bilaterally, no lesions), 1+ LE edema Hosp A/P (1) KASSIE (acute kidney injury) Code(s): N17.9 - ACUTE KIDNEY FAILURE, UNSPECIFIED Status: Acute (2) Autism Code(s): F84.0 - AUTISTIC DISORDER Status: Acute (3) Transaminitis Code(s): R74.01 - ELEVATION OF LEVELS OF LIVER TRANSAMINASE LEVELS Status: Acute (4) Diabetes mellitus type 2 in obese Code(s): E11.69 - TYPE 2 DIABETES MELLITUS WITH OTHER SPECIFIED COMPLICATION; E66.9 - OBESITY, UNSPECIFIED Status: Chronic (5) Hypertension Code(s): I10 - ESSENTIAL (PRIMARY) HYPERTENSION Status: Chronic (6) Hyponatremia Code(s): E87.1 - HYPO-OSMOLALITY AND HYPONATREMIA Status: Acute - Plan * Acute Kidney injury- he had a dialysis catheter placed, and the plan is to start dialysis * HTN- blood pressure is stable * DM- blood glucose is stable * Transaminitis- improving- ? related to recent COVID infection * Hyponatremia- slightly improved continue to monitor * COVID infection- he now is requiring some supplemental oxygen- Continue Decadron
[2020-07-01] MEDS: HumaLOG 300 UNITS/3 ML VIAL SC PRN (14:06)
[2020-07-01] MEDS: Cefepime 1 GM in Sodium Chloride 0.9% 100 ML IVPB SCH ×2 (18:41→23:43)
--- NOTE | 2020-07-01 21:43 | OP ---
DATE OF PROCEDURE: 07/01/2020 PREOPERATIVE DIAGNOSES: Acute renal failure, COVID pneumonia, type 2 diabetes mellitus, hypertension, gout, left antecubital IV removed, right wrist IV removed, nonfunctioning right groin hemodialysis catheter (I could aspirate each port flushed them). PROCEDURE PERFORMED: Left femoral vein Trialysis catheter. ANESTHESIA: 1% Xylocaine. DESCRIPTION OF PROCEDURE: With the patient at bedside, left groin was clipped of hair, prepared with ChloraPrep and draped in routine fashion. Local anesthetic 1% Xylocaine was infiltrated in the skin and subcutaneous tissue about the operative site. Trocar catheter cannulated the femoral vein. J-wire threaded, trocar catheter removed. Skin site enlarged sharply. Trialysis catheter placed over the J-wire and J-wire removed. Catheter secured with 3-0 nylon suture. Each port aspirated blood flushed with heparinized saline solution. The patient tolerated the procedure well. Job ID: [id number]
[2020-07-02 00:07] LABS: Mycoplasma pneumoniae IgG AB 379 U/mL (0-99); Mycoplasma pneumoniae IgM AB Less than 770 U/mL (0-769)
[2020-07-02] MEDS: Acetaminophen 325 MG TAB PO PRN (04:28)
[2020-07-02 05:53] LABS: #Basophils 0.1 thou/uL (0.0-0.2); #Lymphocytes 0.5 thou/uL (1.20-3.40); #Monocytes 0.8 thou/uL (0.11-0.59); #Neutrophils 12.8 thou/uL (1.40-6.50); %Basophils 0.4 % (0.0-1.0); %Lymphocytes 3.3 % (21.0-51.0); %Monocytes 5.7 % (0.0-10.0); %Neutrophils 90.6 % (42.0-75.0); Hemoglobin 13.6 g/dL (14.0-18.0); Mean Corpuscular HGB CONC 31.2 g/dL (32.0-36.0); Mean Corpuscular Hemoglobin 26.6 pg (27.0-31.0); Mean Corpuscular Volume 85.3 fL (78.0-98.0); Mean Platelet Volume 7.5 fL (7.4-10.4); Platelet Count 328 thou/uL (130-400); RBC Distribution Width 12.8 % (11.5-14.5); Red Blood Cell (RBC) Count 5.12 mill/uL (4.70-6.10); White Blood Cell (WBC) Count 14.2 thou/uL (4.8-10.8)
--- NOTE | 2020-07-02 08:18 | CON ---
DATE OF CONSULTATION: HISTORY: "Gurvinder" Shona Kemp Jr is a 59-year-old black male, works at [employer], he works through [employer]. He has a past history of hypertension. As an outpatient, he takes amlodipine, metoprolol, metformin, colchicine, and rosuvastatin. He has hypertension, diabetes, and gout. Recently diagnosed with a COVID illness, presented to the emergency room. He had a CAT scan of the abdomen and pelvis without any acute findings except for lung changes at the bases consistent with COVID. Chest x-ray was obtained revealing changes of COVID. He had serology demonstrated COVID illness on 06/27/2020. He was admitted to hospitalist service, Dr. Conner has seen him. The patient was noted at home to be experiencing malaise and lethargy, but no fever or chills. He felt better on EMS arrival and declined any problems. In the emergency room, his sats were low on room air at 92%, blood pressure 98/66, heart rate 83. BNP less than 10. Potassium 5.5. Bicarb 18. There is no known past history of chronic kidney disease. He reports good urine output, however, he has been found to have changes with renal failure. Renal ultrasound obtained was unremarkable. Dr. Conner saw him in consultation. Dr. Ramesh placed a right femoral Trialysis catheter. The patient was given fluid boluses, urine electrolytes, and dialysis initiated. I was called because his right femoral vein Trialysis catheter was not working. I was asked to place another one. He had a left antecubital IV that I have taken out. He has a right wrist IV that I have taken out. He has plenty IV lines in his groins that can be used. He has been urinating to some degree. Sodium 129, potassium 4.5, creatinine 11, BUN 118, and GFR 6. ALLERGIES: NONE. SOCIAL HISTORY: Tobacco, none. Alcohol, none. MEDICATIONS: At home, he takes rosuvastatin, colchicine, metformin, metoprolol, and amlodipine. PAST MEDICAL HISTORY: Diabetes, hypertension, gout. PAST SURGICAL HISTORY: Noncontributory. No past cardiac problems. PHYSICAL EXAMINATION: VITAL SIGNS: Height 5 feet 8 inches, weight 228 pounds, BMI 35. Temperature 99.2, heart rate 86, blood pressure 121/81. HEAD, EARS, EYES, NOSE, AND THROAT: Unremarkable. LUNGS: Clear to auscultation. CARDIAC: Regular rate and rhythm without murmur or gallop. ABDOMEN : Soft, nontender. EXTREMITIES: Palpable radial pulses. Left antecubital IV removed. Right forearm IV removed. Left groin Trialysis catheter, aspirated each port and all aspirated and flushed. Extremities unremarkable. ASSESSMENT AND PLAN: Renal failure. PLAN: 1. Placement of a new femoral vein dialysis catheter. 2. Protect veins in case he needs more permanent dialysis access in the future. 3. Diabetes mellitus type 2. 4. Hypertension. 5. Gout. Job ID: [id number]
--- NOTE | 2020-07-02 09:12 | PDOC.NEPPN ---
- Subjective Encounter Date: 07/02/20 Subjective: Seen in follow up for ARF. Developed fever earlier today. Right groin HD access was dysfunction hence left groin access was placed yesterday. Urine output could not be accurately measured. Oral intake is improving. - Objective Vital Signs & Weight: Vital Signs (12 hours) Temp Pulse Resp BP Pulse Ox 07/02/20 04:58 99.0 F 07/02/20 04:28 102.1 F H 07/02/20 04:11 102.1 F H 102 H 26 H 142/83 H 93 L 07/02/20 02:38 99 07/01/20 23:25 98.7 F 93 20 159/70 H 99 Weight Admit Weight 216 lb Weight 228 lb 6.382 oz I&O: 07/01/20 07/02/20 07/03/20 06:59 06:59 06:59 Intake Total 1225 Output Total 650 Balance 575 Result Diagrams: 07/02/20 04:47 07/01/20 05:50 Additional Labs: Accuchecks 07/02/20 07/01/20 07/01/20 04:36 20:44 16:42 POC Glucose 116 H 95 131 H 07/01/20 06/28/20 12:02 21:17 POC Glucose 197 H 90 Nephrology ROS - Medication Medications: Active Medications Generic Name Dose Route Start Last Admin Trade Name Freq PRN Reason Stop Dose Admin Acetaminophen 650 mg 06/28/20 12:23 07/02/20 04:28 Acetaminophen 325 Mg Tab PO 650 mg Q4H PRN Administration Headache/Fever or Pain Ascorbic Acid 1,000 mg 06/28/20 09:00 07/01/20 08:14 Ascorbic Acid 500 Mg Chewable Tablet PO 1,000 mg DAILY WILLIAMS Administration Dexamethasone 6 mg 06/30/20 09:00 07/01/20 08:14 Dexamethasone 4 Mg/Ml Vial SLOW IVP 6 mg DAILY WILLIAMS Administration Folic Acid 1 mg 06/28/20 09:00 07/01/20 08:13 Folic Acid 1 Mg Tab PO 1 mg DAILY WILLIAMS Administration Sodium Bicarbonate 150 meq/ 1,150 mls @ 125 mls/hr 06/29/20 23:15 07/01/20 06:21 Dextrose/Water IV 1,150 mls INF WILLIAMS Administration Cefepime HCl 1 gm/ Sodium 100 mls @ 200 mls/hr 07/01/20 21:00 07/01/20 23:43 Chloride IVPB 100 mls 2100 WILLIAMS Administration Insulin Human Lispro 0 units 06/27/20 18:39 07/01/20 14:06 Humalog 300 Units/3 Ml Vial SC 2 unit .MILD SLIDING SCALE PRN Administration Mild Correctional Scale Iron/Minerals/Multivitamins 1 tab 06/28/20 09:00 07/01/20 08:14 Multivitamin W/ Minerals 1 Tab PO 1 tab DAILY WILLIAMS Administration Magnesium Oxide 400 mg 06/28/20 09:00 07/01/20 08:13 Magnesium Oxide 400 Mg Tab PO 400 mg DAILY WILLIAMS Administration Sodium Bicarbonate 1,300 mg 06/29/20 09:00 07/01/20 23:47 Sodium Bicarbonate Tab 325 Mg Tab PO 1,300 mg TID WILLIAMS Administration Sodium Chloride 10 ml 06/27/20 16:43 06/30/20 10:03 Flush - Normal Saline 10 Ml Syringe IVF 10 ml PRN PRN Administration Saline Flush Thiamine HCl 100 mg 06/28/20 09:00 07/01/20 08:14 Thiamine 100 Mg Tab PO 100 mg DAILY WILLIAMS Administration Zinc Sulfate 220 mg 06/28/20 09:00 07/01/20 08:14 Zinc Sulfate 220 Mg Cap PO 220 mg DAILY WILLIAMS Administration - Exam General Appearance: awake alert Eye: anicteric sclera ENT: normocephalic atraumatic, dry oral mucosa Neck: symmetric, no JVD Respiratory - other findings: fair air entry bilaterally with some tramnsmitted sound Cardiovascular: RRR Gastrointestinal: soft, non-tender, non-distended Extremities: no edema Neurological: CN's grossly intact, no focal deficits PSYCH: oriented to person, oriented to place Psychiatric - other findings: occasional confusion noted Nephrology Results - Labs Result Diagrams: 07/02/20 04:47 07/01/20 05:50 Lab results: WBC 14.2 thou/uL (4.8-10.8) H 07/02/20 04:47 Hgb 13.6 g/dL (14.0-18.0) L 07/02/20 04:47 Hct 43.6 % (42.0-52.0) 07/02/20 04:47 MCV 85.3 fL (78.0-98.0) 07/02/20 04:47 Plt Count 328 thou/uL (130-400) 07/02/20 04:47 Neutrophils % 90.6 % (42.0-75.0) H 07/02/20 04:47 Band Neuts % (Manual) 4 % (5-11) L 07/01/20 05:50 Sodium 129 mmol/L (136-145) L 07/01/20 05:50 Potassium 4.5 mmol/L (3.5-5.1) 07/01/20 05:50 Chloride 90 mmol/L (98-107) L 07/01/20 05:50 Carbon Dioxide 22 mmol/L (22-29) 07/01/20 05:50 BUN 118 mg/dL (8.4-25.7) H 07/01/20 05:50 Creatinine 11.54 mg/dL (0.7-1.3) H 07/01/20 05:50 Glucose 107 mg/dL (70-105) H 07/01/20 05:50 Lactic Acid 2.4 mmol/L (0.5-2.2) H 06/28/20 04:29 Calcium 8.1 mg/dL (7.8-10.44) 07/01/20 05:50 Total Bilirubin 0.6 mg/dL (0.2-1.2) 07/01/20 05:50 AST 301 U/L (5-34) H 07/01/20 05:50 ALT 277 U/L (8-55) H 07/01/20 05:50 Alkaline Phosphatase 156 U/L (40-110) H 07/01/20 05:50 Ammonia 85 umol/L (18-72) H 06/27/20 17:15 Creatine Kinase 284 U/L (30-200) H 06/27/20 13:56 Troponin I 0.026 ng/mL (< 0.028) 06/27/20 13:56 C-Reactive Protein 16.83 mg/dL (= or < 0.5) H 06/28/20 04:29 B-Natriuretic Peptide Less than 10.0 pg/mL (0-100) 06/27/20 13:56 Serum Total Protein 6.5 g/dL (6.0-8.3) 07/01/20 05:50 Albumin 2.5 g/dL (3.5-5.0) L 07/01/20 05:50 Lipase 242 U/L (8-78) H 06/27/20 17:15 Urine Ketones Negative mg/dL (Negative) 06/27/20 18:15 Urine Ketones Trace mg/dL (Negative) A 06/27/20 18:15 Urine Blood 1+ (Negative) A 06/27/20 18:15 Urine Nitrite Negative (Negative) 06/27/20 18:15 Ur Leukocyte Esterase 75 Nadia/uL (Negative) A 06/27/20 18:15 Urine RBC 0-3 HPF (0-3) 06/27/20 18:15 Urine WBC 21-50 HPF (0-3) A 06/27/20 18:15 Ur Squamous Epith Cells 0-3 HPF (0-3) 06/27/20 18:15 Urine Bacteria 3+ HPF (None Seen) A 06/27/20 18:15 Sodium 129 mmol/L (136-145) L 07/01/20 05:50 Potassium 4.5 mmol/L (3.5-5.1) 07/01/20 05:50 Chloride 90 mmol/L (98-107) L 07/01/20 05:50 Carbon Dioxide 22 mmol/L (22-29) 07/01/20 05:50 Anion Gap 22 mmol/L (10-20) H 07/01/20 05:50 BUN 118 mg/dL (8.4-25.7) H 07/01/20 05:50 Creatinine 11.54 mg/dL (0.7-1.3) H 07/01/20 05:50 Glucose 107 mg/dL (70-105) H 07/01/20 05:50 Calcium 8.1 mg/dL (7.8-10.44) 07/01/20 05:50 Phosphorus 6.8 mg/dL (2.3-4.7) H 06/29/20 04:38 Magnesium 2.2 mg/dL (1.6-2.6) 06/29/20 04:38 Albumin 2.5 g/dL (3.5-5.0) L 07/01/20 05:50 Nephrology AP PN - Plan Acute renal failure: Most likely due to hemodynamic factors related to severe dehydration and acute infection. Initiated on HD 06/30/2020 due to worsening azotemia with Uremic encephalopathy Marked azotemia with uremic encephalopathy Metabolic acidosis Hyperkalemia: Resolved Severe dehydration: Improved Shock: due to hypovolemia and acute infection due to COVID. Resolved. Fever: New onset. Etiology unclear. ? related to Dialysis catheter Abnormal LFT: Due to dehydration and covid infection Hyponatremia: Due to severe volume depletion with appropriate ADH secretion. Improving COVID infection. HX of HTN. Respiratory distress/Tachypnea: Most likely respiratory compensation to metabolic acidosis +/- Covid. Improving. Hx Autism. PLAN For Hd today for 3 hours. 3rd consecutive treatment. See EMR for HD orders Continue Sodium bicarb infusion Get blood cultures including from both groin access. Insert duncan catheter for accurate I/O measurement Monitor oral intake, urine output, renal function and electrolytes.
[2020-07-02] MEDS: Magnesium Oxide 400 MG TAB PO SCH (09:49)
[2020-07-02] MEDS: Multivitamin W/ Minerals 1 TAB PO SCH (09:49)
[2020-07-02] MEDS: Ascorbic Acid 500 mg Chewable Tablet PO SCH (09:49)
[2020-07-02] MEDS: Folic Acid 1 MG TAB PO SCH (09:49)
[2020-07-02] MEDS: Zinc Sulfate 220 MG CAP PO SCH (09:49)
[2020-07-02] MEDS: Thiamine 100 MG TAB PO SCH (09:49)
[2020-07-02] MEDS: Sodium Bicarbonate Tab 325 MG TAB PO SCH ×3 (09:50→21:45)
[2020-07-02] MEDS: Dexamethasone 4 mg/ml Vial SLOW IVP SCH (09:50)
--- NOTE | 2020-07-02 10:43 | RAD ---
PORTABLE CHEST: Date: 07/02/2020 HISTORY: Fever and shortness of breath. COMPARISON: 06/29/2020 study. FINDINGS: The multifocal infiltrative lung changes are again noted. Changes have slightly worsened with worseni ng changes within the left upper lobe. IMPRESSION: Slight worsening to the multifocal areas of infiltrate. POS: YOSHI
[2020-07-02 11:44] LABS: Anion Gap 21 mmol/L (10-20); BUN (Urea Nitrogen) 87 mg/dL (8.4-25.7); Calc. Creatinine Clearance 13 mL/min (70-130); Calcium 7.6 mg/dL (7.8-10.44); Carbon Dioxide 26 mmol/L (22-29); Chloride 87 mmol/L (98-107); Glucose 144 mg/dL (70-105); Potassium 4.4 mmol/L (3.5-5.1); Sodium 130 mmol/L (136-145)
[2020-07-02] MEDS ORDERED: Heparin 10,000 UNITS/ 10 ML VIAL ONE (11:59)
--- NOTE | 2020-07-02 13:07 | PDOC.HOSPP ---
- Subjective Encounter Date: 07/02/20 Encounter Time: 13:04 Subjective: Mr. Kemp was seen today in follow-up of COVID infection and acute on chronic kidney injury. He has been eating a little more. No new complaints. - Objective Vital Signs & Weight: Vital Signs (12 hours) Temp Pulse Resp BP Pulse Ox 07/02/20 08:45 98.7 F 86 20 131/84 93 L 07/02/20 04:58 99.0 F 07/02/20 04:28 102.1 F H 07/02/20 04:11 102.1 F H 102 H 26 H 142/83 H 93 L 07/02/20 02:38 99 Weight Admit Weight 216 lb Weight 228 lb 6.382 oz I&O: 07/01/20 07/02/20 07/03/20 06:59 06:59 06:59 Intake Total 1225 Output Total 650 Balance 575 Result Diagrams: 07/02/20 04:47 07/02/20 10:52 Additional Labs: Accuchecks 07/02/20 07/01/20 07/01/20 04:36 20:44 16:42 POC Glucose 116 H 95 131 H Hospitalist ROS - Medication Medications: Active Medications Generic Name Dose Route Start Last Admin Trade Name Freq PRN Reason Stop Dose Admin Acetaminophen 650 mg 06/28/20 12:23 07/02/20 04:28 Acetaminophen 325 Mg Tab PO 650 mg Q4H PRN Administration Headache/Fever or Pain Ascorbic Acid 1,000 mg 06/28/20 09:00 07/02/20 09:49 Ascorbic Acid 500 Mg Chewable Tablet PO 1,000 mg DAILY WILLIAMS Administration Dexamethasone 6 mg 06/30/20 09:00 07/02/20 09:50 Dexamethasone 4 Mg/Ml Vial SLOW IVP 6 mg DAILY WILLIAMS Administration Folic Acid 1 mg 06/28/20 09:00 07/02/20 09:49 Folic Acid 1 Mg Tab PO 1 mg DAILY WILLIAMS Administration Sodium Bicarbonate 150 meq/ 1,150 mls @ 125 mls/hr 06/29/20 23:15 07/01/20 06:21 Dextrose/Water IV 1,150 mls INF WILLIAMS Administration Cefepime HCl 1 gm/ Sodium 100 mls @ 200 mls/hr 07/01/20 21:00 07/01/20 23:43 Chloride IVPB 100 mls 2100 WILLIAMS Administration Insulin Human Lispro 0 units 06/27/20 18:39 07/01/20 14:06 Humalog 300 Units/3 Ml Vial SC 2 unit .MILD SLIDING SCALE PRN Administration Mild Correctional Scale Iron/Minerals/Multivitamins 1 tab 06/28/20 09:00 07/02/20 09:49 Multivitamin W/ Minerals 1 Tab PO 1 tab DAILY WILLIAMS Administration Magnesium Oxide 400 mg 06/28/20 09:00 07/02/20 09:49 Magnesium Oxide 400 Mg Tab PO 400 mg DAILY WILLIAMS Administration Sodium Bicarbonate 1,300 mg 06/29/20 09:00 07/02/20 09:50 Sodium Bicarbonate Tab 325 Mg Tab PO 1,300 mg TID WILLIAMS Administration Sodium Chloride 10 ml 06/27/20 16:43 06/30/20 10:03 Flush - Normal Saline 10 Ml Syringe IVF 10 ml PRN PRN Administration Saline Flush Thiamine HCl 100 mg 06/28/20 09:00 07/02/20 09:49 Thiamine 100 Mg Tab PO 100 mg DAILY WILLIAMS Administration Zinc Sulfate 220 mg 06/28/20 09:00 07/02/20 09:49 Zinc Sulfate 220 Mg Cap PO 220 mg DAILY WILLIAMS Administration Hospitalist Exam Vitals: Vital Signs (12 hours) Temp Pulse Resp BP Pulse Ox 07/02/20 08:45 98.7 F 86 20 131/84 93 L 07/02/20 04:58 99.0 F 07/02/20 04:28 102.1 F H 07/02/20 04:11 102.1 F H 102 H 26 H 142/83 H 93 L 07/02/20 02:38 99 Weight Admit Weight 216 lb Weight 228 lb 6.382 oz General Appearance: NAD, awake alert Eye: PERRL, anicteric sclera Heart: RRR, no murmur, no gallops, no rubs, normal peripheral pulses Respiratory: no wheezes, no ronchi, rales Gastrointestinal: soft, non-tender, non-distended, normal bowel sounds, no palpable masses Extremities: no cyanosis, no edema Hosp A/P (1) KASSIE (acute kidney injury) Code(s): N17.9 - ACUTE KIDNEY FAILURE, UNSPECIFIED Status: Acute (2) Autism Code(s): F84.0 - AUTISTIC DISORDER Status: Acute (3) Transaminitis Code(s): R74.01 - ELEVATION OF LEVELS OF LIVER TRANSAMINASE LEVELS Status: Acute (4) Diabetes mellitus type 2 in obese Code(s): E11.69 - TYPE 2 DIABETES MELLITUS WITH OTHER SPECIFIED COMPLICATION; E66.9 - OBESITY, UNSPECIFIED Status: Chronic (5) Hypertension Code(s): I10 - ESSENTIAL (PRIMARY) HYPERTENSION Status: Chronic (6) Hyponatremia Code(s): E87.1 - HYPO-OSMOLALITY AND HYPONATREMIA Status: Acute - Plan * Acute Kidney injury- he had a dialysis catheter placed, and the plan is to start dialysis * HTN- blood pressure is stable * DM- blood glucose is stable * Hyponatremia- slightly improved continue to monitor * COVID infection- He is back off of supplemental oxygen- will continue to monitor * Continue to monitor renal function
[2020-07-02] MEDS: Sodium Bicarbonate 150 MEQ in Dextrose 5% in Water 1,000 ML IV SCH (16:37)
[2020-07-02] MEDS: Cefepime 1 GM in Sodium Chloride 0.9% 100 ML IVPB SCH (21:43)
[2020-07-02] MEDS: HumaLOG 300 UNITS/3 ML VIAL SC PRN (21:50)
[2020-07-03] MEDS: Acetaminophen 325 MG TAB PO PRN (00:40)
[2020-07-03 07:25] LABS: Albumin 2.5 g/dL (3.5-5.0); Anion Gap 16 mmol/L (10-20); BUN (Urea Nitrogen) 66 mg/dL (8.4-25.7); BUN/Creatinine Ratio 9.05; Calc. Creatinine Clearance 16 mL/min (70-130); Calcium 7.6 mg/dL (7.8-10.44); Carbon Dioxide 29 mmol/L (22-29); Chloride 90 mmol/L (98-107); Glucose 100 mg/dL (70-105); Phosphorus 4.8 mg/dL (2.3-4.7); Potassium 4.1 mmol/L (3.5-5.1); Sodium 131 mmol/L (136-145)
[2020-07-03] MEDS: Dexamethasone 4 mg/ml Vial SLOW IVP SCH (08:17)
[2020-07-03 08:37] LABS: Hemoglobin 13.9 g/dL (14.0-18.0); Mean Corpuscular HGB CONC 31.5 g/dL (32.0-36.0); Mean Corpuscular Hemoglobin 27.5 pg (27.0-31.0); Mean Corpuscular Volume 87.2 fL (78.0-98.0); Mean Platelet Volume 7.9 fL (7.4-10.4); Platelet Count 246 thou/uL (130-400); RBC Distribution Width 12.8 % (11.5-14.5); Red Blood Cell (RBC) Count 5.06 mill/uL (4.70-6.10); White Blood Cell (WBC) Count 13.7 thou/uL (4.8-10.8)
[2020-07-03 10:00] LABS: Band 3 % (5-11); Lymphocytes 8 % (21-51); MDiff Complete? YES; Metamyelocyte 1 % (0-0); Monocytes 6 % (0-10); Neutrophil 81 % (42-75); RBC Morphology Normal; Reactive Lymphocytes 1 % (0-10)
[2020-07-03] MEDS: Ascorbic Acid 500 mg Chewable Tablet PO SCH (11:30)
[2020-07-03] MEDS: Sodium Bicarbonate Tab 325 MG TAB PO SCH ×3 (11:31→22:15)
[2020-07-03] MEDS: Folic Acid 1 MG TAB PO SCH (11:31)
[2020-07-03] MEDS: Zinc Sulfate 220 MG CAP PO SCH (11:31)
[2020-07-03] MEDS: Thiamine 100 MG TAB PO SCH (11:31)
[2020-07-03] MEDS: Magnesium Oxide 400 MG TAB PO SCH (11:31)
[2020-07-03] MEDS: Multivitamin W/ Minerals 1 TAB PO SCH (11:31)
[2020-07-03] MEDS: HumaLOG 300 UNITS/3 ML VIAL SC PRN ×2 (12:10→16:46)
--- NOTE | 2020-07-03 13:34 | PDOC.HOSPP ---
- Subjective Encounter Date: 07/03/20 Encounter Time: 13:32 Subjective: Mr. Kemp was seen today in follow-up of COVID infection and acute kidney injury. He is looking much better. His appetite has improved. - Objective Vital Signs & Weight: Vital Signs (12 hours) Temp Pulse Resp BP BP Pulse Ox 07/03/20 10:39 98.4 F 86 20 134/76 96 07/03/20 09:00 150/70 H 07/03/20 08:08 100.4 F H 83 20 150/70 H 95 Weight Admit Weight 216 lb Weight 228 lb 6.382 oz I&O: 07/02/20 07/03/20 07/04/20 06:59 06:59 06:59 Intake Total 1650 370 Output Total 300 Balance 1650 70 Result Diagrams: 07/03/20 06:45 07/03/20 06:45 Additional Labs: Accuchecks 07/03/20 07/03/20 07/02/20 10:39 06:05 20:23 POC Glucose 201 H 88 212 H 07/02/20 07/02/20 16:57 11:07 POC Glucose 144 H 156 H Hospitalist ROS - Medication Medications: Active Medications Generic Name Dose Route Start Last Admin Trade Name Freq PRN Reason Stop Dose Admin Acetaminophen 650 mg 06/28/20 12:23 07/03/20 00:40 Acetaminophen 325 Mg Tab PO 650 mg Q4H PRN Administration Headache/Fever or Pain Ascorbic Acid 1,000 mg 06/28/20 09:00 07/03/20 11:30 Ascorbic Acid 500 Mg Chewable Tablet PO 1,000 mg DAILY WILLIAMS Administration Dexamethasone 6 mg 06/30/20 09:00 07/03/20 08:17 Dexamethasone 4 Mg/Ml Vial SLOW IVP 6 mg DAILY WILLIAMS Administration Folic Acid 1 mg 06/28/20 09:00 07/03/20 11:31 Folic Acid 1 Mg Tab PO 1 mg DAILY WILLIAMS Administration Cefepime HCl 1 gm/ Sodium 100 mls @ 200 mls/hr 07/01/20 21:00 07/02/20 21:43 Chloride IVPB 100 mls 2100 WILLIAMS Administration Insulin Human Lispro 0 units 06/27/20 18:39 07/03/20 12:10 Humalog 300 Units/3 Ml Vial SC 3 unit .MILD SLIDING SCALE PRN Administration Mild Correctional Scale Insulin Human Lispro 0 units 06/27/20 18:39 07/02/20 21:50 Humalog 300 Units/3 Ml Vial SC 2 unit .BEDTIME SLIDING SC PRN Administration Bedtime Correctional Scale Iron/Minerals/Multivitamins 1 tab 06/28/20 09:00 07/03/20 11:31 Multivitamin W/ Minerals 1 Tab PO 1 tab DAILY WILLIAMS Administration Magnesium Oxide 400 mg 06/28/20 09:00 07/03/20 11:31 Magnesium Oxide 400 Mg Tab PO 400 mg DAILY WILLIAMS Administration Sodium Bicarbonate 1,300 mg 06/29/20 09:00 07/03/20 11:31 Sodium Bicarbonate Tab 325 Mg Tab PO 1,300 mg TID WILLIAMS Administration Sodium Chloride 10 ml 06/27/20 16:43 07/03/20 08:16 Flush - Normal Saline 10 Ml Syringe IVF 10 ml PRN PRN Administration Saline Flush Thiamine HCl 100 mg 06/28/20 09:00 07/03/20 11:31 Thiamine 100 Mg Tab PO 100 mg DAILY WILLIAMS Administration Zinc Sulfate 220 mg 06/28/20 09:00 07/03/20 11:31 Zinc Sulfate 220 Mg Cap PO 220 mg DAILY WILLIAMS Administration Hospitalist Exam Vitals: Vital Signs (12 hours) Temp Pulse Resp BP BP Pulse Ox 07/03/20 10:39 98.4 F 86 20 134/76 96 07/03/20 09:00 150/70 H 07/03/20 08:08 100.4 F H 83 20 150/70 H 95 Weight Admit Weight 216 lb Weight 228 lb 6.382 oz General Appearance: NAD, awake alert Eye: PERRL, anicteric sclera Heart: RRR, no murmur, no gallops, no rubs, normal peripheral pulses Respiratory: no wheezes, no ronchi, rales (slight rales at the bases) Gastrointestinal: soft, non-tender, non-distended, normal bowel sounds, no palpable masses, no hepatomegaly Extremities: no cyanosis, 1+ LE edema Hosp A/P (1) KASSIE (acute kidney injury) Code(s): N17.9 - ACUTE KIDNEY FAILURE, UNSPECIFIED Status: Acute (2) Autism Code(s): F84.0 - AUTISTIC DISORDER Status: Acute (3) Transaminitis Code(s): R74.01 - ELEVATION OF LEVELS OF LIVER TRANSAMINASE LEVELS Status: Acute (4) Diabetes mellitus type 2 in obese Code(s): E11.69 - TYPE 2 DIABETES MELLITUS WITH OTHER SPECIFIED COMPLICATION; E66.9 - OBESITY, UNSPECIFIED Status: Chronic (5) Hypertension Code(s): I10 - ESSENTIAL (PRIMARY) HYPERTENSION Status: Chronic (6) Hyponatremia Code(s): E87.1 - HYPO-OSMOLALITY AND HYPONATREMIA Status: Acute - Plan * Acute Kidney injury- he had a dialysis catheter placed, discussed with Dr. Conner, it is not yet clear if he will require long-term dialysis. Will monitor his lab work until the end of the week, and re-assess * HTN- blood pressure is stable * DM- blood glucose is a bit elevated- continue to monitor and SSI * Hyponatremia- slightly improved continue to monitor * COVID infection- He is back off of supplemental oxygen- will continue to monitor
--- NOTE | 2020-07-03 15:09 | PDOC.NEPPN ---
- Subjective Encounter Date: 07/03/20 Subjective: Seen and examined. Clinically better. Off oxygen supplementation. Still having intermittent fevers. - Objective Vital Signs & Weight: Vital Signs (12 hours) Temp Pulse Resp BP BP Pulse Ox 07/03/20 10:39 98.4 F 86 20 134/76 96 07/03/20 09:00 150/70 H 07/03/20 08:08 100.4 F H 83 20 150/70 H 95 Weight Admit Weight 216 lb Weight 228 lb 6.382 oz I&O: 07/02/20 07/03/20 07/04/20 06:59 06:59 06:59 Intake Total 1650 370 Output Total 300 Balance 1650 70 Result Diagrams: 07/03/20 06:45 07/03/20 06:45 Additional Labs: Accuchecks 07/03/20 07/03/20 07/02/20 10:39 06:05 20:23 POC Glucose 201 H 88 212 H 07/02/20 07/02/20 16:57 11:07 POC Glucose 144 H 156 H Nephrology ROS - Medication Medications: Active Medications Generic Name Dose Route Start Last Admin Trade Name Freq PRN Reason Stop Dose Admin Acetaminophen 650 mg 06/28/20 12:23 07/03/20 00:40 Acetaminophen 325 Mg Tab PO 650 mg Q4H PRN Administration Headache/Fever or Pain Ascorbic Acid 1,000 mg 06/28/20 09:00 07/03/20 11:30 Ascorbic Acid 500 Mg Chewable Tablet PO 1,000 mg DAILY WILLIAMS Administration Dexamethasone 6 mg 06/30/20 09:00 07/03/20 08:17 Dexamethasone 4 Mg/Ml Vial SLOW IVP 6 mg DAILY WILLIAMS Administration Folic Acid 1 mg 06/28/20 09:00 07/03/20 11:31 Folic Acid 1 Mg Tab PO 1 mg DAILY WILLIAMS Administration Cefepime HCl 1 gm/ Sodium 100 mls @ 200 mls/hr 07/01/20 21:00 07/02/20 21:43 Chloride IVPB 100 mls 2100 WILLIAMS Administration Insulin Human Lispro 0 units 06/27/20 18:39 07/03/20 12:10 Humalog 300 Units/3 Ml Vial SC 3 unit .MILD SLIDING SCALE PRN Administration Mild Correctional Scale Insulin Human Lispro 0 units 06/27/20 18:39 07/02/20 21:50 Humalog 300 Units/3 Ml Vial SC 2 unit .BEDTIME SLIDING SC PRN Administration Bedtime Correctional Scale Iron/Minerals/Multivitamins 1 tab 06/28/20 09:00 07/03/20 11:31 Multivitamin W/ Minerals 1 Tab PO 1 tab DAILY WILLIAMS Administration Magnesium Oxide 400 mg 06/28/20 09:00 07/03/20 11:31 Magnesium Oxide 400 Mg Tab PO 400 mg DAILY WILLIAMS Administration Sodium Bicarbonate 1,300 mg 06/29/20 09:00 07/03/20 11:31 Sodium Bicarbonate Tab 325 Mg Tab PO 1,300 mg TID WILLIAMS Administration Sodium Chloride 10 ml 06/27/20 16:43 07/03/20 08:16 Flush - Normal Saline 10 Ml Syringe IVF 10 ml PRN PRN Administration Saline Flush Thiamine HCl 100 mg 06/28/20 09:00 07/03/20 11:31 Thiamine 100 Mg Tab PO 100 mg DAILY WILLIAMS Administration Zinc Sulfate 220 mg 06/28/20 09:00 07/03/20 11:31 Zinc Sulfate 220 Mg Cap PO 220 mg DAILY WILLIAMS Administration - Exam General Appearance: awake alert Eye: anicteric sclera ENT: normocephalic atraumatic, moist mucosa Neck: supple, symmetric, no JVD Respiratory: no wheezes, no ronchi, normal chest expansion, no tachypnea Cardiovascular: RRR Gastrointestinal: soft, non-tender, non-distended, normal bowel sounds Extremities: no edema Neurological: CN's grossly intact, no focal deficits Musculoskeletal: generalized weakness PSYCH: oriented to person, oriented to place Nephrology Results - Labs Result Diagrams: 07/03/20 06:45 07/03/20 06:45 Lab results: WBC 13.7 thou/uL (4.8-10.8) H 07/03/20 06:45 Hgb 13.9 g/dL (14.0-18.0) L 07/03/20 06:45 Hct 44.1 % (42.0-52.0) 07/03/20 06:45 MCV 87.2 fL (78.0-98.0) 07/03/20 06:45 Plt Count 246 thou/uL (130-400) 07/03/20 06:45 Neutrophils % 90.6 % (42.0-75.0) H 07/02/20 04:47 Band Neuts % (Manual) 3 % (5-11) L 07/03/20 06:45 Sodium 131 mmol/L (136-145) L 07/03/20 06:45 Potassium 4.1 mmol/L (3.5-5.1) 07/03/20 06:45 Chloride 90 mmol/L (98-107) L 07/03/20 06:45 Carbon Dioxide 29 mmol/L (22-29) 07/03/20 06:45 BUN 66 mg/dL (8.4-25.7) H 07/03/20 06:45 Creatinine 7.29 mg/dL (0.7-1.3) H 07/03/20 06:45 Glucose 100 mg/dL (70-105) 07/03/20 06:45 Lactic Acid 2.4 mmol/L (0.5-2.2) H 06/28/20 04:29 Calcium 7.6 mg/dL (7.8-10.44) L 07/03/20 06:45 Total Bilirubin 0.6 mg/dL (0.2-1.2) 07/01/20 05:50 AST 301 U/L (5-34) H 07/01/20 05:50 ALT 277 U/L (8-55) H 07/01/20 05:50 Alkaline Phosphatase 156 U/L (40-110) H 07/01/20 05:50 Ammonia 85 umol/L (18-72) H 06/27/20 17:15 Creatine Kinase 284 U/L (30-200) H 06/27/20 13:56 Troponin I 0.026 ng/mL (< 0.028) 06/27/20 13:56 C-Reactive Protein 16.83 mg/dL (= or < 0.5) H 06/28/20 04:29 B-Natriuretic Peptide Less than 10.0 pg/mL (0-100) 06/27/20 13:56 Serum Total Protein 6.5 g/dL (6.0-8.3) 07/01/20 05:50 Albumin 2.5 g/dL (3.5-5.0) L 07/03/20 06:45 Lipase 242 U/L (8-78) H 06/27/20 17:15 Urine Ketones Negative mg/dL (Negative) 06/27/20 18:15 Urine Ketones Trace mg/dL (Negative) A 06/27/20 18:15 Urine Blood 1+ (Negative) A 06/27/20 18:15 Urine Nitrite Negative (Negative) 06/27/20 18:15 Ur Leukocyte Esterase 75 Nadia/uL (Negative) A 06/27/20 18:15 Urine RBC 0-3 HPF (0-3) 06/27/20 18:15 Urine WBC 21-50 HPF (0-3) A 06/27/20 18:15 Ur Squamous Epith Cells 0-3 HPF (0-3) 06/27/20 18:15 Urine Bacteria 3+ HPF (None Seen) A 06/27/20 18:15 Sodium 131 mmol/L (136-145) L 07/03/20 06:45 Potassium 4.1 mmol/L (3.5-5.1) 07/03/20 06:45 Chloride 90 mmol/L (98-107) L 07/03/20 06:45 Carbon Dioxide 29 mmol/L (22-29) 07/03/20 06:45 Anion Gap 16 mmol/L (10-20) 07/03/20 06:45 BUN 66 mg/dL (8.4-25.7) H 07/03/20 06:45 Creatinine 7.29 mg/dL (0.7-1.3) H 07/03/20 06:45 Glucose 100 mg/dL (70-105) 07/03/20 06:45 Calcium 7.6 mg/dL (7.8-10.44) L 07/03/20 06:45 Phosphorus 4.8 mg/dL (2.3-4.7) H 07/03/20 06:45 Magnesium 2.2 mg/dL (1.6-2.6) 06/29/20 04:38 Albumin 2.5 g/dL (3.5-5.0) L 07/03/20 06:45 Nephrology AP PN - Plan Acute renal failure: Most likely due to hemodynamic factors related to severe dehydration and acute infection. Initiated on HD 06/30/2020 due to worsening azotemia with Uremic encephalopathy. Last HD on 07/02/20. Azotemia with uremic encephalopathy Metabolic acidosis Hyperkalemia: Resolved Severe dehydration: Improved Shock: due to hypovolemia and acute infection due to COVID. Resolved. Fever: New onset. Etiology unclear. ? related to Dialysis catheter Abnormal LFT: Due to dehydration and covid infection Hyponatremia: Due to severe volume depletion with appropriate ADH secretion. Improving COVID infection. HX of HTN. Respiratory distress/Tachypnea: Most likely respiratory compensation to metabo lic acidosis +/- Covid. Improving. Hx Autism. PLAN DC Sodium bicarb infusion Remove right groin dialysis catheter and send tip for culture Monitor I/O and renal function for renal recovery. [place] oral intake advised No HD today. D/W patient brother and mother and updated them with care plan.
[2020-07-03] MEDS: Cefepime 1 GM in Sodium Chloride 0.9% 100 ML IVPB SCH (22:14)
[2020-07-04] MEDS: Acetaminophen 325 MG TAB PO PRN (00:27)
[2020-07-04 06:29] LABS: Band 2 % (5-11); Hemoglobin 12.9 g/dL (14.0-18.0); Lymphocytes 5 % (21-51); MDiff Complete? YES; Mean Corpuscular HGB CONC 32.1 g/dL (32.0-36.0); Mean Corpuscular Hemoglobin 28.1 pg (27.0-31.0); Mean Corpuscular Volume 87.4 fL (78.0-98.0); Mean Platelet Volume 7.9 fL (7.4-10.4); Monocytes 1 % (0-10); Neutrophil 91 % (42-75); Platelet Count 224 thou/uL (130-400); RBC Distribution Width 12.7 % (11.5-14.5); Reactive Lymphocytes 1 % (0-10); White Blood Cell (WBC) Count 13.9 thou/uL (4.8-10.8)
[2020-07-04 06:31] LABS: Albumin 2.3 g/dL (3.5-5.0); Anion Gap 19 mmol/L (10-20); BUN (Urea Nitrogen) 90 mg/dL (8.4-25.7); Calc. Creatinine Clearance 14 mL/min (70-130); Calcium 7.3 mg/dL (7.8-10.44); Carbon Dioxide 28 mmol/L (22-29); Chloride 88 mmol/L (98-107); Glucose 92 mg/dL (70-105); Phosphorus 4.9 mg/dL (2.3-4.7); Potassium 4.2 mmol/L (3.5-5.1); Sodium 131 mmol/L (136-145)
[2020-07-04] MEDS: Multivitamin W/ Minerals 1 TAB PO SCH (08:25)
[2020-07-04] MEDS: Ascorbic Acid 500 mg Chewable Tablet PO SCH (08:25)
[2020-07-04] MEDS: Thiamine 100 MG TAB PO SCH (08:25)
[2020-07-04] MEDS: Zinc Sulfate 220 MG CAP PO SCH (08:25)
[2020-07-04] MEDS: Folic Acid 1 MG TAB PO SCH (08:25)
[2020-07-04] MEDS: Sodium Bicarbonate Tab 325 MG TAB PO SCH ×3 (08:25→20:45)
[2020-07-04] MEDS: Magnesium Oxide 400 MG TAB PO SCH (08:25)
[2020-07-04] MEDS: Dexamethasone 4 mg/ml Vial SLOW IVP SCH (08:26)
--- NOTE | 2020-07-04 10:45 | PDOC.NEPPN ---
- Subjective Encounter Date: 07/04/20 Subjective: Seen. No new problem. Still having intermittent fever. - Objective Vital Signs & Weight: Vital Signs (12 hours) Temp Pulse Resp BP BP Pulse Ox 07/04/20 09:00 139/88 07/04/20 08:00 98 07/04/20 07:25 98.2 F 73 20 139/88 98 07/04/20 04:00 99.0 F 68 24 H 140/78 93 L 07/04/20 00:00 101.4 F H 77 24 H 138/94 H 93 L Weight Admit Weight 216 lb Weight 228 lb 6.382 oz I&O: 07/03/20 07/04/20 07/05/20 06:59 06:59 06:59 Intake Total 370 930 Output Total 300 400 700 Balance 70 530 -700 Result Diagrams: 07/04/20 05:13 07/04/20 05:13 Additional Labs: Accuchecks 07/04/20 07/03/20 07/03/20 05:57 19:56 16:27 POC Glucose 138 H 196 H 189 H 07/03/20 10:39 POC Glucose 201 H Nephrology ROS - Medication Medications: Active Medications Generic Name Dose Route Start Last Admin Trade Name Freq PRN Reason Stop Dose Admin Acetaminophen 650 mg 06/28/20 12:23 07/04/20 00:27 Acetaminophen 325 Mg Tab PO 650 mg Q4H PRN Administration Headache/Fever or Pain Ascorbic Acid 1,000 mg 06/28/20 09:00 07/04/20 08:25 Ascorbic Acid 500 Mg Chewable Tablet PO 1,000 mg DAILY WILLIAMS Administration Dexamethasone 6 mg 06/30/20 09:00 07/04/20 08:26 Dexamethasone 4 Mg/Ml Vial SLOW IVP 6 mg DAILY WILLIAMS Administration Folic Acid 1 mg 06/28/20 09:00 07/04/20 08:25 Folic Acid 1 Mg Tab PO 1 mg DAILY WILLIAMS Administration Cefepime HCl 1 gm/ Sodium 100 mls @ 200 mls/hr 07/01/20 21:00 07/03/20 22:14 Chloride IVPB 100 mls 2100 WILLIAMS Administration Insulin Human Lispro 0 units 06/27/20 18:39 07/03/20 16:46 Humalog 300 Units/3 Ml Vial SC 2 unit .MILD SLIDING SCALE PRN Administration Mild Correctional Scale Insulin Human Lispro 0 units 06/27/20 18:39 07/02/20 21:50 Humalog 300 Units/3 Ml Vial SC 2 unit .BEDTIME SLIDING SC PRN Administration Bedtime Correctional Scale Iron/Minerals/Multivitamins 1 tab 06/28/20 09:00 07/04/20 08:25 Multivitamin W/ Minerals 1 Tab PO 1 tab DAILY WILLIAMS Administration Magnesium Oxide 400 mg 06/28/20 09:00 07/04/20 08:25 Magnesium Oxide 400 Mg Tab PO 400 mg DAILY WILLIAMS Administration Sodium Bicarbonate 1,300 mg 06/29/20 09:00 07/04/20 08:25 Sodium Bicarbonate Tab 325 Mg Tab PO 1,300 mg TID WILLIAMS Administration Sodium Chloride 10 ml 06/27/20 16:43 07/04/20 08:24 Flush - Normal Saline 10 Ml Syringe IVF 10 ml PRN PRN Administration Saline Flush Thiamine HCl 100 mg 06/28/20 09:00 07/04/20 08:25 Thiamine 100 Mg Tab PO 100 mg DAILY WILLIAMS Administration Zinc Sulfate 220 mg 06/28/20 09:00 07/04/20 08:25 Zinc Sulfate 220 Mg Cap PO 220 mg DAILY WILLIAMS Administration - Exam General Appearance: awake alert Eye: anicteric sclera ENT: normocephalic atraumatic Neck: no JVD Respiratory - other findings: fair air entry with transmitted sound Cardiovascular: RRR Gastrointestinal: soft, normal bowel sounds Extremities: no edema Neurological: CN's grossly intact, no focal deficits Musculoskeletal: generalized weakness PSYCH: oriented to person, oriented to place Nephrology Results - Labs Result Diagrams: 07/04/20 05:13 07/04/20 05:13 Lab results: WBC 13.9 thou/uL (4.8-10.8) H 07/04/20 05:13 Hgb 12.9 g/dL (14.0-18.0) L 07/04/20 05:13 Hct 40.2 % (42.0-52.0) L 07/04/20 05:13 MCV 87.4 fL (78.0-98.0) 07/04/20 05:13 Plt Count 224 thou/uL (130-400) 07/04/20 05:13 Neutrophils % 90.6 % (42.0-75.0) H 07/02/20 04:47 Band Neuts % (Manual) 2 % (5-11) L 07/04/20 05:13 Sodium 131 mmol/L (136-145) L 07/04/20 05:13 Potassium 4.2 mmol/L (3.5-5.1) 07/04/20 05:13 Chloride 88 mmol/L (98-107) L 07/04/20 05:13 Carbon Dioxide 28 mmol/L (22-29) 07/04/20 05:13 BUN 90 mg/dL (8.4-25.7) H 07/04/20 05:13 Creatinine 8.33 mg/dL (0.7-1.3) H 07/04/20 05:13 Glucose 92 mg/dL (70-105) 07/04/20 05:13 Lactic Acid 2.4 mmol/L (0.5-2.2) H 06/28/20 04:29 Calcium 7.3 mg/dL (7.8-10.44) L 07/04/20 05:13 Total Bilirubin 0.6 mg/dL (0.2-1.2) 07/01/20 05:50 AST 301 U/L (5-34) H 07/01/20 05:50 ALT 277 U/L (8-55) H 07/01/20 05:50 Alkaline Phosphatase 156 U/L (40-110) H 07/01/20 05:50 Ammonia 85 umol/L (18-72) H 06/27/20 17:15 Creatine Kinase 284 U/L (30-200) H 06/27/20 13:56 Troponin I 0.026 ng/mL (< 0.028) 06/27/20 13:56 C-Reactive Protein 16.83 mg/dL (= or < 0.5) H 06/28/20 04:29 B-Natriuretic Peptide Less than 10.0 pg/mL (0-100) 06/27/20 13:56 Serum Total Protein 6.5 g/dL (6.0-8.3) 07/01/20 05:50 Albumin 2.3 g/dL (3.5-5.0) L 07/04/20 05:13 Lipase 242 U/L (8-78) H 06/27/20 17:15 Urine Ketones Negative mg/dL (Negative) 06/27/20 18:15 Urine Ketones Trace mg/dL (Negative) A 06/27/20 18:15 Urine Blood 1+ (Negative) A 06/27/20 18:15 Urine Nitrite Negative (Negative) 06/27/20 18:15 Ur Leukocyte Esterase 75 Nadia/uL (Negative) A 06/27/20 18:15 Urine RBC 0-3 HPF (0-3) 06/27/20 18:15 Urine WBC 21-50 HPF (0-3) A 06/27/20 18:15 Ur Squamous Epith Cells 0-3 HPF (0-3) 06/27/20 18:15 Urine Bacteria 3+ HPF (None Seen) A 06/27/20 18:15 Sodium 131 mmol/L (136-145) L 07/04/20 05:13 Potassium 4.2 mmol/L (3.5-5.1) 07/04/20 05:13 Chloride 88 mmol/L (98-107) L 07/04/20 05:13 Carbon Dioxide 28 mmol/L (22-29) 07/04/20 05:13 Anion Gap 19 mmol/L (10-20) 07/04/20 05:13 BUN 90 mg/dL (8.4-25.7) H 07/04/20 05:13 Creatinine 8.33 mg/dL (0.7-1.3) H 07/04/20 05:13 Glucose 92 mg/dL (70-105) 07/04/20 05:13 Calcium 7.3 mg/dL (7.8-10.44) L 07/04/20 05:13 Phosphorus 4.9 mg/dL (2.3-4.7) H 07/04/20 05:13 Magnesium 2.2 mg/dL (1.6-2.6) 06/29/20 04:38 Albumin 2.3 g/dL (3.5-5.0) L 07/04/20 05:13 Nephrology AP PN - Plan Acute renal failure: Most likely due to hemodynamic factors related to severe dehydration and acute infection. Initiated on HD 06/30/2020 due to worsening azotemia with Uremic encephalopathy. Last HD on 07/02/20. Creat is trending up since last Hd. Making some urine. Uremic encephalopathy Metabolic acidosis Hyperkalemia: Resolved Severe dehydration: Improved Shock: due to hypovolemia and acute infection due to COVID. Resolved. Fever: New onset. Etiology unclear. ? related to Dialysis catheter Abnormal LFT: Due to dehydration and covid infection Hyponatremia: Due to severe volume depletion with appropriate ADH secretion. Improving COVID infection. HX of HTN. Respiratory distress/Tachypnea: Most likely respiratory compensation to metaboli c acidosis +/- Covid. Improving. Hx Autism. PLAN Consult Gen for TDC placement as patient will still need HD Monitor I/O and renal function for renal recovery. Await culture result [place] oral intake advised No HD today. Will dialyze patient tomorrow unless there is signifinicant renal recovery Discussed with and updated brother with care plan.
[2020-07-04] MEDS: HumaLOG 300 UNITS/3 ML VIAL SC PRN ×2 (12:22→16:24)
--- NOTE | 2020-07-04 14:21 | PDOC.HOSPP ---
- Subjective Encounter Date: 07/04/20 Encounter Time: 14:19 Subjective: Ms. Kemp was seen today in follow-up of COVID infection and acute kidney injury. - Objective Vital Signs & Weight: Vital Signs (12 hours) Temp Pulse Resp BP BP Pulse Ox 07/04/20 11:11 97.5 F L 78 18 115/76 98 07/04/20 09:00 139/88 07/04/20 08:00 98 07/04/20 07:25 98.2 F 73 20 139/88 98 07/04/20 04:00 99.0 F 68 24 H 140/78 93 L Weight Admit Weight 216 lb Weight 228 lb 6.382 oz I&O: 07/03/20 07/04/20 07/05/20 06:59 06:59 06:59 Intake Total 370 930 Output Total 300 400 700 Balance 70 530 -700 Result Diagrams: 07/04/20 05:13 07/04/20 05:13 Additional Labs: Accuchecks 07/04/20 07/04/20 07/03/20 11:09 05:57 19:56 POC Glucose 161 H 138 H 196 H 07/03/20 16:27 POC Glucose 189 H Hospitalist ROS - Medication Medications: Active Medications Generic Name Dose Route Start Last Admin Trade Name Freq PRN Reason Stop Dose Admin Acetaminophen 650 mg 06/28/20 12:23 07/04/20 00:27 Acetaminophen 325 Mg Tab PO 650 mg Q4H PRN Administration Headache/Fever or Pain Ascorbic Acid 1,000 mg 06/28/20 09:00 07/04/20 08:25 Ascorbic Acid 500 Mg Chewable Tablet PO 1,000 mg DAILY WILLIAMS Administration Dexamethasone 6 mg 06/30/20 09:00 07/04/20 08:26 Dexamethasone 4 Mg/Ml Vial SLOW IVP 6 mg DAILY WILLIAMS Administration Folic Acid 1 mg 06/28/20 09:00 07/04/20 08:25 Folic Acid 1 Mg Tab PO 1 mg DAILY WILLIAMS Administration Cefepime HCl 1 gm/ Sodium 100 mls @ 200 mls/hr 07/01/20 21:00 07/03/20 22:14 Chloride IVPB 100 mls 2100 WILLIAMS Administration Insulin Human Lispro 0 units 06/27/20 18:39 07/04/20 12:22 Humalog 300 Units/3 Ml Vial SC 2 unit .MILD SLIDING SCALE PRN Administration Mild Correctional Scale Insulin Human Lispro 0 units 06/27/20 18:39 07/02/20 21:50 Humalog 300 Units/3 Ml Vial SC 2 unit .BEDTIME SLIDING SC PRN Administration Bedtime Correctional Scale Iron/Minerals/Multivitamins 1 tab 06/28/20 09:00 07/04/20 08:25 Multivitamin W/ Minerals 1 Tab PO 1 tab DAILY WILLIAMS Administration Magnesium Oxide 400 mg 06/28/20 09:00 07/04/20 08:25 Magnesium Oxide 400 Mg Tab PO 400 mg DAILY WILLIAMS Administration Sodium Bicarbonate 1,300 mg 06/29/20 09:00 07/04/20 08:25 Sodium Bicarbonate Tab 325 Mg Tab PO 1,300 mg TID WILLIAMS Administration Sodium Chloride 10 ml 06/27/20 16:43 07/04/20 08:24 Flush - Normal Saline 10 Ml Syringe IVF 10 ml PRN PRN Administration Saline Flush Thiamine HCl 100 mg 06/28/20 09:00 07/04/20 08:25 Thiamine 100 Mg Tab PO 100 mg DAILY WILLIAMS Administration Zinc Sulfate 220 mg 06/28/20 09:00 07/04/20 08:25 Zinc Sulfate 220 Mg Cap PO 220 mg DAILY WILLIAMS Administration Hospitalist Exam Vitals: Vital Signs (12 hours) Temp Pulse Resp BP BP Pulse Ox 07/04/20 11:11 97.5 F L 78 18 115/76 98 07/04/20 09:00 139/88 07/04/20 08:00 98 07/04/20 07:25 98.2 F 73 20 139/88 98 07/04/20 04:00 99.0 F 68 24 H 140/78 93 L Weight Admit Weight 216 lb Weight 228 lb 6.382 oz General Appearance: NAD, awake alert Eye: PERRL, anicteric sclera Heart: RRR, no murmur, no gallops, no rubs, normal peripheral pulses Respiratory: no wheezes, no ronchi, rales Gastrointestinal: soft, non-tender, non-distended, normal bowel sounds, no palpable masses, no hepatomegaly Extremities: no cyanosis, no edema Hosp A/P (1) KASSIE (acute kidney injury) Code(s): N17.9 - ACUTE KIDNEY FAILURE, UNSPECIFIED Status: Acute (2) Autism Code(s): F84.0 - AUTISTIC DISORDER Status: Acute (3) Transaminitis Code(s): R74.01 - ELEVATION OF LEVELS OF LIVER TRANSAMINASE LEVELS Status: Acute (4) Diabetes mellitus type 2 in obese Code(s): E11.69 - TYPE 2 DIABETES MELLITUS WITH OTHER SPECIFIED COMPLICATION; E66.9 - OBESITY, UNSPECIFIED Status: Chronic (5) Hypertension Code(s): I10 - ESSENTIAL (PRIMARY) HYPERTENSION Status: Chronic (6) Hyponatremia Code(s): E87.1 - HYPO-OSMOLALITY AND HYPONATREMIA Status: Acute - Plan * Acute Kidney injury- continue to monitor his lab work until the end of the week, and re-assess * HTN- blood pressure is stable * DM- blood glucose is a bit elevated- continue to monitor and SSI * Hyponatremia- slightly improved continue to monitor * COVID infection- He is back off of supplemental oxygen- will continue to monitor
[2020-07-04] MEDS: Cefepime 1 GM in Sodium Chloride 0.9% 100 ML IVPB SCH (20:42)
[2020-07-05 05:15] LABS: Albumin 2.3 g/dL (3.5-5.0); Anion Gap 21 mmol/L (10-20); BUN (Urea Nitrogen) 111 mg/dL (8.4-25.7); BUN/Creatinine Ratio 12.57; Calc. Creatinine Clearance 13 mL/min (70-130); Calcium 7.2 mg/dL (7.8-10.44); Carbon Dioxide 26 mmol/L (22-29); Chloride 86 mmol/L (98-107); Glucose 99 mg/dL (70-105); Phosphorus 5.6 mg/dL (2.3-4.7); Potassium 4.2 mmol/L (3.5-5.1); Sodium 129 mmol/L (136-145)
[2020-07-05] MEDS: Sodium Bicarbonate Tab 325 MG TAB PO SCH ×3 (07:49→20:52)
[2020-07-05] MEDS: Ascorbic Acid 500 mg Chewable Tablet PO SCH (07:50)
[2020-07-05] MEDS: Thiamine 100 MG TAB PO SCH (07:50)
[2020-07-05] MEDS: Acetaminophen 325 MG TAB PO PRN (07:50)
[2020-07-05] MEDS: Dexamethasone 4 mg/ml Vial SLOW IVP SCH (07:50)
[2020-07-05] MEDS: Magnesium Oxide 400 MG TAB PO SCH (07:50)
[2020-07-05] MEDS: Zinc Sulfate 220 MG CAP PO SCH (07:51)
[2020-07-05] MEDS: Multivitamin W/ Minerals 1 TAB PO SCH (07:54)
[2020-07-05] MEDS: Folic Acid 1 MG TAB PO SCH (07:54)
[2020-07-05] MEDS ORDERED: Heparin 10,000 UNITS/ 10 ML VIAL ONE (09:46)
--- NOTE | 2020-07-05 11:21 | PDOC.NEPPN ---
- Subjective Encounter Date: 07/05/20 Subjective: Seen and examined. No new problem.Still making urine. - Objective Vital Signs & Weight: Vital Signs (12 hours) Temp Pulse Resp BP Pulse Ox 07/05/20 08:00 100 07/05/20 02:51 98.5 F 65 20 141/90 H 95 Weight Admit Weight 216 lb Weight 240 lb 15.444 oz I&O: 07/04/20 07/05/20 07/06/20 06:59 06:59 06:59 Intake Total 930 1296 Output Total 400 1825 Balance 530 -529 Result Diagrams: 07/04/20 05:13 07/05/20 04:20 Additional Labs: Accuchecks 07/04/20 07/04/20 20:39 16:05 POC Glucose 129 H 277 H Nephrology ROS - Medication Medications: Active Medications Generic Name Dose Route Start Last Admin Trade Name Freq PRN Reason Stop Dose Admin Acetaminophen 650 mg 06/28/20 12:23 07/05/20 07:50 Acetaminophen 325 Mg Tab PO 650 mg Q4H PRN Administration Headache/Fever or Pain Albuterol Sulfate 2 puff 06/27/20 23:06 07/04/20 16:59 Albuterol 200 Puff (6.7gm Inhaler) INH 2 puff [id number] PRN Administration Wheezing Ascorbic Acid 1,000 mg 06/28/20 09:00 07/05/20 07:50 Ascorbic Acid 500 Mg Chewable Tablet PO 1,000 mg DAILY WILLIAMS Administration Dexamethasone 6 mg 06/30/20 09:00 07/05/20 07:50 Dexamethasone 4 Mg/Ml Vial SLOW IVP 6 mg DAILY WILLIAMS Administration Folic Acid 1 mg 06/28/20 09:00 07/05/20 07:54 Folic Acid 1 Mg Tab PO 1 mg DAILY WILLIAMS Administration Cefepime HCl 1 gm/ Sodium 100 mls @ 200 mls/hr 07/01/20 21:00 07/04/20 20:42 Chloride IVPB 100 mls 2100 WILLIAMS Administration Insulin Human Lispro 0 units 06/27/20 18:39 07/04/20 16:24 Humalog 300 Units/3 Ml Vial SC 4 unit .MILD SLIDING SCALE PRN Administration Mild Correctional Scale Insulin Human Lispro 0 units 06/27/20 18:39 07/02/20 21:50 Humalog 300 Units/3 Ml Vial SC 2 unit .BEDTIME SLIDING SC PRN Administration Bedtime Correctional Scale Iron/Minerals/Multivitamins 1 tab 06/28/20 09:00 07/05/20 07:54 Multivitamin W/ Minerals 1 Tab PO 1 tab DAILY WILLIAMS Administration Magnesium Oxide 400 mg 06/28/20 09:00 07/05/20 07:50 Magnesium Oxide 400 Mg Tab PO 400 mg DAILY WILLIAMS Administration Sodium Bicarbonate 1,300 mg 06/29/20 09:00 07/05/20 07:49 Sodium Bicarbonate Tab 325 Mg Tab PO 1,300 mg TID WILLIAMS Administration Sodium Chloride 10 ml 06/27/20 16:43 07/04/20 08:24 Flush - Normal Saline 10 Ml Syringe IVF 10 ml PRN PRN Administration Saline Flush Thiamine HCl 100 mg 06/28/20 09:00 07/05/20 07:50 Thiamine 100 Mg Tab PO 100 mg DAILY WILLIAMS Administration Zinc Sulfate 220 mg 06/28/20 09:00 07/05/20 07:51 Zinc Sulfate 220 Mg Cap PO 220 mg DAILY WILLIAMS Administration - Exam General Appearance: awake alert Eye: anicteric sclera ENT: normocephalic atraumatic, moist mucosa Neck: supple, symmetric Respiratory - other findings: fair air entry bilaterally Cardiovascular: RRR Gastrointestinal: soft Gastrointestinal - other findings: duncan catheter noted Extremities: 1+ LE edema Neurological: CN's grossly intact, no focal deficits Musculoskeletal: generalized weakness PSYCH: oriented to person, oriented to place Nephrology Results - Labs Result Diagrams: 07/04/20 05:13 07/05/20 04:20 Lab results: WBC 13.9 thou/uL (4.8-10.8) H 07/04/20 05:13 Hgb 12.9 g/dL (14.0-18.0) L 07/04/20 05:13 Hct 40.2 % (42.0-52.0) L 07/04/20 05:13 MCV 87.4 fL (78.0-98.0) 07/04/20 05:13 Plt Count 224 thou/uL (130-400) 07/04/20 05:13 Neutrophils % 90.6 % (42.0-75.0) H 07/02/20 04:47 Band Neuts % (Manual) 2 % (5-11) L 07/04/20 05:13 Sodium 129 mmol/L (136-145) L 07/05/20 04:20 Potassium 4.2 mmol/L (3.5-5.1) 07/05/20 04:20 Chloride 86 mmol/L (98-107) L 07/05/20 04:20 Carbon Dioxide 26 mmol/L (22-29) 07/05/20 04:20 BUN 111 mg/dL (8.4-25.7) H 07/05/20 04:20 Creatinine 8.83 mg/dL (0.7-1.3) H 07/05/20 04:20 Glucose 99 mg/dL (70-105) 07/05/20 04:20 Lactic Acid 2.4 mmol/L (0.5-2.2) H 06/28/20 04:29 Calcium 7.2 mg/dL (7.8-10.44) L 07/05/20 04:20 Total Bilirubin 0.6 mg/dL (0.2-1.2) 07/01/20 05:50 AST 301 U/L (5-34) H 07/01/20 05:50 ALT 277 U/L (8-55) H 07/01/20 05:50 Alkaline Phosphatase 156 U/L (40-110) H 07/01/20 05:50 Ammonia 85 umol/L (18-72) H 06/27/20 17:15 Creatine Kinase 284 U/L (30-200) H 06/27/20 13:56 Troponin I 0.026 ng/mL (< 0.028) 06/27/20 13:56 C-Reactive Protein 16.83 mg/dL (= or < 0.5) H 06/28/20 04:29 B-Natriuretic Peptide Less than 10.0 pg/mL (0-100) 06/27/20 13:56 Serum Total Protein 6.5 g/dL (6.0-8.3) 07/01/20 05:50 Albumin 2.3 g/dL (3.5-5.0) L 07/05/20 04:20 Lipase 242 U/L (8-78) H 06/27/20 17:15 Urine Ketones Negative mg/dL (Negative) 06/27/20 18:15 Urine Ketones Trace mg/dL (Negative) A 06/27/20 18:15 Urine Blood 1+ (Negative) A 06/27/20 18:15 Urine Nitrite Negative (Negative) 06/27/20 18:15 Ur Leukocyte Esterase 75 Nadia/uL (Negative) A 06/27/20 18:15 Urine RBC 0-3 HPF (0-3) 06/27/20 18:15 Urine WBC 21-50 HPF (0-3) A 06/27/20 18:15 Ur Squamous Epith Cells 0-3 HPF (0-3) 06/27/20 18:15 Urine Bacteria 3+ HPF (None Seen) A 06/27/20 18:15 Sodium 129 mmol/L (136-145) L 07/05/20 04:20 Potassium 4.2 mmol/L (3.5-5.1) 07/05/20 04:20 Chloride 86 mmol/L (98-107) L 07/05/20 04:20 Carbon Dioxide 26 mmol/L (22-29) 07/05/20 04:20 Anion Gap 21 mmol/L (10-20) H 07/05/20 04:20 BUN 111 mg/dL (8.4-25.7) H 07/05/20 04:20 Creatinine 8.83 mg/dL (0.7-1.3) H 07/05/20 04:20 Glucose 99 mg/dL (70-105) 07/05/20 04:20 Calcium 7.2 mg/dL (7.8-10.44) L 07/05/20 04:20 Phosphorus 5.6 mg/dL (2.3-4.7) H 07/05/20 04:20 Magnesium 2.2 mg/dL (1.6-2.6) 06/29/20 04:38 Albumin 2.3 g/dL (3.5-5.0) L 07/05/20 04:20 Nephrology AP PN - Plan Acute renal failure: Most likely due to hemodynamic factors related to severe dehydration and acute infection. Initiated on HD 06/30/2020 due to worsening azotemia with Uremic encephalopathy. Last HD on 07/02/20. Creat is trending up despite making some urine. Uremic encephalopathy Metabolic acidosis Hyperkalemia: Resolved Severe dehydration: Improved Shock: due to hypovolemia and acute infection due to COVID. Resolved. Fever: New onset. Etiology unclear. ? related to Dialysis catheter Abnormal LFT: Due to dehydration and covid infection Hyponatremia: Due to severe volume depletion with appropriate ADH secretion. COVID infection. HX of HTN. Respiratory distress/Tachypnea: Most likely respiratory compensation to metabolic acidosis +/- Covid. Improving. Hx Autism. PLAN Will dialyze patient today with Uf as tolerated Monitor I/O and renal function for renal recovery. [place] oral intake advised. Waiting for isalation period to elapse before putting TDC Updated brother with care plan.
--- NOTE | 2020-07-05 11:23 | PDOC.BPN ---
- Brief Progress Note Encounter Date: 07/05/20 Seen during HD. BP 126/79. Complaining of cramps. Will continue HD with current setting except decreasing UF goals. ,onitor closely for hemodynamic instability. Will give albumin bolus for intradialytic hypotension.
--- NOTE | 2020-07-05 15:19 | PDOC.HOSPP ---
- Subjective Encounter Date: 07/05/20 Encounter Time: 15:17 Subjective: Mr. Kemp was seen today in follow-up of COVID infection and acute kidney injury. He does not have any complaints. His appetite has improved. - Objective Vital Signs & Weight: Vital Signs (12 hours) Temp Pulse Resp BP Pulse Ox 07/05/20 11:32 98 F 62 20 144/78 H 98 07/05/20 08:00 98.3 F 87 19 140/78 100 Weight Admit Weight 216 lb Weight 240 lb 15.444 oz I&O: 07/04/20 07/05/20 07/06/20 06:59 06:59 06:59 Intake Total 930 1296 Output Total 400 1825 Balance 530 -529 Result Diagrams: 07/04/20 05:13 07/05/20 04:20 Additional Labs: Accuchecks 07/05/20 07/04/20 07/04/20 11:30 20:39 16:05 POC Glucose 129 H 129 H 277 H Hospitalist ROS - Medication Medications: Active Medications Generic Name Dose Route Start Last Admin Trade Name Freq PRN Reason Stop Dose Admin Acetaminophen 650 mg 06/28/20 12:23 07/05/20 07:50 Acetaminophen 325 Mg Tab PO 650 mg Q4H PRN Administration Headache/Fever or Pain Albuterol Sulfate 2 puff 06/27/20 23:06 07/04/20 16:59 Albuterol 200 Puff (6.7gm Inhaler) INH 2 puff [id number] PRN Administration Wheezing Ascorbic Acid 1,000 mg 06/28/20 09:00 07/05/20 07:50 Ascorbic Acid 500 Mg Chewable Tablet PO 1,000 mg DAILY WILLIAMS Administration Dexamethasone 6 mg 06/30/20 09:00 07/05/20 07:50 Dexamethasone 4 Mg/Ml Vial SLOW IVP 6 mg DAILY WILLIAMS Administration Folic Acid 1 mg 06/28/20 09:00 07/05/20 07:54 Folic Acid 1 Mg Tab PO 1 mg DAILY WILLIAMS Administration Cefepime HCl 1 gm/ Sodium 100 mls @ 200 mls/hr 07/01/20 21:00 07/04/20 20:42 Chloride IVPB 100 mls 2100 WILLIAMS Administration Insulin Human Lispro 0 units 06/27/20 18:39 07/04/20 16:24 Humalog 300 Units/3 Ml Vial SC 4 unit .MILD SLIDING SCALE PRN Administration Mild Correctional Scale Insulin Human Lispro 0 units 06/27/20 18:39 07/02/20 21:50 Humalog 300 Units/3 Ml Vial SC 2 unit .BEDTIME SLIDING SC PRN Administration Bedtime Correctional Scale Iron/Minerals/Multivitamins 1 tab 06/28/20 09:00 07/05/20 07:54 Multivitamin W/ Minerals 1 Tab PO 1 tab DAILY WILLIAMS Administration Magnesium Oxide 400 mg 06/28/20 09:00 07/05/20 07:50 Magnesium Oxide 400 Mg Tab PO 400 mg DAILY WILLIAMS Administration Sodium Bicarbonate 1,300 mg 06/29/20 09:00 07/05/20 14:56 Sodium Bicarbonate Tab 325 Mg Tab PO 1,300 mg TID WILLIAMS Administration Sodium Chloride 10 ml 06/27/20 16:43 07/04/20 08:24 Flush - Normal Saline 10 Ml Syringe IVF 10 ml PRN PRN Administration Saline Flush Thiamine HCl 100 mg 06/28/20 09:00 07/05/20 07:50 Thiamine 100 Mg Tab PO 100 mg DAILY WILLIAMS Administration Zinc Sulfate 220 mg 06/28/20 09:00 07/05/20 07:51 Zinc Sulfate 220 Mg Cap PO 220 mg DAILY WILLIAMS Administration Hospitalist Exam Vitals: Vital Signs (12 hours) Temp Pulse Resp BP Pulse Ox 07/05/20 11:32 98 F 62 20 144/78 H 98 07/05/20 08:00 98.3 F 87 19 140/78 100 Weight Admit Weight 216 lb Weight 240 lb 15.444 oz General Appearance: NAD, awake alert Eye: PERRL, anicteric sclera Heart: RRR, no murmur, no gallops, no rubs, normal peripheral pulses Respiratory: CTAB, no wheezes, no rales, no ronchi, normal chest expansion Gastrointestinal: soft, non-tender, non-distended, normal bowel sounds, no palpable masses, no hepatomegaly Extremities: no cyanosis, 1+ LE edema Hosp A/P (1) KASSIE (acute kidney injury) Code(s): N17.9 - ACUTE KIDNEY FAILURE, UNSPECIFIED Status: Acute (2) Autism Code(s): F84.0 - AUTISTIC DISORDER Status: Acute (3) Transaminitis Code(s): R74.01 - ELEVATION OF LEVELS OF LIVER TRANSAMINASE LEVELS Status: Acute (4) Diabetes mellitus type 2 in obese Code(s): E11.69 - TYPE 2 DIABETES MELLITUS WITH OTHER SPECIFIED COMPLICATION; E66.9 - OBESITY, UNSPECIFIED Status: Chronic (5) Hypertension Code(s): I10 - ESSENTIAL (PRIMARY) HYPERTENSION Status: Chronic (6) Hyponatremia Code(s): E87.1 - HYPO-OSMOLALITY AND HYPONATREMIA Status: Acute - Plan * Acute Kidney injury-discussed with Dr. Conner- he will need dialysis, and likely [facility] continuous churn dialysis after discharge * HTN- blood pressure is stable * DM- blood glucose is a bit elevated- continue to monitor and SSI * Hyponatremia-due to advanced renal disease * COVID infection- it appears the major symptom is renal dysfunction- no respiratory symptoms. * Consider de-escalating antibiotics- or even discontinuing antibiotics
[2020-07-05] MEDS: Heparin 5,000 UNITS/ML VIAL SC SCH (20:52)
[2020-07-05] MEDS: Calcium Carbonate 500 MG ChewTAB PO PRN (21:58)
[2020-07-06 06:22] LABS: Albumin 2.3 g/dL (3.5-5.0); Anion Gap 17 mmol/L (10-20); BUN (Urea Nitrogen) 91 mg/dL (8.4-25.7); BUN/Creatinine Ratio 13.07; Calc. Creatinine Clearance 18 mL/min (70-130); Calcium 7.4 mg/dL (7.8-10.44); Carbon Dioxide 26 mmol/L (22-29); Chloride 90 mmol/L (98-107); Glucose 119 mg/dL (70-105); Phosphorus 4.8 mg/dL (2.3-4.7); Potassium 4.1 mmol/L (3.5-5.1); Sodium 129 mmol/L (136-145)
[2020-07-06] MEDS ORDERED: Vancomycin 1.5 GRAM/300 ML BAG 1.5 GM in Premix Bag 1 BAG IVPB SCH ×3 (06:30→07:30)
[2020-07-06] MEDS ORDERED: VANCOMYCIN 1.25 GM/250 ML BAG 1.25 GM in Premix Bag 1 BAG IVPB SCH (06:45)
[2020-07-06] MEDS ORDERED: Vancomycin HCl 750 MG in Sodium Chloride 0.9% 250 ML 250 ML IVPB SCH (06:45)
[2020-07-06] MEDS ORDERED: HOLD VANCOMYCIN FOR LEVEL >20 FS SCH (06:45)
[2020-07-06] MEDS ORDERED: Vancomycin 1 GM in Premix Bag 1 BAG IVPB SCH (06:45)
[2020-07-06] MEDS ORDERED: VANCOMYCIN 2 GRAM/400 ML BAG 2 GM in Premix Bag 1 BAG IVPB SCH (07:30)
[2020-07-06] MEDS: Albumin 25% 25 GM/100 ML BOT IVPB SCH ×3 (08:27→23:50)
[2020-07-06] MEDS: Zinc Sulfate 220 MG CAP PO SCH (08:28)
[2020-07-06] MEDS: Folic Acid 1 MG TAB PO SCH (08:28)
[2020-07-06] MEDS: Ascorbic Acid 500 mg Chewable Tablet PO SCH (08:28)
[2020-07-06] MEDS: Sodium Bicarbonate Tab 325 MG TAB PO SCH ×3 (08:28→19:56)
[2020-07-06] MEDS: Torsemide 20 MG TAB PO SCH (08:28)
[2020-07-06] MEDS: Dexamethasone 4 mg/ml Vial SLOW IVP SCH (08:29)
[2020-07-06] MEDS: Magnesium Oxide 400 MG TAB PO SCH (08:29)
[2020-07-06] MEDS: Heparin 5,000 UNITS/ML VIAL SC SCH ×2 (08:29→19:56)
[2020-07-06] MEDS: Multivitamin W/ Minerals 1 TAB PO SCH (08:29)
[2020-07-06] MEDS: Thiamine 100 MG TAB PO SCH (08:29)
[2020-07-06] MEDS: Calcium Carbonate 500 MG ChewTAB PO PRN (08:34)
[2020-07-06] MEDS ORDERED: Heparin 10,000 UNITS/ 10 ML VIAL ONE (09:47)
--- NOTE | 2020-07-06 13:27 | PDOC.NEPPN ---
- Subjective Encounter Date: 07/06/20 Subjective: Seen. No new problem. Afebrile in the last 48 hours since removal of right groin trialysis catheter. - Objective Vital Signs & Weight: Vital Signs (12 hours) Temp Pulse Resp BP Pulse Ox 07/06/20 11:20 98.4 F 90 18 163/89 H 95 07/06/20 08:00 98.6 F 77 20 159/79 H 92 L 07/06/20 03:40 99.0 F 72 18 148/85 H 93 L Weight Admit Weight 216 lb Weight 245 lb 13.047 oz I&O: 07/05/20 07/06/20 07/07/20 06:59 06:59 06:59 Intake Total 1296 758 Output Total 1825 1800 Balance -804 -8712 Result Diagrams: 07/04/20 05:13 07/06/20 05:45 Additional Labs: Accuchecks 07/06/20 07/06/20 07/05/20 11:26 05:19 21:01 POC Glucose 188 H 125 H 110 H 07/05/20 16:15 POC Glucose 130 H Nephrology ROS - Medication Medications: Active Medications Generic Name Dose Route Start Last Admin Trade Name Freq PRN Reason Stop Dose Admin Acetaminophen 650 mg 06/28/20 12:23 07/05/20 07:50 Acetaminophen 325 Mg Tab PO 650 mg Q4H PRN Administration Headache/Fever or Pain Albumin Human 25 gm 07/06/20 08:00 07/06/20 08:27 Albumin 25% 25 Gm/100 Ml Bot IVPB 07/07/20 02:01 25 gm 0200,0800,1400,2000 WILLIAMS Administration Albuterol Sulfate 2 puff 06/27/20 23:06 07/04/20 16:59 Albuterol 200 Puff (6.7gm Inhaler) INH 2 puff [id number] PRN Administration Wheezing Ascorbic Acid 1,000 mg 06/28/20 09:00 07/06/20 08:28 Ascorbic Acid 500 Mg Chewable Tablet PO 1,000 mg DAILY WILLIAMS Administration Calcium Carbonate 1,000 mg 07/05/20 21:20 07/06/20 08:34 Calcium Carbonate 500 Mg Chewtab PO 1,000 mg DAILYPRN PRN Administration Heartburn or Indigestion Dexamethasone 6 mg 06/30/20 09:00 07/06/20 08:29 Dexamethasone 4 Mg/Ml Vial SLOW IVP 6 mg DAILY WILLIAMS Administration Folic Acid 1 mg 06/28/20 09:00 07/06/20 08:28 Folic Acid 1 Mg Tab PO 1 mg DAILY WILLIAMS Administration Heparin Sodium (Porcine) 500 units 07/05/20 10:03 07/06/20 05:32 Heparin 500 Units/5 Ml Flush Syringe IV 500 unit PRN PRN Administration Heparin Flush Heparin Sodium (Porcine) 5,000 units 07/05/20 21:00 07/06/20 08:29 Heparin 5,000 Units/Ml Vial SC 5,000 units BID WILLIAMS Administration Insulin Human Lispro 0 units 06/27/20 18:39 07/04/20 16:24 Humalog 300 Units/3 Ml Vial SC 4 unit .MILD SLIDING SCALE PRN Administration Mild Correctional Scale Insulin Human Lispro 0 units 06/27/20 18:39 07/02/20 21:50 Humalog 300 Units/3 Ml Vial SC 2 unit .BEDTIME SLIDING SC PRN Administration Bedtime Correctional Scale Iron/Minerals/Multivitamins 1 tab 06/28/20 09:00 07/06/20 08:29 Multivitamin W/ Minerals 1 Tab PO 1 tab DAILY WILLIAMS Administration Magnesium Oxide 400 mg 06/28/20 09:00 07/06/20 08:29 Magnesium Oxide 400 Mg Tab PO 400 mg DAILY WILLIAMS Administration Sodium Bicarbonate 1,300 mg 06/29/20 09:00 07/06/20 08:28 Sodium Bicarbonate Tab 325 Mg Tab PO 1,300 mg TID WILLIAMS Administration Sodium Chloride 10 ml 06/27/20 16:43 07/04/20 08:24 Flush - Normal Saline 10 Ml Syringe IVF 10 ml PRN PRN Administration Saline Flush Thiamine HCl 100 mg 06/28/20 09:00 07/06/20 08:29 Thiamine 100 Mg Tab PO 100 mg DAILY WILLIAMS Administration Torsemide 40 mg 07/06/20 09:00 07/06/20 08:28 Torsemide 20 Mg Tab PO 40 mg DAILY WILLIAMS Administration Zinc Sulfate 220 mg 06/28/20 09:00 07/06/20 08:28 Zinc Sulfate 220 Mg Cap PO 220 mg DAILY WILLIAMS Administration - Exam General Appearance: awake alert Eye: anicteric sclera ENT: normocephalic atraumatic Neck: symmetric Respiratory - other findings: fair air entry bilaterally with some transmitted sound Cardiovascular: RRR Gastrointestinal: soft, normal bowel sounds Gastrointestinal - other findings: mild edema of the extremities. Mild edema/fullness of the left knee Neurological: CN's grossly intact, no focal deficits PSYCH: oriented to person, oriented to place Nephrology Results - Labs Result Diagrams: 07/04/20 05:13 07/06/20 05:45 Lab results: WBC 13.9 thou/uL (4.8-10.8) H 07/04/20 05:13 Hgb 12.9 g/dL (14.0-18.0) L 07/04/20 05:13 Hct 40.2 % (42.0-52.0) L 07/04/20 05:13 MCV 87.4 fL (78.0-98.0) 07/04/20 05:13 Plt Count 224 thou/uL (130-400) 07/04/20 05:13 Neutrophils % 90.6 % (42.0-75.0) H 07/02/20 04:47 Band Neuts % (Manual) 2 % (5-11) L 07/04/20 05:13 Sodium 129 mmol/L (136-145) L 07/06/20 05:45 Potassium 4.1 mmol/L (3.5-5.1) 07/06/20 05:45 Chloride 90 mmol/L (98-107) L 07/06/20 05:45 Carbon Dioxide 26 mmol/L (22-29) 07/06/20 05:45 BUN 91 mg/dL (8.4-25.7) H 07/06/20 05:45 Creatinine 6.96 mg/dL (0.7-1.3) H 07/06/20 05:45 Glucose 119 mg/dL (70-105) H 07/06/20 05:45 Lactic Acid 2.4 mmol/L (0.5-2.2) H 06/28/20 04:29 Calcium 7.4 mg/dL (7.8-10.44) L 07/06/20 05:45 Total Bilirubin 0.6 mg/dL (0.2-1.2) 07/01/20 05:50 AST 301 U/L (5-34) H 07/01/20 05:50 ALT 277 U/L (8-55) H 07/01/20 05:50 Alkaline Phosphatase 156 U/L (40-110) H 07/01/20 05:50 Ammonia 85 umol/L (18-72) H 06/27/20 17:15 Creatine Kinase 284 U/L (30-200) H 06/27/20 13:56 Troponin I 0.026 ng/mL (< 0.028) 06/27/20 13:56 C-Reactive Protein 16.83 mg/dL (= or < 0.5) H 06/28/20 04:29 B-Natriuretic Peptide Less than 10.0 pg/mL (0-100) 06/27/20 13:56 Serum Total Protein 6.5 g/dL (6.0-8.3) 07/01/20 05:50 Albumin 2.3 g/dL (3.5-5.0) L 07/06/20 05:45 Lipase 242 U/L (8-78) H 06/27/20 17:15 Urine Ketones Negative mg/dL (Negative) 06/27/20 18:15 Urine Ketones Trace mg/dL (Negative) A 06/27/20 18:15 Urine Blood 1+ (Negative) A 06/27/20 18:15 Urine Nitrite Negative (Negative) 06/27/20 18:15 Ur Leukocyte Esterase 75 Nadia/uL (Negative) A 06/27/20 18:15 Urine RBC 0-3 HPF (0-3) 06/27/20 18:15 Urine WBC 21-50 HPF (0-3) A 06/27/20 18:15 Ur Squamous Epith Cells 0-3 HPF (0-3) 06/27/20 18:15 Urine Bacteria 3+ HPF (None Seen) A 06/27/20 18:15 Sodium 129 mmol/L (136-145) L 07/06/20 05:45 Potassium 4.1 mmol/L (3.5-5.1) 07/06/20 05:45 Chloride 90 mmol/L (98-107) L 07/06/20 05:45 Carbon Dioxide 26 mmol/L (22-29) 07/06/20 05:45 Anion Gap 17 mmol/L (10-20) 07/06/20 05:45 BUN 91 mg/dL (8.4-25.7) H 07/06/20 05:45 Creatinine 6.96 mg/dL (0.7-1.3) H 07/06/20 05:45 Glucose 119 mg/dL (70-105) H 07/06/20 05:45 Calcium 7.4 mg/dL (7.8-10.44) L 07/06/20 05:45 Phosphorus 4.8 mg/dL (2.3-4.7) H 07/06/20 05:45 Magnesium 2.2 mg/dL (1.6-2.6) 06/29/20 04:38 Albumin 2.3 g/dL (3.5-5.0) L 07/06/20 05:45 Nephrology AP PN - Plan Acute renal failure: Most likely due to hemodynamic factors related to severe dehydration and acute infection. Initiated on HD 06/30/2020 due to worsening azotemia with Uremic encephalopathy. Last HD on 07/05/20. Azotemia is still elevated Edema: Fluid overload and hypoalbuminemia. Uremic encephalopathy. Improved. Metabolic acidosis Hyperkalemia: Resolved Severe dehydration: Resolved. Shock: due to hypovolemia and acute infection due to COVID. Resolved. Presumed catheter associated infection: Given intermittent fever and positive catheter tip culture positivity. Fever has subsided after removal of catheter. Abnormal LFT: Due to dehydration and covid infection Hyponatremia: Due to severe volume depletion with appropriate ADH secretion. COVID infection. HX of HTN. Hx Autism. PLAN Will start IV vancomycin in view of positive culture. Will also give albumin infusion to facilitate UF Will dialyze patient today with Uf as tolerated Gu[place]upe also start diuretic therapy Consult ID for recommendation in reference to planned TDC placment Monitor I/O and renal function for renal recovery.
--- NOTE | 2020-07-06 17:32 | PDOC.HOSPP ---
- Subjective Encounter Date: 07/06/20 Encounter Time: 16:00 Subjective: Patient seen and examined for acute renal failure requiring hemodialysis. Complains of some heartburn. Family at the bedside. No other overnight issues. - Objective Vital Signs & Weight: Vital Signs (12 hours) Temp Pulse Resp BP Pulse Ox 07/06/20 16:48 98.2 F 55 L 18 142/96 H 93 L 07/06/20 11:20 98.4 F 90 18 163/89 H 95 07/06/20 08:45 95 07/06/20 08:00 98.6 F 77 20 159/79 H 92 L Weight Admit Weight 216 lb Weight 245 lb 13.047 oz I&O: 07/05/20 07/06/20 07/07/20 06:59 06:59 06:59 Intake Total 1296 758 Output Total 1825 1800 350 Balance -529 -1042 -350 Result Diagrams: 07/04/20 05:13 07/06/20 05:45 Additional Labs: Accuchecks 07/06/20 07/06/20 07/05/20 11:26 05:19 21:01 POC Glucose 188 H 125 H 110 H Abnormal Lab Results - Last 48 hrs 07/05/20 04:20: Sodium 129 L, Chloride 86 L, Anion Gap 21 H, BUN 111 H, Creatinine 8.83 H, Calcium 7.2 L, Phosphorus 5.6 H, Albumin 2.3 L 07/05/20 08:38: 25-OH Vitamin D Total 7.5 L 07/06/20 05:45: Sodium 129 L, Chloride 90 L, BUN 91 H, Creatinine 6.96 H, Calcium 7.4 L, Phosphorus 4.8 H, Albumin 2.3 L Microbiology - Entire Visit 07/03/20 17:15 Catheter Tip Catheter Tip Culture - Final Presumptive Aileen albicans Coagulase Neg Staphylococcus Coagulase Neg Staphylococcus#2 07/02/20 05:54 Venous blood - Right Hand Blood Culture - Preliminary NO GROWTH AT 48 HOURS 06/27/20 14:21 Venous blood - Right Hand Blood Culture - Final NO GROWTH IN 5 DAYS 06/27/20 14:28 Venous blood - Left Hand Blood Culture - Final NO GROWTH IN 5 DAYS 06/27/20 18:15 Urine voided Urine Culture - Final NO GROWTH AT 36 HOURS Radiology Reviewed by me: Yes (Chest x-ray2/2COVID-19 pneumonia) Hospitalist ROS - Review of Systems Cardiovascular: denies: chest pain, palpitations, orthopnea, paroxysmal noc. dyspnea, edema, light headedness, other Gastrointestinal: denies: nausea, vomiting, abdominal pain, diarrhea, constipation, melena, hematochezia, other - Medication Medications: Active Medications Generic Name Dose Route Start Last Admin Trade Name Freq PRN Reason Stop Dose Admin Acetaminophen 650 mg 06/28/20 12:23 07/05/20 07:50 Acetaminophen 325 Mg Tab PO 650 mg Q4H PRN Administration Headache/Fever or Pain Albumin Human 25 gm 07/06/20 08:00 07/06/20 08:27 Albumin 25% 25 Gm/100 Ml Bot IVPB 07/07/20 02:01 25 gm 0200,0800,1400,2000 WILLIAMS Administration Albuterol Sulfate 2 puff 06/27/20 23:06 07/04/20 16:59 Albuterol 200 Puff (6.7gm Inhaler) INH 2 puff [id number] PRN Administration Wheezing Ascorbic Acid 1,000 mg 06/28/20 09:00 07/06/20 08:28 Ascorbic Acid 500 Mg Chewable Tablet PO 1,000 mg DAILY WILLIAMS Administration Calcium Carbonate 1,000 mg 07/05/20 21:20 07/06/20 08:34 Calcium Carbonate 500 Mg Chewtab PO 1,000 mg DAILYPRN PRN Administration Heartburn or Indigestion Dexamethasone 6 mg 06/30/20 09:00 07/06/20 08:29 Dexamethasone 4 Mg/Ml Vial SLOW IVP 6 mg DAILY WILLIAMS Administration Folic Acid 1 mg 06/28/20 09:00 07/06/20 08:28 Folic Acid 1 Mg Tab PO 1 mg DAILY WILLIAMS Administration Heparin Sodium (Porcine) 500 units 07/05/20 10:03 07/06/20 05:32 Heparin 500 Units/5 Ml Flush Syringe IV 500 unit PRN PRN Administration Heparin Flush Heparin Sodium (Porcine) 5,000 units 07/05/20 21:00 07/06/20 08:29 Heparin 5,000 Units/Ml Vial SC 5,000 units BID WILLIAMS Administration Insulin Human Lispro 0 units 06/27/20 18:39 07/04/20 16:24 Humalog 300 Units/3 Ml Vial SC 4 unit .MILD SLIDING SCALE PRN Administration Mild Correctional Scale Insulin Human Lispro 0 units 06/27/20 18:39 07/02/20 21:50 Humalog 300 Units/3 Ml Vial SC 2 unit .BEDTIME SLIDING SC PRN Administration Bedtime Correctional Scale Iron/Minerals/Multivitamins 1 tab 06/28/20 09:00 07/06/20 08:29 Multivitamin W/ Minerals 1 Tab PO 1 tab DAILY WILLIAMS Administration Magnesium Oxide 400 mg 06/28/20 09:00 07/06/20 08:29 Magnesium Oxide 400 Mg Tab PO 400 mg DAILY WILLIAMS Administration Sodium Bicarbonate 1,300 mg 06/29/20 09:00 07/06/20 16:52 Sodium Bicarbonate Tab 325 Mg Tab PO 1,300 mg TID WILLIAMS Administration Sodium Chloride 10 ml 06/27/20 16:43 07/04/20 08:24 Flush - Normal Saline 10 Ml Syringe IVF 10 ml PRN PRN Administration Saline Flush Thiamine HCl 100 mg 06/28/20 09:00 07/06/20 08:29 Thiamine 100 Mg Tab PO 100 mg DAILY WILLIAMS Administration Torsemide 40 mg 07/06/20 09:00 07/06/20 08:28 Torsemide 20 Mg Tab PO 40 mg DAILY WILLIAMS Administration Zinc Sulfate 220 mg 06/28/20 09:00 07/06/20 08:28 Zinc Sulfate 220 Mg Cap PO 220 mg DAILY WILLIAMS Administration Hospitalist Exam Vitals: Vital Signs (12 hours) Temp Pulse Resp BP Pulse Ox 07/06/20 16:48 98.2 F 55 L 18 142/96 H 93 L 07/06/20 11:20 98.4 F 90 18 163/89 H 95 07/06/20 08:45 95 07/06/20 08:00 98.6 F 77 20 159/79 H 92 L Weight Admit Weight 216 lb Weight 245 lb 13.047 oz General Appearance: awake alert Neck: supple, no JVD Heart: no gallops, no rubs Respiratory: no wheezes, rhonchi Gastrointestinal: soft, non-distended, no guarding, no rigidity Extremities: no cyanosis Neurological: no new deficit Musculoskeletal: generalized weakness Hosp A/P (1) KASSIE (acute kidney injury) Code(s): N17.9 - ACUTE KIDNEY FAILURE, UNSPECIFIED Status: Acute (2) Metabolic acidosis Code(s): E87.2 - ACIDOSIS Status: Acute (3) Obesity (BMI 30-39.9) Code(s): E66.9 - OBESITY, UNSPECIFIED Status: Acute (4) Pneumonia due to COVID-19 virus Code(s): U07.1 - COVID-19; J12.82 - PNEUMONIA DUE TO CORONAVIRUS DISEASE 2019 Status: Acute (5) Diabetes mellitus type 2 in obese Code(s): E11.69 - TYPE 2 DIABETES MELLITUS WITH OTHER SPECIFIED COMPLICATION; E66.9 - OBESITY, UNSPECIFIED Status: Chronic (6) Hypertension Code(s): I10 - ESSENTIAL (PRIMARY) HYPERTENSION Status: Chronic (7) Abnormal LFTs Code(s): R94.5 - ABNORMAL RESULTS OF LIVER FUNCTION STUDIES Status: Acute (8) Autism Code(s): F84.0 - AUTISTIC DISORDER Status: Acute (9) Other issues per previous notes - Plan DVT proph w/SCDs Continue supportive care. Continue hemodialysis per nephrology. Continue COVID-19 isolation. Continue empiric antibiotics. Continue steroids for COVID- 19 pneumonia. We will continue sodium bicarbonate. Recheck labs in a.m. CRP on 06/28 was 16.8. Will recheck in a.m. Patient also had abnormal LFTs which are downtrending.
[2020-07-06] MEDS: HumaLOG 300 UNITS/3 ML VIAL SC PRN (21:09)
[2020-07-07] MEDS: Albumin 25% 25 GM/100 ML BOT IVPB SCH (05:02)
[2020-07-07] MEDS: Calcium Carbonate 500 MG ChewTAB PO PRN ×3 (05:02→23:54)
[2020-07-07 05:47] LABS: Albumin 2.9 g/dL (3.5-5.0); Anion Gap 15 mmol/L (10-20); BUN (Urea Nitrogen) 68 mg/dL (8.4-25.7); BUN/Creatinine Ratio 12.76; Calc. Creatinine Clearance 24 mL/min (70-130); Calcium 7.6 mg/dL (7.8-10.44); Carbon Dioxide 27 mmol/L (22-29); Chloride 91 mmol/L (98-107); Glucose 94 mg/dL (70-105); Phosphorus 4.6 mg/dL (2.3-4.7); Sodium 129 mmol/L (136-145)
[2020-07-07] MEDS: Sodium Bicarbonate Tab 325 MG TAB PO SCH ×3 (10:05→21:07)
[2020-07-07] MEDS: Magnesium Oxide 400 MG TAB PO SCH (10:05)
[2020-07-07] MEDS: Folic Acid 1 MG TAB PO SCH (10:05)
[2020-07-07] MEDS: Torsemide 20 MG TAB PO SCH (10:06)
[2020-07-07] MEDS: Multivitamin W/ Minerals 1 TAB PO SCH (10:06)
[2020-07-07] MEDS: Thiamine 100 MG TAB PO SCH (10:06)
[2020-07-07] MEDS: Zinc Sulfate 220 MG CAP PO SCH (10:06)
[2020-07-07] MEDS: Ascorbic Acid 500 mg Chewable Tablet PO SCH (10:06)
[2020-07-07] MEDS: Heparin 5,000 UNITS/ML VIAL SC SCH ×2 (10:07→21:08)
[2020-07-07] MEDS: Dexamethasone 4 mg/ml Vial SLOW IVP SCH (10:10)
--- NOTE | 2020-07-07 11:34 | PDOC.NEPPN ---
- Subjective Encounter Date: 07/07/20 Subjective: Seen. No new problem. urine output is increasing with diuretic Subjective: non-verbal - Objective Vital Signs & Weight: Vital Signs (12 hours) Temp Pulse Resp BP Pulse Ox 07/07/20 10:20 98.4 F 69 28 H 143/83 H 95 07/07/20 04:00 96.8 F L 62 15 160/80 H 94 L 07/07/20 00:00 98.0 F 65 22 H 169/86 H 95 Weight Admit Weight 216 lb Weight 256 lb 13.416 oz I&O: 07/06/20 07/07/20 07/08/20 06:59 06:59 06:59 Intake Total 758 2200 Output Total 1800 1550 Balance -1042 650 Result Diagrams: 07/04/20 05:13 07/07/20 04:58 Additional Labs: Accuchecks 07/07/20 07/06/20 07/06/20 05:07 21:07 11:26 POC Glucose 102 H 273 H 188 H Nephrology ROS - Medication Medications: Active Medications Generic Name Dose Route Start Last Admin Trade Name Freq PRN Reason Stop Dose Admin Acetaminophen 650 mg 06/28/20 12:23 07/05/20 07:50 Acetaminophen 325 Mg Tab PO 650 mg Q4H PRN Administration Headache/Fever or Pain Albuterol Sulfate 2 puff 06/27/20 23:06 07/04/20 16:59 Albuterol 200 Puff (6.7gm Inhaler) INH 2 puff [id number] PRN Administration Wheezing Ascorbic Acid 1,000 mg 06/28/20 09:00 07/07/20 10:06 Ascorbic Acid 500 Mg Chewable Tablet PO 1,000 mg DAILY WILLIAMS Administration Calcium Carbonate 1,000 mg 07/06/20 17:35 07/07/20 05:02 Calcium Carbonate 500 Mg Chewtab PO 1,000 mg Q4H PRN Administration Heartburn or Indigestion Dexamethasone 6 mg 06/30/20 09:00 07/07/20 10:10 Dexamethasone 4 Mg/Ml Vial SLOW IVP 6 mg DAILY WILLIAMS Administration Folic Acid 1 mg 06/28/20 09:00 07/07/20 10:05 Folic Acid 1 Mg Tab PO 1 mg DAILY WILLIAMS Administration Heparin Sodium (Porcine) 500 units 07/05/20 10:03 07/07/20 01:29 Heparin 500 Units/5 Ml Flush Syringe IV 500 unit PRN PRN Administration Heparin Flush Heparin Sodium (Porcine) 5,000 units 07/05/20 21:00 07/07/20 10:07 Heparin 5,000 Units/Ml Vial SC 5,000 units BID WILLIAMS Administration Insulin Human Lispro 0 units 06/27/20 18:39 07/04/20 16:24 Humalog 300 Units/3 Ml Vial SC 4 unit .MILD SLIDING SCALE PRN Administration Mild Correctional Scale Insulin Human Lispro 0 units 06/27/20 18:39 07/06/20 21:09 Humalog 300 Units/3 Ml Vial SC 3 unit .BEDTIME SLIDING SC PRN Administration Bedtime Correctional Scale Iron/Minerals/Multivitamins 1 tab 06/28/20 09:00 07/07/20 10:06 Multivitamin W/ Minerals 1 Tab PO 1 tab DAILY WILLIAMS Administration Magnesium Oxide 400 mg 06/28/20 09:00 07/07/20 10:05 Magnesium Oxide 400 Mg Tab PO 400 mg DAILY WILLIAMS Administration Sodium Bicarbonate 1,300 mg 06/29/20 09:00 07/07/20 10:05 Sodium Bicarbonate Tab 325 Mg Tab PO 1,300 mg TID WILLIAMS Administration Sodium Chloride 10 ml 06/27/20 16:43 07/04/20 08:24 Flush - Normal Saline 10 Ml Syringe IVF 10 ml PRN PRN Administration Saline Flush Thiamine HCl 100 mg 06/28/20 09:00 07/07/20 10:06 Thiamine 100 Mg Tab PO 100 mg DAILY WILLIAMS Administration Torsemide 40 mg 07/06/20 09:00 07/07/20 10:06 Torsemide 20 Mg Tab PO 40 mg DAILY WILLIAMS Administration Zinc Sulfate 220 mg 06/28/20 09:00 07/07/20 10:06 Zinc Sulfate 220 Mg Cap PO 220 mg DAILY WILLIAMS Administration - Exam General Appearance: awake alert Eye: anicteric sclera ENT: normocephalic atraumatic, moist mucosa Neck: symmetric, no JVD Respiratory - other findings: fair air entry with some scattered transmitted sound Cardiovascular: RRR Gastrointestinal: soft, non-tender, normal bowel sounds Extremities - other findings: travce bilateral leg edema Neurological: CN's grossly intact Musculoskeletal: generalized weakness PSYCH: oriented to person, oriented to place Psychiatric - other findings: decreased cognitive ability Nephrology Results - Labs Result Diagrams: 07/04/20 05:13 07/07/20 04:58 Lab results: WBC 13.9 thou/uL (4.8-10.8) H 07/04/20 05:13 Hgb 12.9 g/dL (14.0-18.0) L 07/04/20 05:13 Hct 40.2 % (42.0-52.0) L 07/04/20 05:13 MCV 87.4 fL (78.0-98.0) 07/04/20 05:13 Plt Count 224 thou/uL (130-400) 07/04/20 05:13 Neutrophils % 90.6 % (42.0-75.0) H 07/02/20 04:47 Band Neuts % (Manual) 2 % (5-11) L 07/04/20 05:13 Sodium 129 mmol/L (136-145) L 07/07/20 04:58 Potassium 4.0 mmol/L (3.5-5.1) 07/07/20 04:58 Chloride 91 mmol/L (98-107) L 07/07/20 04:58 Carbon Dioxide 27 mmol/L (22-29) 07/07/20 04:58 BUN 68 mg/dL (8.4-25.7) H 07/07/20 04:58 Creatinine 5.33 mg/dL (0.7-1.3) H 07/07/20 04:58 Glucose 94 mg/dL (70-105) 07/07/20 04:58 Lactic Acid 2.4 mmol/L (0.5-2.2) H 06/28/20 04:29 Calcium 7.6 mg/dL (7.8-10.44) L 07/07/20 04:58 Total Bilirubin 0.6 mg/dL (0.2-1.2) 07/01/20 05:50 AST 301 U/L (5-34) H 07/01/20 05:50 ALT 277 U/L (8-55) H 07/01/20 05:50 Alkaline Phosphatase 156 U/L (40-110) H 07/01/20 05:50 Ammonia 85 umol/L (18-72) H 06/27/20 17:15 Creatine Kinase 284 U/L (30-200) H 06/27/20 13:56 Troponin I 0.026 ng/mL (< 0.028) 06/27/20 13:56 C-Reactive Protein 16.83 mg/dL (= or < 0.5) H 06/28/20 04:29 B-Natriuretic Peptide Less than 10.0 pg/mL (0-100) 06/27/20 13:56 Serum Total Protein 6.5 g/dL (6.0-8.3) 07/01/20 05:50 Albumin 2.9 g/dL (3.5-5.0) L 07/07/20 04:58 Lipase 242 U/L (8-78) H 06/27/20 17:15 Urine Ketones Negative mg/dL (Negative) 06/27/20 18:15 Urine Ketones Trace mg/dL (Negative) A 06/27/20 18:15 Urine Blood 1+ (Negative) A 06/27/20 18:15 Urine Nitrite Negative (Negative) 06/27/20 18:15 Ur Leukocyte Esterase 75 Nadia/uL (Negative) A 06/27/20 18:15 Urine RBC 0-3 HPF (0-3) 06/27/20 18:15 Urine WBC 21-50 HPF (0-3) A 06/27/20 18:15 Ur Squamous Epith Cells 0-3 HPF (0-3) 06/27/20 18:15 Urine Bacteria 3+ HPF (None Seen) A 06/27/20 18:15 Sodium 129 mmol/L (136-145) L 07/07/20 04:58 Potassium 4.0 mmol/L (3.5-5.1) 07/07/20 04:58 Chloride 91 mmol/L (98-107) L 07/07/20 04:58 Carbon Dioxide 27 mmol/L (22-29) 07/07/20 04:58 Anion Gap 15 mmol/L (10-20) 07/07/20 04:58 BUN 68 mg/dL (8.4-25.7) H 07/07/20 04:58 Creatinine 5.33 mg/dL (0.7-1.3) H 07/07/20 04:58 Glucose 94 mg/dL (70-105) 07/07/20 04:58 Calcium 7.6 mg/dL (7.8-10.44) L 07/07/20 04:58 Phosphorus 4.6 mg/dL (2.3-4.7) 07/07/20 04:58 Magnesium 2.2 mg/dL (1.6-2.6) 06/29/20 04:38 Albumin 2.9 g/dL (3.5-5.0) L 07/07/20 04:58 Nephrology AP PN - Plan Acute renal failure: Most likely due to hemodynamic factors related to severe dehydration and acute infection. Initiated on HD 06/30/2020 due to worsening azotemia with Uremic encephalopathy. Last HD on 07/06/20. Edema: Fluid overload and hypoalbuminemia. improving Uremic encephalopathy. Improved. Metabolic acidosis Hyperkalemia: Resolved Severe dehydration: Resolved. Shock: due to hypovolemia and acute infection due to COVID. Resolved. Presumed catheter associated infection: Given intermittent fever and positive catheter tip culture positivity. Fever has subsided after removal of catheter. Abnormal LFT: Due to dehydration and covid infection Hyponatremia: Due to severe volume depletion with appropriate ADH secretion. COVID infection. HX of HTN. Hx Autism. PLAN Start protonix for presumed herat burn. Get repeat CXR Will get TDC once off isolation for covid. Patient is already 12 days since diagnosis and has ran a very mild course. Continue IV vancomycin in view of positive culture. Continue diuretic therapy Awaiting ID for recommendation in reference to planned TDC placment and positive catheter tip culture Monitor I/O and renal function for renal recovery.
[2020-07-07] MEDS: HumaLOG 300 UNITS/3 ML VIAL SC PRN ×2 (12:34→17:18)
[2020-07-07 13:10] LABS: Vancomycin, Trough 16.6 ug/mL
--- NOTE | 2020-07-07 13:58 | RAD ---
PORTABLE CHEST 1 VIEW: Date: 07/07/2020 Time: 1157 hours HISTORY: Fever, infiltrates, shortness of breath. FINDINGS: Comparison made to exam of 07/02/2020. The heart size is stable. The aorta is tortuous. There is interval worsening of multifocal bilateral infiltrates since the comparison study. No pneumothoraces or pleural effusions are seen. IMPRESSION: Worsening pneumonia since 07/02/2020. POS: OFF
--- NOTE | 2020-07-07 14:00 | PDOC.HOSPP ---
- Subjective Encounter Date: 07/07/20 Encounter Time: 13:00 Subjective: Patient seen and examined for acute kidney injury with COVID-19 pneumonia. No overnight events. Denies any chest pain or shortness of breath at rest - Objective Vital Signs & Weight: Vital Signs (12 hours) Temp Pulse Resp BP Pulse Ox 07/07/20 12:10 98.2 F 76 24 H 146/74 H 96 07/07/20 10:20 98.4 F 69 28 H 143/83 H 95 07/07/20 04:00 96.8 F L 62 15 160/80 H 94 L Weight Admit Weight 216 lb Weight 256 lb 13.416 oz I&O: 07/06/20 07/07/20 07/08/20 06:59 06:59 06:59 Intake Total 758 2200 Output Total 1800 1550 Balance -1042 650 Result Diagrams: 07/04/20 05:13 07/07/20 04:58 Additional Labs: Accuchecks 07/07/20 07/07/20 07/06/20 12:10 05:07 21:07 POC Glucose 181 H 102 H 273 H Abnormal Lab Results - Last 48 hrs 07/06/20 05:45: Sodium 129 L, Chloride 90 L, BUN 91 H, Creatinine 6.96 H, Calci um 7.4 L, Phosphorus 4.8 H, Albumin 2.3 L 07/07/20 04:58: Sodium 129 L, Chloride 91 L, BUN 68 H, Creatinine 5.33 H, Calcium 7.6 L, Albumin 2.9 L Microbiology - Entire Visit 07/02/20 05:54 Venous blood - Right Hand Blood Culture - Final NO GROWTH IN 5 DAYS 07/03/20 17:15 Catheter Tip Catheter Tip Culture - Final Presumptive Aileen albicans Coagulase Neg Staphylococcus Coagulase Neg Staphylococcus#2 06/27/20 14:21 Venous blood - Right Hand Blood Culture - Final NO GROWTH IN 5 DAYS 06/27/20 14:28 Venous blood - Left Hand Blood Culture - Final NO GROWTH IN 5 DAYS 06/27/20 18:15 Urine voided Urine Culture - Final NO GROWTH AT 36 HOURS Radiology Reviewed by me: Yes (Chest x-raybilateral infiltrates - worsening) EKG Reviewed by me: Yes (Sinus rhythm on telemetry) Hospitalist ROS - Review of Systems Cardiovascular: denies: chest pain, palpitations, orthopnea, paroxysmal noc. dyspnea, edema, light headedness, other Gastrointestinal: denies: nausea, vomiting, abdominal pain, diarrhea, constipation, melena, hematochezia, other - Medication Medications: Active Medications Generic Name Dose Route Start Last Admin Trade Name Freq PRN Reason Stop Dose Admin Acetaminophen 650 mg 06/28/20 12:23 07/05/20 07:50 Acetaminophen 325 Mg Tab PO 650 mg Q4H PRN Administration Headache/Fever or Pain Albuterol Sulfate 2 puff 06/27/20 23:06 07/04/20 16:59 Albuterol 200 Puff (6.7gm Inhaler) INH 2 puff [id number] PRN Administration Wheezing Ascorbic Acid 1,000 mg 06/28/20 09:00 07/07/20 10:06 Ascorbic Acid 500 Mg Chewable Tablet PO 1,000 mg DAILY WILLIAMS Administration Calcium Carbonate 1,000 mg 07/06/20 17:35 07/07/20 05:02 Calcium Carbonate 500 Mg Chewtab PO 1,000 mg Q4H PRN Administration Heartburn or Indigestion Dexamethasone 6 mg 06/30/20 09:00 07/07/20 10:10 Dexamethasone 4 Mg/Ml Vial SLOW IVP 6 mg DAILY WILLIAMS Administration Folic Acid 1 mg 06/28/20 09:00 07/07/20 10:05 Folic Acid 1 Mg Tab PO 1 mg DAILY WILLIAMS Administration Heparin Sodium (Porcine) 500 units 07/05/20 10:03 07/07/20 01:29 Heparin 500 Units/5 Ml Flush Syringe IV 500 unit PRN PRN Administration Heparin Flush Heparin Sodium (Porcine) 5,000 units 07/05/20 21:00 07/07/20 10:07 Heparin 5,000 Units/Ml Vial SC 5,000 units BID WILLIAMS Administration Insulin Human Lispro 0 units 06/27/20 18:39 07/07/20 12:34 Humalog 300 Units/3 Ml Vial SC 2 unit .MILD SLIDING SCALE PRN Administration Mild Correctional Scale Insulin Human Lispro 0 units 06/27/20 18:39 07/06/20 21:09 Humalog 300 Units/3 Ml Vial SC 3 unit .BEDTIME SLIDING SC PRN Administration Bedtime Correctional Scale Iron/Minerals/Multivitamins 1 tab 06/28/20 09:00 07/07/20 10:06 Multivitamin W/ Minerals 1 Tab PO 1 tab DAILY WILLIAMS Administration Magnesium Oxide 400 mg 06/28/20 09:00 07/07/20 10:05 Magnesium Oxide 400 Mg Tab PO 400 mg DAILY WILLIAMS Administration Pantoprazole Sodium 40 mg 07/07/20 12:00 07/07/20 12:34 Pantoprazole 40 Mg Tab PO 07/07/20 14:00 40 mg NOW WILLIAMS Administration Sodium Bicarbonate 1,300 mg 06/29/20 09:00 07/07/20 10:05 Sodium Bicarbonate Tab 325 Mg Tab PO 1,300 mg TID WILILAMS Administration Sodium Chloride 10 ml 06/27/20 16:43 07/04/20 08:24 Flush - Normal Saline 10 Ml Syringe IVF 10 ml PRN PRN Administration Saline Flush Thiamine HCl 100 mg 06/28/20 09:00 07/07/20 10:06 Thiamine 100 Mg Tab PO 100 mg DAILY WILLIAMS Administration Torsemide 40 mg 07/06/20 09:00 07/07/20 10:06 Torsemide 20 Mg Tab PO 40 mg DAILY WILLIAMS Administration Zinc Sulfate 220 mg 06/28/20 09:00 07/07/20 10:06 Zinc Sulfate 220 Mg Cap PO 220 mg DAILY WILLIAMS Administration Hospitalist Exam Vitals: Vital Signs (12 hours) Temp Pulse Resp BP Pulse Ox 07/07/20 12:10 98.2 F 76 24 H 146/74 H 96 07/07/20 10:20 98.4 F 69 28 H 143/83 H 95 07/07/20 04:00 96.8 F L 62 15 160/80 H 94 L Weight Admit Weight 216 lb Weight 256 lb 13.416 oz General Appearance: awake alert Neck: supple, no JVD Heart: RRR, no gallops Respiratory: rales, rhonchi Gastrointestinal: soft, non-distended, normal bowel sounds Extremities: no cyanosis Hosp A/P (1) KASSIE (acute kidney injury) Code(s): N17.9 - ACUTE KIDNEY FAILURE, UNSPECIFIED Status: Acute (2) Acute respiratory failure with hypoxia Code(s): J96.01 - ACUTE RESPIRATORY FAILURE WITH HYPOXIA Status: Acute (3) Metabolic acidosis Code(s): E87.2 - ACIDOSIS Status: Acute (4) Obesity (BMI 30-39.9) Code(s): E66.9 - OBESITY, UNSPECIFIED Status: Acute (5) Pneumonia due to COVID-19 virus Code(s): U07.1 - COVID-19; J12.82 - PNEUMONIA DUE TO CORONAVIRUS DISEASE 2019 Status: Acute (6) Diabetes mellitus type 2 in obese Code(s): E11.69 - TYPE 2 DIABETES MELLITUS WITH OTHER SPECIFIED COMPLICATION; E66.9 - OBESITY, UNSPECIFIED Status: Chronic (7) Hypertension Code(s): I10 - ESSENTIAL (PRIMARY) HYPERTENSION Status: Chronic (8) Abnormal LFTs Code(s): R94.5 - ABNORMAL RESULTS OF LIVER FUNCTION STUDIES Status: Acute (9) Autism Code(s): F84.0 - AUTISTIC DISORDER Status: Acute (10) Other issues per previous notes - Plan 59-year-old male with autism, diabetes mellitus type 2 and hypertension presented on 06/27 with generalized weakness and lethargy. His work-up was consistent with acute renal failure with creatinine of 9.47 and potassium of 5.5 on admission with COVID-19 pneumonia, abnormal LFTs and WBC of 12.1 with left shift. He was placed on O2 supplementation. He was evaluated by nephrology and has been started on hemodialysis with right groin hemodialysis catheter which later became nonfunctional requiring replacement. Plan: Continue supportive care. Blood culture remain negative. Continue hemodialysis per nephrology. Will discuss with infectious disease when isolation can be discontinued for dialysis catheter placement. Patient will also need outpatient dialysis set up. We will continue dexamethasone. Continue heparin for DVT pro phylaxis. Continue GI prophylaxis. Continue torsemide and sodium bicarbonate per nephrology. Continue bronchodilators. A.m. labs. Chest x-ray showed worsening. Monitor closely for decompensation.
[2020-07-07] MEDS ORDERED: Torsemide 20 MG TAB PO SCH (17:00)
--- NOTE | 2020-07-07 17:49 | CON ---
DATE OF CONSULTATION: 07/07/2020 HISTORY OF PRESENT ILLNESS: Evaluate and recommend management for findings from catheter-tip culture. A 59-year-old, who has a developmental disability and mental retardation and has also type 2 diabetes and hypertension and developed dyspnea 4 days before admission, not clear if this duration of symptom is accurately determined. Nonetheless, whenever he would lay down, it would make it worse. Did not have any fever or cough. No chest pain and initial findings included pulse 85, BP 82/49, temperature 98, and O2 saturation 94 on 4 L nasal cannula O2. Exam initially showed no jugular vein distention. Lungs with clear breath sounds. Heart exam was described as normal. Abdomen described as normal. There was evidence of a swollen left upper extremity. Other findings, urinalysis with 100 protein and 21 to 50 wbc's. White cell count 12.1, hemoglobin 17, platelets 393, and 89% neutrophils. SARS-CoV-2 PCR from admission was detected. Hepatitis and HIV serology negative. HAO screen was negative. So initial evaluation also included an abdomen and pelvis CT and imaging demonstrated patchy ground-glass infiltrates. No abdominal process identified. The patient had a renal ultrasound, which was not remarkable. The initial creatinine was 9.47. Consultation with Nephrology was obtained. Dr. Conner evaluated the patient, his assessment was acute renal failure probably hemodynamic factors, severe volume depletion, contribution from SARS-CoV possible. The patient was given IV fluids, bicarbonate and urine drug screen is negative. He had a catheter inserted by Dr. Ramesh on June 30 for dialysis, it became dysfunctional and another catheter had been placed in the contralateral groin. The tip was sent for cultures and we have positive cultures from the tip and we were asked to evaluate that finding and recommend management. Currently, Mr. Kemp is awake. His brother is in the room to help, calm him down. He denies any headaches. No shortness of breath anymore. Sometimes he has chest pain, not clear what the nature of that is, it is difficult to get a thorough history from him. He does not have any abdominal pain and he has a Alfred catheter in place and a triple-lumen in the left groin. PAST MEDICAL HISTORY: Mental retardation, type 2 diabetes, and hypertension. PAST SURGICAL HISTORY: Negative. SOCIAL HISTORY: Lives with mother. Drinks apparently daily according to the note. Never smoker. No drug use. ALLERGIES: NONE. MEDICATIONS LIST: 1. Vitamin C. 2. Decadron. 3. Vancomycin. 4. Sliding scale. 5. Thiamine. 6. Zinc. FAMILY HISTORY: SARS-COV-2 in the mother. PHYSICAL EXAMINATION: VITAL SIGNS: Here in the hospital, he had a temperature of 103 on July 03 and then 101 on July 04 and after that, he has remained afebrile. BP 140/74, heart rate 76, respirations 15 to 24, and O2 saturation 96, the lowest O2 saturation was 93 and he had been on nasal cannula O2 on admission, but that has been discontinued. SKIN: Not remarkable. No lymphadenopathy. HEENT: Ocular movements conjugate. Few missing teeth. NECK: No jugular vein distention. LUNGS: With quite clear breath sounds right and left side. HEART: S1 and S2. Regular rate. No S3 or S4. ABDOMEN: Soft, not distended or tender. No ascites. No bladder distention. Groin catheter in the left side. Alfred catheter. EXTREMITIES: No joint inflammatory activity. He is able to move all 4 extremities. No edema. Plantar responses are flexor. NEUROLOGIC: He is awake. He has significant paraphasic errors on speech and he is very limited in the vocabulary and some element of confabulation as well. LABORATORY DATA: The catheter tip cultures from July 03 with Aileen albicans, two different types of coagulase-negative staphylococci. A blood culture obtained at the same time from the hand was no growth in 5 days. Previous blood cultures from the 28, no growth as well. Chest x-ray repeated today with pneumonia. ASSESSMENT AND PLAN: Mental retardation, type 2 diabetes, hypertension, moderate SARS-CoV-2 infection with pneumonia, and associated acute renal failure. The record of his creatinine here shows a baseline of 1.24 on May 28 and actually 1.09 in November 2019. So, this is an acute onset and hopefully will be reversible and he might have association with the COVID-19 episode. He may have set in motion a series of events that led to volume depletion plus the infection itself with acute renal failure. Typically, acute renal failure in COVID patients occurs in the setting of severe COVID and the patient is admitted to the intensive care unit about 20% will develop acute renal failure. So, but in his case, it is little bit different scenario. The organisms from the catheter appear to be colonizers of that site, but not true pathogens in the sense that he was not proven to have bacteremia, so go ahead and discontinue antimicrobial therapy right now and monitor him his clinical course. May need to have repeat blood culture submitted. Job ID: [id number] MTDD
[2020-07-08 00:50] LABS: Bacteria/HPF None Seen HPF (None Seen); Bilirubin Negative (Negative); Blood, Urine 3+ (Negative); Clarity Clear (Clear); Glucose, Urine (Dipstick) Normal (Negative); Ketone, Urine Negative (Negative); Leukocyte Negative Leu/uL (Negative); Nitrite Negative (Negative); Protein, Urine (Dipstick) 70 mg/dL (Neg-Trace); RBC/HPF 0-3 HPF (0-3); Specific Gravity, Urine 1.005 (1.002-1.036); Squamous Epithelial None Seen HPF (0-3); Urobilinogen Normal mg/dL (Less than 2); WBC/HPF 0-3 HPF (0-3)
[2020-07-08 00:52] LABS: Urine Culture Reflex No No
[2020-07-08] MEDS: Calcium Carbonate 500 MG ChewTAB PO PRN (04:48)
[2020-07-08 07:04] LABS: Hemoglobin 11.4 g/dL (14.0-18.0); Mean Corpuscular HGB CONC 32.6 g/dL (32.0-36.0); Mean Corpuscular Hemoglobin 28.3 pg (27.0-31.0); Mean Corpuscular Volume 86.7 fL (78.0-98.0); Mean Platelet Volume 8.3 fL (7.4-10.4); Platelet Count 194 thou/uL (130-400); RBC Distribution Width 12.8 % (11.5-14.5); Red Blood Cell (RBC) Count 4.05 mill/uL (4.70-6.10); White Blood Cell (WBC) Count 13.1 thou/uL (4.8-10.8)
[2020-07-08 07:11] LABS: Anion Gap 19 mmol/L (10-20); BUN (Urea Nitrogen) 93 mg/dL (8.4-25.7); Calc. Creatinine Clearance 23 mL/min (70-130); Calcium 7.2 mg/dL (7.8-10.44); Carbon Dioxide 22 mmol/L (22-29); Chloride 87 mmol/L (98-107); Glucose 94 mg/dL (70-105); Potassium 4.3 mmol/L (3.5-5.1); Sodium 124 mmol/L (136-145)
[2020-07-08] MEDS ORDERED: Ergocalciferol 1.25 MG(50,000 UNITS) CAP PO SCH (09:00)
[2020-07-08] MEDS: Calcium Carbonate 500 MG ChewTAB PO SCH ×3 (09:00→20:30)
[2020-07-08] MEDS: Folic Acid 1 MG TAB PO SCH (09:00)
[2020-07-08] MEDS: Sodium Bicarbonate Tab 325 MG TAB PO SCH ×3 (09:00→20:32)
[2020-07-08] MEDS: Ascorbic Acid 500 mg Chewable Tablet PO SCH (09:00)
[2020-07-08] MEDS: Zinc Sulfate 220 MG CAP PO SCH (09:00)
[2020-07-08] MEDS: Thiamine 100 MG TAB PO SCH (09:01)
[2020-07-08] MEDS: Multivitamin W/ Minerals 1 TAB PO SCH (09:01)
[2020-07-08] MEDS: Dexamethasone 4 mg/ml Vial SLOW IVP SCH (09:01)
[2020-07-08] MEDS: Torsemide 100 MG TAB PO SCH (09:01)
[2020-07-08] MEDS: Heparin 5,000 UNITS/ML VIAL SC SCH ×2 (09:03→20:30)
[2020-07-08] MEDS: hydrALAZINE 20 MG/ML VIAL SLOW IVP PRN ×2 (09:05→20:32)
[2020-07-08] MEDS: Magnesium Oxide 400 MG TAB PO SCH (09:10)
[2020-07-08 09:33] LABS: Band 2 % (5-11); Lymphocytes 11 % (21-51); MDiff Complete? YES; Monocytes 4 % (0-10); Neutrophil 82 % (42-75); RBC Morphology Normal; Reactive Lymphocytes 1 % (0-10)
--- NOTE | 2020-07-08 12:38 | PDOC.NEPPN ---
- Subjective Encounter Date: 07/08/20 Subjective: Seen and examined. Very awake and in high spirit. afebrile. Oral intake is improved. - Objective Vital Signs & Weight: Vital Signs (12 hours) Temp Pulse Resp BP Pulse Ox 07/08/20 11:04 97.8 F 74 26 H 146/77 H 95 07/08/20 07:55 97.8 F 63 22 H 157/89 H 95 07/08/20 04:41 173/91 H 07/08/20 04:21 92 L 07/08/20 04:00 97.4 F L 60 19 191/93 H 93 L Weight Admit Weight 216 lb Weight 259 lb 11.272 oz I&O: 07/07/20 07/08/20 07/09/20 06:59 06:59 06:59 Intake Total 2200 800 Output Total 1550 2750 Balance 650 -1950 Result Diagrams: 07/08/20 06:40 07/08/20 06:40 Additional Labs: Accuchecks 07/08/20 07/08/20 07/07/20 10:03 05:26 20:46 POC Glucose 106 H 108 H 173 H 07/07/20 16:34 POC Glucose 165 H Nephrology ROS - Medication Medications: Active Medications Generic Name Dose Route Start Last Admin Trade Name Freq PRN Reason Stop Dose Admin Acetaminophen 650 mg 06/28/20 12:23 07/05/20 07:50 Acetaminophen 325 Mg Tab PO 650 mg Q4H PRN Administration Headache/Fever or Pain Albuterol Sulfate 2 puff 06/27/20 23:06 07/04/20 16:59 Albuterol 200 Puff (6.7gm Inhaler) INH 2 puff [id number] PRN Administration Wheezing Ascorbic Acid 1,000 mg 06/28/20 09:00 07/08/20 09:00 Ascorbic Acid 500 Mg Chewable Tablet PO 1,000 mg DAILY WILLIAMS Administration Calcium Carbonate 1,000 mg 07/08/20 09:00 07/08/20 09:00 Calcium Carbonate 500 Mg Chewtab PO 1,000 mg TID WILLIAMS Administration Dexamethasone 6 mg 06/30/20 09:00 07/08/20 09:01 Dexamethasone 4 Mg/Ml Vial SLOW IVP 6 mg DAILY WILLIAMS Administration Ergocalciferol 1.25 mg 07/08/20 09:00 07/08/20 08:59 Ergocalciferol 1.25 Mg(50,000 Units) Cap PO 1.25 mg Q7DAYS WILLIAMS Administration Folic Acid 1 mg 06/28/20 09:00 07/08/20 09:00 Folic Acid 1 Mg Tab PO 1 mg DAILY WILLIAMS Administration Heparin Sodium (Porcine) 500 units 07/05/20 10:03 07/08/20 05:23 Heparin 500 Units/5 Ml Flush Syringe IV 500 unit PRN PRN Administration Heparin Flush Heparin Sodium (Porcine) 5,000 units 07/05/20 21:00 07/08/20 09:03 Heparin 5,000 Units/Ml Vial SC 5,000 units BID WILLIAMS Administration Hydralazine HCl 10 mg 07/08/20 08:02 07/08/20 09:05 Hydralazine 20 Mg/Ml Vial SLOW IVP 10 mg Q6H PRN Administration Hypertension Insulin Human Lispro 0 units 06/27/20 18:39 07/07/20 17:18 Humalog 300 Units/3 Ml Vial SC 2 unit .MILD SLIDING SCALE PRN Administration Mild Correctional Scale Insulin Human Lispro 0 units 06/27/20 18:39 07/06/20 21:09 Humalog 300 Units/3 Ml Vial SC 3 unit .BEDTIME SLIDING SC PRN Administration Bedtime Correctional Scale Iron/Minerals/Multivitamins 1 tab 06/28/20 09:00 07/08/20 09:01 Multivitamin W/ Minerals 1 Tab PO 1 tab DAILY WILLIAMS Administration Magnesium Oxide 400 mg 06/28/20 09:00 07/08/20 09:10 Magnesium Oxide 400 Mg Tab PO 400 mg DAILY WILLIAMS Administration Pantoprazole Sodium 40 mg 07/08/20 09:00 07/08/20 09:01 Pantoprazole 40 Mg Tab PO 40 mg DAILY WILLIAMS Administration Sodium Bicarbonate 1,300 mg 06/29/20 09:00 07/08/20 09:00 Sodium Bicarbonate Tab 325 Mg Tab PO 1,300 mg TID WILLIAMS Administration Sodium Chloride 10 ml 06/27/20 16:43 07/04/20 08:24 Flush - Normal Saline 10 Ml Syringe IVF 10 ml PRN PRN Administration Saline Flush Thiamine HCl 100 mg 06/28/20 09:00 07/08/20 09:01 Thiamine 100 Mg Tab PO 100 mg DAILY WILLIAMS Administration Torsemide 100 mg 07/08/20 09:00 07/08/20 09:01 Torsemide 100 Mg Tab PO 100 mg DAILY WILLIAMS Administration Zinc Sulfate 220 mg 06/28/20 09:00 07/08/20 09:00 Zinc Sulfate 220 Mg Cap PO 220 mg DAILY WILLIAMS Administration - Exam General Appearance: awake alert Eye: anicteric sclera ENT: normocephalic atraumatic, moist mucosa Neck: supple, symmetric, no JVD Respiratory - other findings: fair air entry bilaterally with some transmitted sound Cardiovascular: RRR Gastrointestinal: soft Extremities - other findings: trace to mild bilateral leg edema Neurological: CN's grossly intact, no focal deficits Musculoskeletal: generalized weakness PSYCH: oriented to person, oriented to place Psychiatric - other findings: decreased cognitive ability Nephrology Results - Labs Result Diagrams: 07/08/20 06:40 07/08/20 06:40 Lab results: WBC 13.1 thou/uL (4.8-10.8) H 07/08/20 06:40 Hgb 11.4 g/dL (14.0-18.0) L 07/08/20 06:40 Hct 35.1 % (42.0-52.0) L 07/08/20 06:40 MCV 86.7 fL (78.0-98.0) 07/08/20 06:40 Plt Count 194 thou/uL (130-400) 07/08/20 06:40 Neutrophils % 90.6 % (42.0-75.0) H 07/02/20 04:47 Band Neuts % (Manual) 2 % (5-11) L 07/08/20 06:40 Sodium 124 mmol/L (136-145) L 07/08/20 06:40 Potassium 4.3 mmol/L (3.5-5.1) 07/08/20 06:40 Chloride 87 mmol/L (98-107) L 07/08/20 06:40 Carbon Dioxide 22 mmol/L (22-29) 07/08/20 06:40 BUN 93 mg/dL (8.4-25.7) H 07/08/20 06:40 Creatinine 5.77 mg/dL (0.7-1.3) H 07/08/20 06:40 Glucose 94 mg/dL (70-105) 07/08/20 06:40 Lactic Acid 2.4 mmol/L (0.5-2.2) H 06/28/20 04:29 Calcium 7.2 mg/dL (7.8-10.44) L 07/08/20 06:40 Total Bilirubin 0.6 mg/dL (0.2-1.2) 07/01/20 05:50 AST 301 U/L (5-34) H 07/01/20 05:50 ALT 277 U/L (8-55) H 07/01/20 05:50 Alkaline Phosphatase 156 U/L (40-110) H 07/01/20 05:50 Ammonia 85 umol/L (18-72) H 06/27/20 17:15 Creatine Kinase 284 U/L (30-200) H 06/27/20 13:56 Troponin I 0.026 ng/mL (< 0.028) 06/27/20 13:56 C-Reactive Protein 6.16 mg/dL (= or < 0.5) H 07/08/20 06:41 B-Natriuretic Peptide Less than 10.0 pg/mL (0-100) 06/27/20 13:56 Serum Total Protein 6.5 g/dL (6.0-8.3) 07/01/20 05:50 Albumin 2.9 g/dL (3.5-5.0) L 07/07/20 04:58 Lipase 242 U/L (8-78) H 06/27/20 17:15 Urine Ketones Negative mg/dL (Negative) 07/07/20 00:05 Urine Blood 3+ (Negative) A 07/07/20 00:05 Urine Nitrite Negative (Negative) 07/07/20 00:05 Ur Leukocyte Esterase Negative Nadia/uL (Negative) 07/07/20 00:05 Urine RBC 0-3 HPF (0-3) 07/07/20 00:05 Urine WBC 0-3 HPF (0-3) 07/07/20 00:05 Ur Squamous Epith Cells None Seen HPF (0-3) 07/07/20 00:05 Urine Bacteria None Seen HPF (None Seen) 07/07/20 00:05 Sodium 124 mmol/L (136-145) L 07/08/20 06:40 Potassium 4.3 mmol/L (3.5-5.1) 07/08/20 06:40 Chloride 87 mmol/L (98-107) L 07/08/20 06:40 Carbon Dioxide 22 mmol/L (22-29) 07/08/20 06:40 Anion Gap 19 mmol/L (10-20) 07/08/20 06:40 BUN 93 mg/dL (8.4-25.7) H 07/08/20 06:40 Creatinine 5.77 mg/dL (0.7-1.3) H 07/08/20 06:40 Glucose 94 mg/dL (70-105) 07/08/20 06:40 Calcium 7.2 mg/dL (7.8-10.44) L 07/08/20 06:40 Phosphorus 4.6 mg/dL (2.3-4.7) 07/07/20 04:58 Magnesium 2.2 mg/dL (1.6-2.6) 06/29/20 04:38 Albumin 2.9 g/dL (3.5-5.0) L 07/07/20 04:58 Nephrology AP PN - Plan Acute renal failure: Most likely due to hemodynamic factors related to severe dehydration and acute infection. Initiated on HD 06/30/2020 due to worsening azotemia with Uremic encephalopathy. Last HD on 07/06/20. Edema: Fluid overload and hypoalbuminemia. improving Uremic encephalopathy. Improved. Metabolic acidosis Hyperkalemia: Resolved Severe dehydration: Resolved. Shock: due to hypovolemia and acute infection due to COVID. Resolved. Possible catheter associated infection: Given intermittent fever and positive catheter tip culture positivity. Fever has subsided after removal of catheter. Appreciate ID input. Abnormal LFT: Due to dehydration and covid infection Hyponatremia: Due to severe volume depletion with appropriate ADH secretion. COVID infection. HX of HTN. Hx Autism. PLAN Will continue HD using TTs schedule. Next HD tomorrow For TDC placement tomorrow Continue diuretic therapy Case Mgt consulted for outpatient HD placement Monitor I/O and renal function for renal recovery.
[2020-07-08 15:04] VITALS: BMI 39.4
[2020-07-08] MEDS ORDERED: CEFAZOLIN 2 GM in Premix Bag 1 BAG IVPB SCH (16:45)
--- NOTE | 2020-07-08 16:55 | PRG ---
DATE OF SERVICE: 07/08/2020 Mr. Kemp's renal function has not recovered. Dr. Conner has asked me to place a cuffed tunneled dialysis catheter now that the patient is out of COVID isolation. Plan is to place hemodialysis catheter. I have discussed with the patient and his relatives at bedside. He will be n.p.o. after midnight and plan placement of cuffed tunneled hemodialysis catheter in hopes of his renal function will recover in the future. His renal function was normal just prior to his COVID illness. Job ID: [id number]
--- NOTE | 2020-07-08 20:15 | PDOC.HOSPP ---
- Subjective Encounter Date: 07/08/20 Subjective: Well-appearing in no acute distress - Objective Vital Signs & Weight: Vital Signs (12 hours) Temp Pulse Resp BP Pulse Ox 07/08/20 16:20 97.7 F 76 20 137/93 H 95 07/08/20 11:04 97.8 F 74 26 H 146/77 H 95 Weight Admit Weight 216 lb Weight 259 lb 11.272 oz I&O: 07/07/20 07/08/20 07/09/20 06:59 06:59 06:59 Intake Total 2200 800 800 Output Total 1550 2750 2050 Balance 427 -4075 -9424 Result Diagrams: 07/08/20 06:40 07/08/20 06:40 Additional Labs: Accuchecks 07/08/20 07/08/20 07/07/20 10:03 05:26 20:46 POC Glucose 106 H 108 H 173 H Hospitalist ROS - Medication Medications: Active Medications Generic Name Dose Route Start Last Admin Trade Name Freq PRN Reason Stop Dose Admin Acetaminophen 650 mg 06/28/20 12:23 07/05/20 07:50 Acetaminophen 325 Mg Tab PO 650 mg Q4H PRN Administration Headache/Fever or Pain Albuterol Sulfate 2 puff 06/27/20 23:06 07/04/20 16:59 Albuterol 200 Puff (6.7gm Inhaler) INH 2 puff [id number] PRN Administration Wheezing Ascorbic Acid 1,000 mg 06/28/20 09:00 07/08/20 09:00 Ascorbic Acid 500 Mg Chewable Tablet PO 1,000 mg DAILY WILLIAMS Administration Calcium Carbonate 1,000 mg 07/08/20 09:00 07/08/20 15:36 Calcium Carbonate 500 Mg Chewtab PO 1,000 mg TID WILLIAMS Administration Dexamethasone 6 mg 06/30/20 09:00 07/08/20 09:01 Dexamethasone 4 Mg/Ml Vial SLOW IVP 6 mg DAILY WILLIAMS Administration Ergocalciferol 1.25 mg 07/08/20 09:00 07/08/20 08:59 Ergocalciferol 1.25 Mg(50,000 Units) Cap PO 1.25 mg Q7DAYS WILLIAMS Administration Folic Acid 1 mg 06/28/20 09:00 07/08/20 09:00 Folic Acid 1 Mg Tab PO 1 mg DAILY WILLIAMS Administration Heparin Sodium (Porcine) 500 units 07/05/20 10:03 07/08/20 05:23 Heparin 500 Units/5 Ml Flush Syringe IV 500 unit PRN PRN Administration Heparin Flush Heparin Sodium (Porcine) 5,000 units 07/05/20 21:00 07/08/20 09:03 Heparin 5,000 Units/Ml Vial SC 5,000 units BID WILLIAMS Administration Hydralazine HCl 10 mg 07/08/20 08:02 07/08/20 09:05 Hydralazine 20 Mg/Ml Vial SLOW IVP 10 mg Q6H PRN Administration Hypertension Insulin Human Lispro 0 units 06/27/20 18:39 07/07/20 17:18 Humalog 300 Units/3 Ml Vial SC 2 unit .MILD SLIDING SCALE PRN Administration Mild Correctional Scale Insulin Human Lispro 0 units 06/27/20 18:39 07/06/20 21:09 Humalog 300 Units/3 Ml Vial SC 3 unit .BEDTIME SLIDING SC PRN Administration Bedtime Correctional Scale Iron/Minerals/Multivitamins 1 tab 06/28/20 09:00 07/08/20 09:01 Multivitamin W/ Minerals 1 Tab PO 1 tab DAILY WILLIAMS Administration Magnesium Oxide 400 mg 06/28/20 09:00 07/08/20 09:10 Magnesium Oxide 400 Mg Tab PO 400 mg DAILY WILLIAMS Administration Pantoprazole Sodium 40 mg 07/08/20 09:00 07/08/20 09:01 Pantoprazole 40 Mg Tab PO 40 mg DAILY WILLIAMS Administration Sodium Bicarbonate 1,300 mg 06/29/20 09:00 07/08/20 15:36 Sodium Bicarbonate Tab 325 Mg Tab PO 1,300 mg TID WILLIAMS Administration Sodium Chloride 10 ml 06/27/20 16:43 07/04/20 08:24 Flush - Normal Saline 10 Ml Syringe IVF 10 ml PRN PRN Administration Saline Flush Thiamine HCl 100 mg 06/28/20 09:00 07/08/20 09:01 Thiamine 100 Mg Tab PO 100 mg DAILY WILLIAMS Administration Torsemide 100 mg 07/08/20 09:00 07/08/20 09:01 Torsemide 100 Mg Tab PO 100 mg DAILY WILLIAMS Administration Zinc Sulfate 220 mg 06/28/20 09:00 07/08/20 09:00 Zinc Sulfate 220 Mg Cap PO 220 mg DAILY WILLIAMS Administration Hospitalist Exam Vitals: Vital Signs (12 hours) Temp Pulse Resp BP Pulse Ox 07/08/20 16:20 97.7 F 76 20 137/93 H 95 07/08/20 11:04 97.8 F 74 26 H 146/77 H 95 Weight Admit Weight 216 lb Weight 259 lb 11.272 oz General Appearance: NAD Eye: PERRL, anicteric sclera ENT: normocephalic atraumatic Neck: supple, symmetric, no JVD Heart: RRR, no murmur, no gallops, no rubs Respiratory: CTAB, no wheezes, no rales Gastrointestinal: soft, non-tender, non-distended Hosp A/P (1) KASSIE (acute kidney injury) Code(s): N17.9 - ACUTE KIDNEY FAILURE, UNSPECIFIED Status: Acute (2) Autism Code(s): F84.0 - AUTISTIC DISORDER Status: Acute (3) Metabolic acidosis Code(s): E87.2 - ACIDOSIS Status: Acute (4) Obesity (BMI 30-39.9) Code(s): E66.9 - OBESITY, UNSPECIFIED Status: Acute (5) Pneumonia due to COVID-19 virus Code(s): U07.1 - COVID-19; J12.82 - PNEUMONIA DUE TO CORONAVIRUS DISEASE 2019 Status: Acute (6) Diabetes mellitus type 2 in obese Code(s): E11.69 - TYPE 2 DIABETES MELLITUS WITH OTHER SPECIFIED COMPLICATION; E66.9 - OBESITY, UNSPECIFIED Status: Chronic (7) Hypertension Code(s): I10 - ESSENTIAL (PRIMARY) HYPERTENSION Status: Chronic - Plan 59-year-old male with autism, diabetes mellitus type 2 and hypertension presented on 06/27 with generalized weakness and lethargy. His work-up was consistent with acute renal failure with creatinine of 9.47 and potassium of 5.5 on admission with COVID-19 pneumonia, abnormal LFTs and WBC of 12.1 with left shift. He was placed on O2 supplementation. He was evaluated by nephrology and has been started on hemodialysis with right groin hemodialysis catheter which later became nonfunctional requiring replacement. Plan: Continue supportive care. Blood culture remain negative. . ID--isolation has been removed. . We will continue dexamethasone. Continue heparin for DVT prophylaxis. Continue GI prophylaxis. Continue bronchodilators. Renal--- his catheter was replaced, Continue hemodialysis per nephrology, patient will also need outpatient dialysis set up. Blood pressure elevated --- IV hydralazine was added.
[2020-07-09] MEDS: hydrALAZINE 20 MG/ML VIAL SLOW IVP PRN ×2 (05:13→18:48)
[2020-07-09 05:52] LABS: Albumin 2.7 g/dL (3.5-5.0); Anion Gap 25 mmol/L (10-20); BUN (Urea Nitrogen) 109 mg/dL (8.4-25.7); BUN/Creatinine Ratio 16.74; Calc. Creatinine Clearance 20 mL/min (70-130); Calcium 7.5 mg/dL (7.8-10.44); Carbon Dioxide 20 mmol/L (22-29); Chloride 88 mmol/L (98-107); Glucose 92 mg/dL (70-105); Potassium 4.6 mmol/L (3.5-5.1); Sodium 128 mmol/L (136-145)
--- NOTE | 2020-07-09 08:23 | PDOC.NEPPN ---
- Subjective Encounter Date: 07/09/20 Subjective: No new problem. For TDC placement today. - Objective Vital Signs & Weight: Vital Signs (12 hours) Temp Pulse Resp BP BP Pulse Ox 07/09/20 05:13 65 174/95 H 07/09/20 03:32 95 07/09/20 03:21 97.7 F 65 20 167/101 H 95 07/09/20 00:00 98.2 F 76 20 165/83 H 95 07/08/20 20:48 66 173/96 H 07/08/20 20:32 66 Weight Admit Weight 216 lb Weight 251 lb 5.231 oz I&O: 07/08/20 07/09/20 07/10/20 06:59 06:59 06:59 Intake Total 800 800 Output Total 2750 2850 Balance -1949 Result Diagrams: 07/08/20 06:40 07/09/20 05:18 Additional Labs: Accuchecks 07/09/20 07/08/20 07/08/20 05:02 20:35 10:03 POC Glucose 99 135 H 106 H Nephrology ROS - Medication Medications: Active Medications Generic Name Dose Route Start Last Admin Trade Name Freq PRN Reason Stop Dose Admin Acetaminophen 650 mg 06/28/20 12:23 07/05/20 07:50 Acetaminophen 325 Mg Tab PO 650 mg Q4H PRN Administration Headache/Fever or Pain Albuterol Sulfate 2 puff 06/27/20 23:06 07/04/20 16:59 Albuterol 200 Puff (6.7gm Inhaler) INH 2 puff [id number] PRN Administration Wheezing Ascorbic Acid 1,000 mg 06/28/20 09:00 07/08/20 09:00 Ascorbic Acid 500 Mg Chewable Tablet PO 1,000 mg DAILY WILLIAMS Administration Calcium Carbonate 1,000 mg 07/08/20 09:00 07/08/20 20:30 Calcium Carbonate 500 Mg Chewtab PO 1,000 mg TID WILLIAMS Administration Dexamethasone 6 mg 06/30/20 09:00 07/08/20 09:01 Dexamethasone 4 Mg/Ml Vial SLOW IVP 6 mg DAILY WILLIAMS Administration Ergocalciferol 1.25 mg 07/08/20 09:00 07/08/20 08:59 Ergocalciferol 1.25 Mg(50,000 Units) Cap PO 1.25 mg Q7DAYS WILLIAMS Administration Folic Acid 1 mg 06/28/20 09:00 07/08/20 09:00 Folic Acid 1 Mg Tab PO 1 mg DAILY WILLIAMS Administration Heparin Sodium (Porcine) 500 units 07/05/20 10:03 07/08/20 05:23 Heparin 500 Units/5 Ml Flush Syringe IV 500 unit PRN PRN Administration Heparin Flush Heparin Sodium (Porcine) 5,000 units 07/05/20 21:00 07/08/20 20:30 Heparin 5,000 Units/Ml Vial SC 5,000 units BID WILLIAMS Administration Hydralazine HCl 10 mg 07/08/20 08:02 07/09/20 05:13 Hydralazine 20 Mg/Ml Vial SLOW IVP 10 mg Q6H PRN Administration Hypertension Insulin Human Lispro 0 units 06/27/20 18:39 07/07/20 17:18 Humalog 300 Units/3 Ml Vial SC 2 unit .MILD SLIDING SCALE PRN Administration Mild Correctional Scale Insulin Human Lispro 0 units 06/27/20 18:39 07/06/20 21:09 Humalog 300 Units/3 Ml Vial SC 3 unit .BEDTIME SLIDING SC PRN Administration Bedtime Correctional Scale Iron/Minerals/Multivitamins 1 tab 06/28/20 09:00 07/08/20 09:01 Multivitamin W/ Minerals 1 Tab PO 1 tab DAILY WILLIAMS Administration Magnesium Oxide 400 mg 06/28/20 09:00 07/08/20 09:10 Magnesium Oxide 400 Mg Tab PO 400 mg DAILY WILLIAMS Administration Pantoprazole Sodium 40 mg 07/08/20 09:00 07/08/20 09:01 Pantoprazole 40 Mg Tab PO 40 mg DAILY WILLIAMS Administration Sodium Chloride 10 ml 06/27/20 16:43 07/04/20 08:24 Flush - Normal Saline 10 Ml Syringe IVF 10 ml PRN PRN Administration Saline Flush Thiamine HCl 100 mg 06/28/20 09:00 07/08/20 09:01 Thiamine 100 Mg Tab PO 100 mg DAILY WILLIAMS Administration Torsemide 100 mg 07/08/20 09:00 07/08/20 09:01 Torsemide 100 Mg Tab PO 100 mg DAILY WILLIAMS Administration Zinc Sulfate 220 mg 06/28/20 09:00 07/08/20 09:00 Zinc Sulfate 220 Mg Cap PO 220 mg DAILY WILLIAMS Administration - Exam General Appearance: awake alert Eye: anicteric sclera ENT: normocephalic atraumatic, moist mucosa Neck: supple, symmetric Respiratory - other findings: fair air entry with scattered transmitted sound Cardiovascular: RRR Gastrointestinal: soft, non-tender, non-distended Extremities: 1+ LE edema Neurological: CN's grossly intact, no focal deficits Musculoskeletal: generalized weakness PSYCH: oriented to person, oriented to place Nephrology Results - Labs Result Diagrams: 07/08/20 06:40 07/09/20 05:18 Lab results: WBC 13.1 thou/uL (4.8-10.8) H 07/08/20 06:40 Hgb 11.4 g/dL (14.0-18.0) L 07/08/20 06:40 Hct 35.1 % (42.0-52.0) L 07/08/20 06:40 MCV 86.7 fL (78.0-98.0) 07/08/20 06:40 Plt Count 194 thou/uL (130-400) 07/08/20 06:40 Neutrophils % 90.6 % (42.0-75.0) H 07/02/20 04:47 Band Neuts % (Manual) 2 % (5-11) L 07/08/20 06:40 Sodium 128 mmol/L (136-145) L 07/09/20 05:18 Potassium 4.6 mmol/L (3.5-5.1) 07/09/20 05:18 Chloride 88 mmol/L (98-107) L 07/09/20 05:18 Carbon Dioxide 20 mmol/L (22-29) L 07/09/20 05:18 BUN 109 mg/dL (8.4-25.7) H 07/09/20 05:18 Creatinine 6.51 mg/dL (0.7-1.3) H 07/09/20 05:18 Glucose 92 mg/dL (70-105) 07/09/20 05:18 Lactic Acid 2.4 mmol/L (0.5-2.2) H 06/28/20 04:29 Calcium 7.5 mg/dL (7.8-10.44) L 07/09/20 05:18 Total Bilirubin 0.6 mg/dL (0.2-1.2) 07/01/20 05:50 AST 301 U/L (5-34) H 07/01/20 05:50 ALT 277 U/L (8-55) H 07/01/20 05:50 Alkaline Phosphatase 156 U/L (40-110) H 07/01/20 05:50 Ammonia 85 umol/L (18-72) H 06/27/20 17:15 Creatine Kinase 284 U/L (30-200) H 06/27/20 13:56 Troponin I 0.026 ng/mL (< 0.028) 06/27/20 13:56 C-Reactive Protein 6.16 mg/dL (= or < 0.5) H 07/08/20 06:41 B-Natriuretic Peptide Less than 10.0 pg/mL (0-100) 06/27/20 13:56 Serum Total Protein 6.5 g/dL (6.0-8.3) 07/01/20 05:50 Albumin 2.7 g/dL (3.5-5.0) L 07/09/20 05:18 Lipase 242 U/L (8-78) H 06/27/20 17:15 Urine Ketones Negative mg/dL (Negative) 07/07/20 00:05 Urine Blood 3+ (Negative) A 07/07/20 00:05 Urine Nitrite Negative (Negative) 07/07/20 00:05 Ur Leukocyte Esterase Negative Nadia/uL (Negative) 07/07/20 00:05 Urine RBC 0-3 HPF (0-3) 07/07/20 00:05 Urine WBC 0-3 HPF (0-3) 07/07/20 00:05 Ur Squamous Epith Cells None Seen HPF (0-3) 07/07/20 00:05 Urine Bacteria None Seen HPF (None Seen) 07/07/20 00:05 Sodium 128 mmol/L (136-145) L 07/09/20 05:18 Potassium 4.6 mmol/L (3.5-5.1) 07/09/20 05:18 Chloride 88 mmol/L (98-107) L 07/09/20 05:18 Carbon Dioxide 20 mmol/L (22-29) L 07/09/20 05:18 Anion Gap 25 mmol/L (10-20) H 07/09/20 05:18 BUN 109 mg/dL (8.4-25.7) H 07/09/20 05:18 Creatinine 6.51 mg/dL (0.7-1.3) H 07/09/20 05:18 Glucose 92 mg/dL (70-105) 07/09/20 05:18 Calcium 7.5 mg/dL (7.8-10.44) L 07/09/20 05:18 Phosphorus 7.0 mg/dL (2.3-4.7) H 07/09/20 05:18 Magnesium 2.2 mg/dL (1.6-2.6) 06/29/20 04:38 Albumin 2.7 g/dL (3.5-5.0) L 07/09/20 05:18 Nephrology AP PN - Plan Acute renal failure: Most likely due to hemodynamic factors related to severe dehydration and acute infection. Initiated on HD 06/30/2020 due to worsening azotemia with Uremic encephalopathy. Last HD on 07/06/20. Edema: Fluid overload and hypoalbuminemia. improving Uremic encephalopathy. Improved. Metabolic acidosis. Resolved. Hyperkalemia: Resolved Severe dehydration: Resolved. Shock: due to hypovolemia and acute infection due to COVID. Resolved. Possible catheter associated infection: Given intermittent fever and positive catheter tip culture positivity. Fever has subsided after removal of catheter. Appreciate ID input. Abnormal LFT: Due to dehydration and covid infection Hyponatremia: Due to severe volume depletion with appropriate ADH secretion. COVID infection. HTN. Control is suboptimal Autism with decreased cognitive ability PLAN Start amlodipine 5 mg daily HD today for 4 hours. Will start TTs schedule subsequently. For TDC placement today Continue diuretic therapy. Monitor I/O and renal function for renal recovery. For discharge after TDC placement and completion of outpatient dialysis placement
[2020-07-09] MEDS: Heparin 5,000 UNITS/ML VIAL SC SCH ×2 (09:04→09:13)
[2020-07-09] MEDS ORDERED: PROPOFOL 200 MG/20 ML VIAL ONE (12:07)
[2020-07-09] MEDS ORDERED: Ondansetron PF 4 MG/2 ML Vial ONE (12:07)
[2020-07-09] MEDS ORDERED: Lidocaine 1% PF 5 ML VIAL ONE (12:07)
[2020-07-09] MEDS ORDERED: Heparin 10,000 UNITS/ 10 ML VIAL ONE (15:25)
[2020-07-09] MEDS ORDERED: XYLOCAINE 2%-EPI 1:100,000 20 ML VIAL ONE (15:26)
[2020-07-09] MEDS ORDERED: Sodium Chloride 0.9% 30 ML ONE (15:26)
[2020-07-09] MEDS ORDERED: Bupivacaine PF 0.5% 30 ML VIAL ONE (15:26)
[2020-07-09] MEDS ORDERED: Ketamine 50 MG/ML (10ML VIAL) ONE (15:35)
[2020-07-09] MEDS ORDERED: Acetaminophen 500 MG TAB PO PRN (15:47)
[2020-07-09] MEDS ORDERED: traMADol HCl 50 MG TAB PO PRN (15:47)
[2020-07-09] MEDS: Calcium Carbonate 500 MG ChewTAB PO SCH ×3 (16:29→20:36)
--- NOTE | 2020-07-09 16:58 | RAD ---
XR Chest 1 View Portable History: Central line placement Comparison: Chest radiograph 2 days prior Findings: Dialysis catheter tip projects over the inferior SVC. No pneumothorax. Extensive airspace o pacities throughout the lungs. Heart size mildly enlarged. No acute osseous abnormality. Impression: No postprocedural pneumothorax.
[2020-07-09] MEDS ORDERED: Metoprolol Tartrate 5 MG/5 ML VIAL ONE (17:15)
--- NOTE | 2020-07-09 17:25 | PDOC.HOSPP ---
- Subjective Encounter Date: 07/09/20 Subjective: Doing well and has no complaints - Objective Vital Signs & Weight: Vital Signs (12 hours) Temp Pulse Resp BP Pulse Ox 07/09/20 08:40 95 07/09/20 08:00 98 F 70 13 158/88 H 93 L Weight Admit Weight 216 lb Weight 251 lb 5.231 oz I&O: 07/08/20 07/09/20 07/10/20 06:59 06:59 06:59 Intake Total 800 800 Output Total 2750 2850 1500 Balance -1949 -2049 Result Diagrams: 07/08/20 06:40 07/09/20 05:18 Additional Labs: Accuchecks 07/09/20 07/08/20 07/08/20 05:02 20:35 16:18 POC Glucose 99 135 H 144 H Hospitalist ROS - Medication Medications: Active Medications Generic Name Dose Route Start Last Admin Trade Name Freq PRN Reason Stop Dose Admin Albuterol Sulfate 2 puff 06/27/20 23:06 07/04/20 16:59 Albuterol 200 Puff (6.7gm Inhaler) INH 2 puff [id number] PRN Administration Wheezing Ascorbic Acid 1,000 mg 06/28/20 09:00 07/08/20 09:00 Ascorbic Acid 500 Mg Chewable Tablet PO 1,000 mg DAILY WILLIAMS Administration Calcium Carbonate 1,000 mg 07/08/20 09:00 07/09/20 16:29 Calcium Carbonate 500 Mg Chewtab PO Not Given TID WILLIAMS Dexamethasone 6 mg 06/30/20 09:00 07/08/20 09:01 Dexamethasone 4 Mg/Ml Vial SLOW IVP 6 mg DAILY WILLIAMS Administration Ergocalciferol 1.25 mg 07/08/20 09:00 07/08/20 08:59 Ergocalciferol 1.25 Mg(50,000 Units) Cap PO 1.25 mg Q7DAYS WILLIAMS Administration Folic Acid 1 mg 06/28/20 09:00 07/08/20 09:00 Folic Acid 1 Mg Tab PO 1 mg DAILY WILLIAMS Administration Heparin Sodium (Porcine) 500 units 07/05/20 10:03 07/08/20 05:23 Heparin 500 Units/5 Ml Flush Syringe IV 500 unit PRN PRN Administration Heparin Flush Heparin Sodium (Porcine) 5,000 units 07/05/20 21:00 07/09/20 09:13 Heparin 5,000 Units/Ml Vial SC 5,000 units BID WILLIAMS Administration Hydralazine HCl 10 mg 07/08/20 08:02 07/09/20 05:13 Hydralazine 20 Mg/Ml Vial SLOW IVP 10 mg Q6H PRN Administration Hypertension Insulin Human Lispro 0 units 06/27/20 18:39 07/07/20 17:18 Humalog 300 Units/3 Ml Vial SC 2 unit .MILD SLIDING SCALE PRN Administration Mild Correctional Scale Insulin Human Lispro 0 units 06/27/20 18:39 07/06/20 21:09 Humalog 300 Units/3 Ml Vial SC 3 unit .BEDTIME SLIDING SC PRN Administration Bedtime Correctional Scale Iron/Minerals/Multivitamins 1 tab 06/28/20 09:00 07/08/20 09:01 Multivitamin W/ Minerals 1 Tab PO 1 tab DAILY WILLIAMS Administration Magnesium Oxide 400 mg 06/28/20 09:00 07/08/20 09:10 Magnesium Oxide 400 Mg Tab PO 400 mg DAILY WILLIAMS Administration Pantoprazole Sodium 40 mg 07/08/20 09:00 07/08/20 09:01 Pantoprazole 40 Mg Tab PO 40 mg DAILY WILLIAMS Administration Sodium Chloride 10 ml 06/27/20 16:43 07/04/20 08:24 Flush - Normal Saline 10 Ml Syringe IVF 10 ml PRN PRN Administration Saline Flush Thiamine HCl 100 mg 06/28/20 09:00 07/08/20 09:01 Thiamine 100 Mg Tab PO 100 mg DAILY WILLIAMS Administration Torsemide 100 mg 07/08/20 09:00 07/08/20 09:01 Torsemide 100 Mg Tab PO 100 mg DAILY WILLIAMS Administration Zinc Sulfate 220 mg 06/28/20 09:00 07/08/20 09:00 Zinc Sulfate 220 Mg Cap PO 220 mg DAILY WILLIAMS Administration Hospitalist Exam Vitals: Vital Signs (12 hours) Temp Pulse Resp BP Pulse Ox 07/09/20 08:40 95 07/09/20 08:00 98 F 70 13 158/88 H 93 L Weight Admit Weight 216 lb Weight 251 lb 5.231 oz General Appearance: NAD Eye: PERRL ENT: normocephalic atraumatic, no oropharyngeal lesions Neck: supple, symmetric, no JVD Heart: RRR, no murmur, no gallops Respiratory: CTAB, no wheezes Hosp A/P (1) KASSIE (acute kidney injury) Code(s): N17.9 - ACUTE KIDNEY FAILURE, UNSPECIFIED Status: Acute (2) Autism Code(s): F84.0 - AUTISTIC DISORDER Status: Acute (3) Metabolic acidosis Code(s): E87.2 - ACIDOSIS Status: Acute (4) Obesity (BMI 30-39.9) Code(s): E66.9 - OBESITY, UNSPECIFIED Status: Acute (5) Pneumonia due to COVID-19 virus Code(s): U07.1 - COVID-19; J12.82 - PNEUMONIA DUE TO CORONAVIRUS DISEASE 2019 Status: Acute (6) Diabetes mellitus type 2 in obese Code(s): E11.69 - TYPE 2 DIABETES MELLITUS WITH OTHER SPECIFIED COMPLICATION; E66.9 - OBESITY, UNSPECIFIED Status: Chronic (7) Hypertension Code(s): I10 - ESSENTIAL (PRIMARY) HYPERTENSION Status: Chronic - Plan 59-year-old male with autism, diabetes mellitus type 2 and hypertension presented on 06/27 with generalized weakness and lethargy. His work-up was consistent with acute renal failure with creatinine of 9.47 and potassium of 5.5 on admission with COVID-19 pneumonia, abnormal LFTs and WBC of 12.1 with left shift. He was placed on O2 supplementation. He was evaluated by nephrology and has been started on hemodialysis with right groin hemodialysis catheter which later became nonfunctional requiring replacement. Plan: Continue supportive care. Blood culture remain negative. . ID--isolation has been removed. . We will continue dexamethasone. Continue heparin for DVT prophylaxis. Continue GI prophylaxis. Continue bronchodilators. Renal--- his catheter was replaced, Continue hemodialysis per nephrology, patient will also need outpatient dialysis set up. Blood pressure elevated --- IV hydralazine was added. Plan for today 07/09 Patient is going to have his permanent catheter placed, otherwise case manag ement in the process of arranging a hemodialysis center to continue hemodialysis as an outpatient. Amlodipine was added to better control his blood pressure.
--- NOTE | 2020-07-09 17:50 | OP ---
DATE OF PROCEDURE: 07/09/2020 PREOPERATIVE DIAGNOSES: Acute renal failure secondary to COVID illness, pneumonia. POSTOPERATIVE DIAGNOSES: Acute renal failure secondary to COVID illness, pneumonia. PROCEDURE PERFORMED: Right IJ cuffed tunneled dialysis catheter, ultrasound and fluoroscopy used. ANESTHESIA: General LMA, local 0.5% Marcaine 30 mL mixed with 1% Xylocaine with epinephrine 20 mL. DESCRIPTION OF PROCEDURE: The patient was taken to the operating room, where under intravenous LMA anesthesia, neck and chest prepared with ChloraPrep and draped in routine fashion. Ultrasound used to cannulate the right internal jugular vein. J-wire threaded. Trocar catheter removed. Skin incision site enlarged sharply with stab incision over the right chest. Tunneling device used to tunnel the pre-curved [employer] cuffed tunneled hemodialysis catheter between the 2 incisions, placing the fabric cuff beneath the skin exit site, securing this catheter with two interrupted suture of 3-0 nylon, sterile dressing applied. Small and medium size dilators placed over the J-wire into the internal jugular vein and removed. Dilator and Peel-Away sheath placed with J-wire in the internal jugular vein, and J-wire and dilator removed. Catheter placed with Peel-Away sheath. Peel-Away sheath removed. Platysma was approximated with 4-0 Monocryl, skin with subdermal 4-0 Monocryl, and dermal glue applied. Each port aspirated of blood, flushed with saline solution and heparinized saline solution with 1000 units of heparin per mL, indicating volume of the port. Final fluoroscopic images revealed good line placement. Job ID: [id number]
[2020-07-09] MEDS: Ascorbic Acid 500 mg Chewable Tablet PO SCH (18:43)
[2020-07-09] MEDS: Dexamethasone 4 mg/ml Vial SLOW IVP SCH (18:43)
[2020-07-09] MEDS: Magnesium Oxide 400 MG TAB PO SCH (18:44)
[2020-07-09] MEDS: Multivitamin W/ Minerals 1 TAB PO SCH (18:44)
[2020-07-09] MEDS: Folic Acid 1 MG TAB PO SCH (18:44)
[2020-07-09] MEDS: Thiamine 100 MG TAB PO SCH (18:44)
[2020-07-09] MEDS: Torsemide 100 MG TAB PO SCH (18:45)
[2020-07-09] MEDS: Zinc Sulfate 220 MG CAP PO SCH (18:45)
[2020-07-09] MEDS: Amlodipine 5 MG TAB PO SCH (20:35)
[2020-07-10 05:19] LABS: Albumin 2.8 g/dL (3.5-5.0); Anion Gap 18 mmol/L (10-20); BUN (Urea Nitrogen) 81 mg/dL (8.4-25.7); BUN/Creatinine Ratio 15.06; Calc. Creatinine Clearance 24 mL/min (70-130); Calcium 7.7 mg/dL (7.8-10.44); Carbon Dioxide 25 mmol/L (22-29); Chloride 94 mmol/L (98-107); Glucose 118 mg/dL (70-105); Phosphorus 6.8 mg/dL (2.3-4.7); Potassium 4.7 mmol/L (3.5-5.1); Sodium 132 mmol/L (136-145)
[2020-07-10] MEDS ORDERED: GUAIFENESIN SF SOLN 200 MG/10 ML UDCUP PO PRN (08:42)
[2020-07-10] MEDS ORDERED: Cepastat Lozenges 1 LOZ PO PRN (08:42)
[2020-07-10] MEDS ORDERED: Loratadine 10 MG TAB PO PRN (08:42)
[2020-07-10] MEDS ORDERED: Loperamide HCl 2 MG CAP PO PRN (08:42)
[2020-07-10] MEDS ORDERED: Benzonatate 100 MG CAP PO PRN (08:42)
[2020-07-10] MEDS ORDERED: Zolpidem Tartrate 5 MG TAB PO PRN (08:42)
[2020-07-10] MEDS ORDERED: Sodium Chloride 0.65% Nasal 44 ML BOT EA NARE PRN (08:42)
[2020-07-10] MEDS ORDERED: Senokot S 8.6-50 MG TAB PO PRN (08:42)
[2020-07-10] MEDS ORDERED: Ondansetron ODT 4 MG TAB PO PRN (08:42)
[2020-07-10] MEDS ORDERED: Ondansetron PF 4 MG/2 ML Vial IVP PRN (08:42)
[2020-07-10] MEDS: Calcium Carbonate 500 MG ChewTAB PO SCH ×3 (09:41→23:00)
[2020-07-10] MEDS: Dexamethasone 4 mg/ml Vial SLOW IVP SCH (09:41)
[2020-07-10] MEDS: Ascorbic Acid 500 mg Chewable Tablet PO SCH (09:41)
[2020-07-10] MEDS: Heparin 5,000 UNITS/ML VIAL SC SCH ×2 (09:42→23:05)
[2020-07-10] MEDS: Folic Acid 1 MG TAB PO SCH (09:42)
[2020-07-10] MEDS: Magnesium Oxide 400 MG TAB PO SCH (09:44)
[2020-07-10] MEDS: Multivitamin W/ Minerals 1 TAB PO SCH (09:44)
[2020-07-10] MEDS: Thiamine 100 MG TAB PO SCH (09:44)
[2020-07-10] MEDS: Zinc Sulfate 220 MG CAP PO SCH (09:45)
[2020-07-10] MEDS: Torsemide 100 MG TAB PO SCH (09:48)
--- NOTE | 2020-07-10 11:54 | PDOC.NEPPN ---
- Subjective Encounter Date: 07/10/20 Subjective: Seen and examined. Feeling great and wants to go home. Brother reported that patient is verey close to baseline if not baseline. Had TDC placement yesterday. - Objective Vital Signs & Weight: Vital Signs (12 hours) Temp Pulse Resp BP Pulse Ox 07/10/20 08:00 98.7 F 82 17 145/82 H 97 07/10/20 04:20 97.6 F 87 18 136/85 94 L 07/10/20 00:04 163/95 H Weight Admit Weight 216 lb Weight 245 lb 9.519 oz I&O: 07/09/20 07/10/20 07/11/20 06:59 06:59 06:59 Intake Total 800 240 550 Output Total 2850 1500 Balance -2050 -1260 550 Result Diagrams: 07/08/20 06:40 07/10/20 04:31 Additional Labs: Accuchecks 07/10/20 07/10/20 07/09/20 10:52 04:29 20:38 POC Glucose 153 H 129 H 115 H 07/09/20 07/08/20 17:49 16:18 POC Glucose 110 H 144 H Nephrology ROS - Medication Medications: Active Medications Generic Name Dose Route Start Last Admin Trade Name Freq PRN Reason Stop Dose Admin Albuterol Sulfate 2 puff 06/27/20 23:06 07/04/20 16:59 Albuterol 200 Puff (6.7gm Inhaler) INH 2 puff [id number] PRN Administration Wheezing Amlodipine Besylate 5 mg 07/09/20 21:00 07/09/20 20:35 Amlodipine 5 Mg Tab PO 5 mg HS WILLIAMS Administration Ascorbic Acid 1,000 mg 06/28/20 09:00 07/10/20 09:41 Ascorbic Acid 500 Mg Chewable Tablet PO 1,000 mg DAILY WILLIAMS Administration Calcium Carbonate 1,000 mg 07/08/20 09:00 07/10/20 09:41 Calcium Carbonate 500 Mg Chewtab PO 1,000 mg TID WILLIAMS Administration Dexamethasone 6 mg 06/30/20 09:00 07/10/20 09:41 Dexamethasone 4 Mg/Ml Vial SLOW IVP 6 mg DAILY WILLIAMS Administration Ergocalciferol 1.25 mg 07/08/20 09:00 07/08/20 08:59 Ergocalciferol 1.25 Mg(50,000 Units) Cap PO 1.25 mg Q7DAYS WILLIAMS Administration Folic Acid 1 mg 06/28/20 09:00 07/10/20 09:42 Folic Acid 1 Mg Tab PO 1 mg DAILY WILLIAMS Administration Heparin Sodium (Porcine) 500 units 07/05/20 10:03 07/10/20 09:48 Heparin 500 Units/5 Ml Flush Syringe IV 500 unit PRN PRN Administration Heparin Flush Heparin Sodium (Porcine) 5,000 units 07/05/20 21:00 07/10/20 09:42 Heparin 5,000 Units/Ml Vial SC 5,000 units BID WILLIAMS Administration Hydralazine HCl 10 mg 07/08/20 08:02 07/09/20 18:48 Hydralazine 20 Mg/Ml Vial SLOW IVP 10 mg Q6H PRN Administration Hypertension Insulin Human Lispro 0 units 06/27/20 18:39 07/07/20 17:18 Humalog 300 Units/3 Ml Vial SC 2 unit .MILD SLIDING SCALE PRN Administration Mild Correctional Scale Insulin Human Lispro 0 units 06/27/20 18:39 07/06/20 21:09 Humalog 300 Units/3 Ml Vial SC 3 unit .BEDTIME SLIDING SC PRN Administration Bedtime Correctional Scale Iron/Minerals/Multivitamins 1 tab 06/28/20 09:00 07/10/20 09:44 Multivitamin W/ Minerals 1 Tab PO 1 tab DAILY WILLIAMS Administration Magnesium Oxide 400 mg 06/28/20 09:00 07/10/20 09:44 Magnesium Oxide 400 Mg Tab PO 400 mg DAILY WILLIAMS Administration Pantoprazole Sodium 40 mg 07/08/20 09:00 07/10/20 09:44 Pantoprazole 40 Mg Tab PO 40 mg DAILY WILLIAMS Administration Sodium Chloride 10 ml 06/27/20 16:43 07/04/20 08:24 Flush - Normal Saline 10 Ml Syringe IVF 10 ml PRN PRN Administration Saline Flush Thiamine HCl 100 mg 06/28/20 09:00 07/10/20 09:44 Thiamine 100 Mg Tab PO 100 mg DAILY WILLIAMS Administration Torsemide 100 mg 07/08/20 09:00 07/10/20 09:48 Torsemide 100 Mg Tab PO 100 mg DAILY WILLIAMS Administration Zinc Sulfate 220 mg 06/28/20 09:00 07/10/20 09:45 Zinc Sulfate 220 Mg Cap PO 220 mg DAILY WILLIAMS Administration - Exam General Appearance: awake alert Eye: anicteric sclera ENT: normocephalic atraumatic, moist mucosa Neck: supple, symmetric, no JVD Respiratory: no wheezes, no ronchi, normal chest expansion, no tachypnea Respiratory - other findings: fair air entry bilaterally Cardiovascular: RRR Gastrointestinal: soft, non-tender, non-distended, normal bowel sounds Extremities - other findings: trace feet edema Neurological: CN's grossly intact, no focal deficits Neurological - other findings: decreased cognitive ability noted PSYCH: oriented to person, oriented to place Nephrology Results - Labs Result Diagrams: 07/08/20 06:40 07/10/20 04:31 Lab results: WBC 13.1 thou/uL (4.8-10.8) H 07/08/20 06:40 Hgb 11.4 g/dL (14.0-18.0) L 07/08/20 06:40 Hct 35.1 % (42.0-52.0) L 07/08/20 06:40 MCV 86.7 fL (78.0-98.0) 07/08/20 06:40 Plt Count 194 thou/uL (130-400) 07/08/20 06:40 Neutrophils % 90.6 % (42.0-75.0) H 07/02/20 04:47 Band Neuts % (Manual) 2 % (5-11) L 07/08/20 06:40 Sodium 132 mmol/L (136-145) L 07/10/20 04:31 Potassium 4.7 mmol/L (3.5-5.1) 07/10/20 04:31 Chloride 94 mmol/L (98-107) L 07/10/20 04:31 Carbon Dioxide 25 mmol/L (22-29) 07/10/20 04:31 BUN 81 mg/dL (8.4-25.7) H 07/10/20 04:31 Creatinine 5.38 mg/dL (0.7-1.3) H 07/10/20 04:31 Glucose 118 mg/dL (70-105) H 07/10/20 04:31 Lactic Acid 2.4 mmol/L (0.5-2.2) H 06/28/20 04:29 Calcium 7.7 mg/dL (7.8-10.44) L 07/10/20 04:31 Total Bilirubin 0.6 mg/dL (0.2-1.2) 07/01/20 05:50 AST 301 U/L (5-34) H 07/01/20 05:50 ALT 277 U/L (8-55) H 07/01/20 05:50 Alkaline Phosphatase 156 U/L (40-110) H 07/01/20 05:50 Ammonia 85 umol/L (18-72) H 06/27/20 17:15 Creatine Kinase 284 U/L (30-200) H 06/27/20 13:56 Troponin I 0.026 ng/mL (< 0.028) 06/27/20 13:56 C-Reactive Protein 6.16 mg/dL (= or < 0.5) H 07/08/20 06:41 B-Natriuretic Peptide Less than 10.0 pg/mL (0-100) 06/27/20 13:56 Serum Total Protein 6.5 g/dL (6.0-8.3) 07/01/20 05:50 Albumin 2.8 g/dL (3.5-5.0) L 07/10/20 04:31 Lipase 242 U/L (8-78) H 06/27/20 17:15 Urine Ketones Negative mg/dL (Negative) 07/07/20 00:05 Urine Blood 3+ (Negative) A 07/07/20 00:05 Urine Nitrite Negative (Negative) 07/07/20 00:05 Ur Leukocyte Esterase Negative Nadia/uL (Negative) 07/07/20 00:05 Urine RBC 0-3 HPF (0-3) 07/07/20 00:05 Urine WBC 0-3 HPF (0-3) 07/07/20 00:05 Ur Squamous Epith Cells None Seen HPF (0-3) 07/07/20 00:05 Urine Bacteria None Seen HPF (None Seen) 07/07/20 00:05 Sodium 132 mmol/L (136-145) L 07/10/20 04:31 Potassium 4.7 mmol/L (3.5-5.1) 07/10/20 04:31 Chloride 94 mmol/L (98-107) L 07/10/20 04:31 Carbon Dioxide 25 mmol/L (22-29) 07/10/20 04:31 Anion Gap 18 mmol/L (10-20) 07/10/20 04:31 BUN 81 mg/dL (8.4-25.7) H 07/10/20 04:31 Creatinine 5.38 mg/dL (0.7-1.3) H 07/10/20 04:31 Glucose 118 mg/dL (70-105) H 07/10/20 04:31 Calcium 7.7 mg/dL (7.8-10.44) L 07/10/20 04:31 Phosphorus 6.8 mg/dL (2.3-4.7) H 07/10/20 04:31 Magnesium 2.2 mg/dL (1.6-2.6) 06/29/20 04:38 Albumin 2.8 g/dL (3.5-5.0) L 07/10/20 04:31 Nephrology AP PN - Plan Acute renal failure: Most likely due to hemodynamic factors related to severe dehydration and acute infection. Initiated on HD 06/30/2020 due to worsening azotemia with Uremic encephalopathy. Last HD on 07/09/20. Edema: Fluid overload and hypoalbuminemia. improved with UF and diuretic Uremic encephalopathy. Improved. Metabolic acidosis. Resolved. Hyperkalemia: Resolved Severe dehydration: Resolved. Shock: due to hypovolemia and acute infection due to COVID. Resolved. Catheter tip postive culture: Infection vs colonization. Intermittent fever resolved after removal of catheter. Culture grew coag neg stapg x2 and fely Abnormal LFT: Due to dehydration and covid infection Hyponatremia: Due to severe volume depletion with appropriate ADH secretion. Improving COVID infection. HTN. Control is better Autism with decreased cognitive ability Vitamin D deficiency PLAN Continue amlodipine 5 mg daily HD TTS. Continue Vitamin D supplementation at discharge Continue diuretic therapy. Monitor I/O and renal function for renal recovery. Can be discharged once outpatient dialysis placement is concluded
[2020-07-10] MEDS: HumaLOG 300 UNITS/3 ML VIAL SC PRN ×2 (12:02→16:19)
--- NOTE | 2020-07-10 13:06 | PDOC.HOSPP ---
- Subjective Encounter Date: 07/10/20 Encounter Time: 09:45 Subjective: Patient seen and examined bedside today, patient has no new complaint, he is on room air, - Objective Vital Signs & Weight: Vital Signs (12 hours) Temp Pulse Resp BP Pulse Ox 07/10/20 12:00 98.1 F 95 20 142/83 H 98 07/10/20 08:00 98.7 F 82 17 145/82 H 97 07/10/20 04:20 97.6 F 87 18 136/85 94 L Weight Admit Weight 216 lb Weight 245 lb 9.519 oz I&O: 07/09/20 07/10/20 07/11/20 06:59 06:59 06:59 Intake Total 800 240 550 Output Total 2850 1500 Balance -2050 -1260 550 Result Diagrams: 07/08/20 06:40 07/10/20 04:31 Additional Labs: Accuchecks 07/10/20 07/10/20 07/09/20 10:52 04:29 20:38 POC Glucose 153 H 129 H 115 H 07/09/20 07/08/20 17:49 16:18 POC Glucose 110 H 144 H EKG Reviewed by me: Yes Hospitalist ROS - Review of Systems ENT: denies: ear pain, ear discharge, nose pain, nose discharge, nose congestion, mouth pain, mouth swelling, throat pain, throat swelling, other Respiratory: denies: cough, dry, shortness of breath, hemoptysis, SOB with excertion, pleuritic pain, sputum, wheezing, other Cardiovascular: denies: chest pain, palpitations, orthopnea, paroxysmal noc. dyspnea, edema, light headedness, other Gastrointestinal: denies: nausea, vomiting, abdominal pain, diarrhea, constipation, melena, hematochezia, other Genitourinary: denies: dysuria, frequency, incontinence, hematuria, retention, other Musculoskeletal: denies: neck pain, shoulder pain, arm pain, back pain, hand pain, leg pain, foot pain, other - Medication Medications: Active Medications Generic Name Dose Route Start Last Admin Trade Name Freq PRN Reason Stop Dose Admin Albuterol Sulfate 2 puff 06/27/20 23:06 07/04/20 16:59 Albuterol 200 Puff (6.7gm Inhaler) INH 2 puff [id number] PRN Administration Wheezing Amlodipine Besylate 5 mg 07/09/20 21:00 07/09/20 20:35 Amlodipine 5 Mg Tab PO 5 mg HS WILLIAMS Administration Ascorbic Acid 1,000 mg 06/28/20 09:00 07/10/20 09:41 Ascorbic Acid 500 Mg Chewable Tablet PO 1,000 mg DAILY WILLIAMS Administration Calcium Carbonate 1,000 mg 07/08/20 09:00 07/10/20 09:41 Calcium Carbonate 500 Mg Chewtab PO 1,000 mg TID WILLIAMS Administration Dexamethasone 6 mg 06/30/20 09:00 07/10/20 09:41 Dexamethasone 4 Mg/Ml Vial SLOW IVP 6 mg DAILY WILLIAMS Administration Ergocalciferol 1.25 mg 07/08/20 09:00 07/08/20 08:59 Ergocalciferol 1.25 Mg(50,000 Units) Cap PO 1.25 mg Q7DAYS WILLIAMS Administration Folic Acid 1 mg 06/28/20 09:00 07/10/20 09:42 Folic Acid 1 Mg Tab PO 1 mg DAILY WILLIAMS Administration Heparin Sodium (Porcine) 500 units 07/05/20 10:03 07/10/20 09:48 Heparin 500 Units/5 Ml Flush Syringe IV 500 unit PRN PRN Administration Heparin Flush Heparin Sodium (Porcine) 5,000 units 07/05/20 21:00 07/10/20 09:42 Heparin 5,000 Units/Ml Vial SC 5,000 units BID WILLIAMS Administration Hydralazine HCl 10 mg 07/08/20 08:02 07/09/20 18:48 Hydralazine 20 Mg/Ml Vial SLOW IVP 10 mg Q6H PRN Administration Hypertension Insulin Human Lispro 0 units 06/27/20 18:39 07/10/20 12:02 Humalog 300 Units/3 Ml Vial SC 2 unit .MILD SLIDING SCALE PRN Administration Mild Correctional Scale Insulin Human Lispro 0 units 06/27/20 18:39 07/06/20 21:09 Humalog 300 Units/3 Ml Vial SC 3 unit .BEDTIME SLIDING SC PRN Administration Bedtime Correctional Scale Iron/Minerals/Multivitamins 1 tab 06/28/20 09:00 07/10/20 09:44 Multivitamin W/ Minerals 1 Tab PO 1 tab DAILY WILLIAMS Administration Magnesium Oxide 400 mg 06/28/20 09:00 07/10/20 09:44 Magnesium Oxide 400 Mg Tab PO 400 mg DAILY WILLIAMS Administration Pantoprazole Sodium 40 mg 07/08/20 09:00 07/10/20 09:44 Pantoprazole 40 Mg Tab PO 40 mg DAILY WILLIAMS Administration Sodium Chloride 10 ml 06/27/20 16:43 07/04/20 08:24 Flush - Normal Saline 10 Ml Syringe IVF 10 ml PRN PRN Administration Saline Flush Thiamine HCl 100 mg 06/28/20 09:00 07/10/20 09:44 Thiamine 100 Mg Tab PO 100 mg DAILY WILLIAMS Administration Throat Lozenges 1 ayan 07/10/20 08:42 07/10/20 12:18 Cepastat Lozenges 1 Ayan PO 1 ayan Q2H PRN Administration Sore Throat Torsemide 100 mg 07/08/20 09:00 07/10/20 09:48 Torsemide 100 Mg Tab PO 100 mg DAILY WILLIAMS Administration Zinc Sulfate 220 mg 06/28/20 09:00 07/10/20 09:45 Zinc Sulfate 220 Mg Cap PO 220 mg DAILY WILLIAMS Administration Hospitalist Exam Vitals: Vital Signs (12 hours) Temp Pulse Resp BP Pulse Ox 07/10/20 12:00 98.1 F 95 20 142/83 H 98 07/10/20 08:00 98.7 F 82 17 145/82 H 97 07/10/20 04:20 97.6 F 87 18 136/85 94 L Weight Admit Weight 216 lb Weight 245 lb 9.519 oz General Appearance: NAD, awake alert Eye: PERRL, anicteric sclera ENT: normocephalic atraumatic, no oropharyngeal lesions Neck: supple, symmetric, no JVD, no thyromegaly Heart: RRR, no murmur, no gallops, no rubs Respiratory: CTAB, no wheezes, no rales Gastrointestinal: soft, non-tender, non-distended, normal bowel sounds Extremities: no cyanosis, no clubbing, no edema Skin: normal turgor, no lesions Neurological: no focal deficits Musculoskeletal: normal tone, normal strength Psychiatric: normal affect, normal behavior Hosp A/P (1) KASSIE (acute kidney injury) Code(s): N17.9 - ACUTE KIDNEY FAILURE, UNSPECIFIED Status: Acute (2) Abnormal LFTs Code(s): R94.5 - ABNORMAL RESULTS OF LIVER FUNCTION STUDIES Status: Acute (3) Acute respiratory failure with hypoxia Code(s): J96.01 - ACUTE RESPIRATORY FAILURE WITH HYPOXIA Status: Acute (4) Hyponatremia Code(s): E87.1 - HYPO-OSMOLALITY AND HYPONATREMIA Status: Acute (5) Metabolic acidosis Code(s): E87.2 - ACIDOSIS Status: Acute (6) Obesity (BMI 30-39.9) Code(s): E66.9 - OBESITY, UNSPECIFIED Status: Acute (7) Pneumonia due to COVID-19 virus Code(s): U07.1 - COVID-19; J12.82 - PNEUMONIA DUE TO CORONAVIRUS DISEASE 2019 Status: Acute (8) Diabetes mellitus type 2 in obese Code(s): E11.69 - TYPE 2 DIABETES MELLITUS WITH OTHER SPECIFIED COMPLICATION; E66.9 - OBESITY, UNSPECIFIED Status: Chronic (9) Hypertension Code(s): I10 - ESSENTIAL (PRIMARY) HYPERTENSION Status: Chronic - Plan old records reviewed/req, 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
[2020-07-10] MEDS: Amlodipine 5 MG TAB PO SCH (23:00)
[2020-07-11] MEDS ORDERED: Amlodipine 5 MG TAB PO SCH (09:00)
[2020-07-11] MEDS ORDERED: Heparin 10,000 UNITS/ 10 ML VIAL ONE (12:00)
--- NOTE | 2020-07-11 12:27 | PDOC.DS.DS ---
Provider Date of Admission: 06/27/20 16:18 Date of Discharge: 07/11/20 Admitting Provider: Jarocho Rios MD Consultations: General Surgery, Infectious Disease, Nephrology Primary Care Physician: Unknown Course Hospital Course: Mr. Kemp is a 59-year-old male with past medical history of type 2 diabetes mellitus, hypertension, autism who presents to the emergency room for weakness. Patient was brought in by his brother who noted that over the past few days his brother has been tired and lethargic which is very abnormal for him. EMS reported shortness of breath, however patient denies this. Patient denies fever, chills. Denies shortness of breath, chest pain, abdominal pain. Reports that he was feeling weak and tired the past few days, but feels better now. Also reports that his legs felt weak and that he was unable to get up out of bed. In emergency room initial vital signs 90/66, 83, 23, 92% on room air. EKG showed normal sinus rhythm with no ischemic changes. Initial troponin 0 0.026, BNP less than 10. Lactic acid 3.6, WBC 12.1. H/H 17.0/41.6, platelets 393. BUNs/CR 11.2/9.47, sodium 129, potassium 5.5, bicarb 18. Anion gap 29. Patient has no history of known kidney disease. He reports he has been urinating normally, although brother at bedside questions patient's reliability on review of systems. Patient was admitted on June 27, 2020, on admission patient had CT abdomen and pelvis which showed bilateral patchy groundglass infiltrate consistent with Covid pneumonia, no acute intra-abdominal process, chest x-ray also showed bilateral Covid pneumonia, patient had acute kidney injury so renal ultrasound was done which showed unremarkable finding, patient also had abdominal ultrasound which was also unremarkable, After admission patient was given convalescent plasma, he was given steroid, vitamin supplementation. 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 Patient seen and examined bedside today, Resuscitation Status: 06/27/20 16:43 Resuscitation Status Routine Co-Sign Provider: Resuscitation Status: FULL: Full Resuscitation Lab Results: 07/08/20 06:40 07/10/20 04:31 Abnormal Lab Results - Last 48 hrs 07/10/20 04:31: Sodium 132 L, Chloride 94 L, BUN 81 H, Creatinine 5.38 H, Calcium 7.7 L, Phosphorus 6.8 H, Albumin 2.8 L Microbiology - Entire Visit 07/02/20 05:54 Venous blood - Right Hand Blood Culture - Final NO GROWTH IN 5 DAYS 07/03/20 17:15 Catheter Tip Catheter Tip Culture - Final Presumptive Aileen albicans Coagulase Neg Staphylococcus Coagulase Neg Staphylococcus#2 06/27/20 14:21 Venous blood - Right Hand Blood Culture - Final NO GROWTH IN 5 DAYS 06/27/20 14:28 Venous blood - Left Hand Blood Culture - Final NO GROWTH IN 5 DAYS 06/27/20 18:15 Urine voided Urine Culture - Final NO GROWTH AT 36 HOURS Vitals: Vital Signs (12 hours) Temp Pulse Resp BP Pulse Ox 07/11/20 07:24 96.8 F L 88 20 145/86 H 95 07/11/20 04:30 97.8 F 85 14 157/86 H 100 Weight Admit Weight 216 lb Weight 245 lb 2.464 oz Physical Exam: The patient was seen and examined on the day of discharge. General Appearance: NAD, awake alert Eye: PERRL, anicteric sclera ENT: normocephalic atraumatic, no oropharyngeal lesions Neck: supple, symmetric, no JVD, no thyromegaly Respiratory: CTAB, no wheezes, no rales, no ronchi Respiratory - other findings: Tunneled hemodialysis catheter in place Cardiovascular: RRR, no murmur, no gallops, no rubs Gastrointestinal: soft, non-tender, non-distended, normal bowel sounds Extremities: no cyanosis, no clubbing, no edema Skin: normal turgor, no lesions Neurological: no focal deficits Musculoskeletal: normal tone, normal strength, no muscle wasting PSYCH: normal affect, normal behavior, A&O x 3 Problem (1) KASSIE (acute kidney injury) Code(s): N17.9 - ACUTE KIDNEY FAILURE, UNSPECIFIED Status: Acute Plan: Acute kidney injury likely due to COVID-19 and now converted to ESRD on hemodialysis (2) Abnormal LFTs Code(s): R94.5 - ABNORMAL RESULTS OF LIVER FUNCTION STUDIES Status: Acute (3) Acute respiratory failure with hypoxia Code(s): J96.01 - ACUTE RESPIRATORY FAILURE WITH HYPOXIA Status: Resolved (4) Hyponatremia Code(s): E87.1 - HYPO-OSMOLALITY AND HYPONATREMIA Status: Acute (5) Metabolic acidosis Code(s): E87.2 - ACIDOSIS Status: Acute (6) Pneumonia due to COVID-19 virus Code(s): U07.1 - COVID-19; J12.82 - PNEUMONIA DUE TO CORONAVIRUS DISEASE 2018 Status: Acute (7) Diabetes mellitus type 2 in obese Code(s): E11.69 - TYPE 2 DIABETES MELLITUS WITH OTHER SPECIFIED COMPLICATION; E66.9 - OBESITY, UNSPECIFIED Status: Chronic (8) Hypertension Code(s): I10 - ESSENTIAL (PRIMARY) HYPERTENSION Status: Chronic (9) Obesity (BMI 30-39.9) Code(s): E66.9 - OBESITY, UNSPECIFIED Status: Chronic Plan Prescriptions: Ergocalciferol [Drisdol] 1.25 mg PO Q7DAYS #7 cap Folic Acid [Folvite] 1 mg PO DAILY #30 tab Magnesium Oxide 400 mg PO DAILY #30 tab Amlodipine [Norvasc] 5 mg PO HS #30 tab Pantoprazole [Protonix] 40 mg PO DAILY #30 tab Benzonatate [Tessalon] 100 mg PO Q6H PRN #30 cap PRN Reason: Cough Multivitamin W/ Minerals [Theragran M] 1 tab PO DAILY #30 tab Thiamine 100 mg PO DAILY #30 tab Calcium Carbonate [Tums] 1,000 mg PO TID #30 tab Ascorbic Acid [Vitamin C] 1,000 mg PO DAILY #30 tab Zinc Sulfate 220 mg PO DAILY #14 cap Home Medications: Medication Instructions Recorded Confirmed Type Rosuvastatin Calcium 40 mg PO DAILY 06/29/20 06/29/20 History Amlodipine [Norvasc] 5 mg PO HS #30 tab 07/10/20 Rx Ascorbic Acid [Vitamin C] 1,000 mg PO DAILY #30 tab 07/10/20 Rx Benzonatate [Tessalon] 100 mg PO Q6H PRN #30 cap 07/10/20 Rx Calcium Carbonate [Tums] 1,000 mg PO TID #30 tab 07/10/20 Rx Ergocalciferol [Drisdol] 1.25 mg PO Q7DAYS #7 cap 07/10/20 Rx Folic Acid [Folvite] 1 mg PO DAILY #30 tab 07/10/20 Rx Magnesium Oxide 400 mg PO DAILY #30 tab 07/10/20 Rx Multivitamin W/ Minerals 1 tab PO DAILY #30 tab 07/10/20 Rx [Theragran M] Pantoprazole [Protonix] 40 mg PO DAILY #30 tab 07/10/20 Rx Thiamine 100 mg PO DAILY #30 tab 07/10/20 Rx Zinc Sulfate 220 mg PO DAILY #14 cap 07/10/20 Rx Allergies: No Known Allergies Allergy (Unverified 06/27/20 15:09) Activity:: Activity as Tolerated Nourishment:: Renal Diet Therapies:: Not Applicable Equipment/Supplies:: Not Applicable IV Therapy:: Not Applicable Referrals: [facility] [Outside] Unknown,Unknown [Primary Care Provider] - Disposition: HOME Quality CORE MEASURES:: N/A
--- NOTE | 2020-07-11 13:17 | PDOC.NEPPN ---
- Subjective Encounter Date: 07/11/20 Subjective: Seen during HD. No new problem. - Objective Vital Signs & Weight: Vital Signs (12 hours) Temp Pulse Resp BP Pulse Ox 07/11/20 07:24 96.8 F L 88 20 145/86 H 95 07/11/20 04:30 97.8 F 85 14 157/86 H 100 Weight Admit Weight 216 lb Weight 245 lb 2.464 oz I&O: 07/10/20 07/11/20 07/12/20 06:59 06:59 06:59 Intake Total 240 1300 Output Total 1500 625 Balance -1260 675 Result Diagrams: 07/08/20 06:40 07/10/20 04:31 Additional Labs: Accuchecks 07/11/20 07/10/20 07/10/20 06:01 20:59 16:07 POC Glucose 118 H 172 H 209 H Nephrology ROS - Medication Medications: Active Medications Generic Name Dose Route Start Last Admin Trade Name Freq PRN Reason Stop Dose Admin Albuterol Sulfate 2 puff 06/27/20 23:06 07/04/20 16:59 Albuterol 200 Puff (6.7gm Inhaler) INH 2 puff [id number] PRN Administration Wheezing Ascorbic Acid 1,000 mg 06/28/20 09:00 07/10/20 09:41 Ascorbic Acid 500 Mg Chewable Tablet PO 1,000 mg DAILY WILLIAMS Administration Calcium Carbonate 1,000 mg 07/08/20 09:00 07/10/20 23:00 Calcium Carbonate 500 Mg Chewtab PO 1,000 mg TID WILLIAMS Administration Dexamethasone 6 mg 06/30/20 09:00 07/10/20 09:41 Dexamethasone 4 Mg/Ml Vial SLOW IVP 6 mg DAILY WILLIAMS Administration Ergocalciferol 1.25 mg 07/08/20 09:00 07/08/20 08:59 Ergocalciferol 1.25 Mg(50,000 Units) Cap PO 1.25 mg Q7DAYS WILLIAMS Administration Folic Acid 1 mg 06/28/20 09:00 07/10/20 09:42 Folic Acid 1 Mg Tab PO 1 mg DAILY WILLIAMS Administration Heparin Sodium (Porcine) 500 units 07/05/20 10:03 07/10/20 23:03 Heparin 500 Units/5 Ml Flush Syringe IV 500 unit PRN PRN Administration Heparin Flush Heparin Sodium (Porcine) 5,000 units 07/05/20 21:00 07/10/20 23:05 Heparin 5,000 Units/Ml Vial SC 5,000 units BID WILLIAMS Administration Hydralazine HCl 10 mg 07/08/20 08:02 07/09/20 18:48 Hydralazine 20 Mg/Ml Vial SLOW IVP 10 mg Q6H PRN Administration Hypertension Insulin Human Lispro 0 units 06/27/20 18:39 07/10/20 16:19 Humalog 300 Units/3 Ml Vial SC 3 unit .MILD SLIDING SCALE PRN Administration Mild Correctional Scale Insulin Human Lispro 0 units 06/27/20 18:39 07/06/20 21:09 Humalog 300 Units/3 Ml Vial SC 3 unit .BEDTIME SLIDING SC PRN Administration Bedtime Correctional Scale Iron/Minerals/Multivitamins 1 tab 06/28/20 09:00 07/10/20 09:44 Multivitamin W/ Minerals 1 Tab PO 1 tab DAILY WILLIAMS Administration Magnesium Oxide 400 mg 06/28/20 09:00 07/10/20 09:44 Magnesium Oxide 400 Mg Tab PO 400 mg DAILY WILLIAMS Administration Pantoprazole Sodium 40 mg 07/08/20 09:00 07/10/20 09:44 Pantoprazole 40 Mg Tab PO 40 mg DAILY WILLIAMS Administration Sodium Chloride 10 ml 06/27/20 16:43 07/04/20 08:24 Flush - Normal Saline 10 Ml Syringe IVF 10 ml PRN PRN Administration Saline Flush Thiamine HCl 100 mg 06/28/20 09:00 07/10/20 09:44 Thiamine 100 Mg Tab PO 100 mg DAILY WILLIAMS Administration Throat Lozenges 1 ayan 07/10/20 08:42 07/10/20 12:18 Cepastat Lozenges 1 Ayan PO 1 ayan Q2H PRN Administration Sore Throat Torsemide 100 mg 07/08/20 09:00 07/10/20 09:48 Torsemide 100 Mg Tab PO 100 mg DAILY WILLIAMS Administration Zinc Sulfate 220 mg 06/28/20 09:00 07/10/20 09:45 Zinc Sulfate 220 Mg Cap PO 220 mg DAILY WILLIAMS Administration - Exam General Appearance: awake alert Eye: anicteric sclera ENT: normocephalic atraumatic, moist mucosa Neck: supple, symmetric, no JVD Respiratory: no wheezes Cardiovascular: RRR Gastrointestinal: soft, non-tender, non-distended Extremities: no edema Neurological: CN's grossly intact, no focal deficits Neurological - other findings: decreased cognition PSYCH: oriented to person, oriented to place Nephrology Results - Labs Result Diagrams: 07/08/20 06:40 07/10/20 04:31 Lab results: WBC 13.1 thou/uL (4.8-10.8) H 07/08/20 06:40 Hgb 11.4 g/dL (14.0-18.0) L 07/08/20 06:40 Hct 35.1 % (42.0-52.0) L 07/08/20 06:40 MCV 86.7 fL (78.0-98.0) 07/08/20 06:40 Plt Count 194 thou/uL (130-400) 07/08/20 06:40 Neutrophils % 90.6 % (42.0-75.0) H 07/02/20 04:47 Band Neuts % (Manual) 2 % (5-11) L 07/08/20 06:40 Sodium 132 mmol/L (136-145) L 07/10/20 04:31 Potassium 4.7 mmol/L (3.5-5.1) 07/10/20 04:31 Chloride 94 mmol/L (98-107) L 07/10/20 04:31 Carbon Dioxide 25 mmol/L (22-29) 07/10/20 04:31 BUN 81 mg/dL (8.4-25.7) H 07/10/20 04:31 Creatinine 5.38 mg/dL (0.7-1.3) H 07/10/20 04:31 Glucose 118 mg/dL (70-105) H 07/10/20 04:31 Lactic Acid 2.4 mmol/L (0.5-2.2) H 06/28/20 04:29 Calcium 7.7 mg/dL (7.8-10.44) L 07/10/20 04:31 Total Bilirubin 0.6 mg/dL (0.2-1.2) 07/01/20 05:50 AST 301 U/L (5-34) H 07/01/20 05:50 ALT 277 U/L (8-55) H 07/01/20 05:50 Alkaline Phosphatase 156 U/L (40-110) H 07/01/20 05:50 Ammonia 85 umol/L (18-72) H 06/27/20 17:15 Creatine Kinase 284 U/L (30-200) H 06/27/20 13:56 Troponin I 0.026 ng/mL (< 0.028) 06/27/20 13:56 C-Reactive Protein 6.16 mg/dL (= or < 0.5) H 07/08/20 06:41 B-Natriuretic Peptide Less than 10.0 pg/mL (0-100) 06/27/20 13:56 Serum Total Protein 6.5 g/dL (6.0-8.3) 07/01/20 05:50 Albumin 2.8 g/dL (3.5-5.0) L 07/10/20 04:31 Lipase 242 U/L (8-78) H 06/27/20 17:15 Urine Ketones Negative mg/dL (Negative) 07/07/20 00:05 Urine Blood 3+ (Negative) A 07/07/20 00:05 Urine Nitrite Negative (Negative) 07/07/20 00:05 Ur Leukocyte Esterase Negative Nadia/uL (Negative) 07/07/20 00:05 Urine RBC 0-3 HPF (0-3) 07/07/20 00:05 Urine WBC 0-3 HPF (0-3) 07/07/20 00:05 Ur Squamous Epith Cells None Seen HPF (0-3) 07/07/20 00:05 Urine Bacteria None Seen HPF (None Seen) 07/07/20 00:05 Sodium 132 mmol/L (136-145) L 07/10/20 04:31 Potassium 4.7 mmol/L (3.5-5.1) 07/10/20 04:31 Chloride 94 mmol/L (98-107) L 07/10/20 04:31 Carbon Dioxide 25 mmol/L (22-29) 07/10/20 04:31 Anion Gap 18 mmol/L (10-20) 07/10/20 04:31 BUN 81 mg/dL (8.4-25.7) H 07/10/20 04:31 Creatinine 5.38 mg/dL (0.7-1.3) H 07/10/20 04:31 Glucose 118 mg/dL (70-105) H 07/10/20 04:31 Calcium 7.7 mg/dL (7.8-10.44) L 07/10/20 04:31 Phosphorus 6.8 mg/dL (2.3-4.7) H 07/10/20 04:31 Magnesium 2.2 mg/dL (1.6-2.6) 06/29/20 04:38 Albumin 2.8 g/dL (3.5-5.0) L 07/10/20 04:31 Nephrology AP PN - Plan Acute renal failure: Most likely due to hemodynamic factors related to severe dehydration and acute infection. Initiated on HD 06/30/2020 due to worsening azotemia with Uremic encephalopathy. Last HD on 07/09/20. Edema: Fluid overload and hypoalbuminemia. improved with UF and diuretic Uremic encephalopathy. Improved. Metabolic acidosis. Resolved. Hyperkalemia: Resolved Severe dehydration: Resolved. Shock: due to hypovolemia and acute infection due to COVID. Resolved. Catheter tip postive culture: Infection vs colonization. Intermittent fever resolved after removal of catheter. Culture grew coag neg stapg x2 and fely Abnormal LFT: Due to dehydration and covid infection Hyponatremia: Due to severe volume depletion with appropriate ADH secretion. Improving COVID infection. HTN. Control is better Autism with decreased cognitive ability Vitamin D deficiency PLAN Add meto;prolol succinate to amlodipine 5 mg daily Contyinue HD TTS. Dc torsemide given improved volume status Continue Vitamin D supplementation at discharge Continue diuretic therapy. Monitor I/O and renal function for renal recovery. Can be discharged once outpatient dialysis placement is concluded
[2020-07-11] MEDS: Ascorbic Acid 500 mg Chewable Tablet PO SCH (14:23)
[2020-07-11] MEDS: Calcium Carbonate 500 MG ChewTAB PO SCH (14:23)
[2020-07-11] MEDS: Heparin 5,000 UNITS/ML VIAL SC SCH (14:24)
[2020-07-11] MEDS: Folic Acid 1 MG TAB PO SCH (14:24)
[2020-07-11] MEDS: Dexamethasone 4 mg/ml Vial SLOW IVP SCH (14:24)
[2020-07-11] MEDS: Magnesium Oxide 400 MG TAB PO SCH (14:24)
[2020-07-11] MEDS: Thiamine 100 MG TAB PO SCH (14:25)
[2020-07-11] MEDS: Multivitamin W/ Minerals 1 TAB PO SCH (14:25)
[2020-07-11] MEDS: Zinc Sulfate 220 MG CAP PO SCH (14:25)
[2020-07-11] MEDS: Torsemide 100 MG TAB PO SCH (14:25)
[2020-07-11 16:26] VITALS: BP 139/84; TEMP 97.5
== END 2020-07-11 16:18 | disposition home or self-care (01) | DRG 871 ==
LOC: ERS 13:24 → 2NO 16:18 → 2SW 23:56
PROVIDERS: ADMIT Internal Medicine; ATTEND Internal Medicine
PROC: 8E0ZXY6 Isolation (ICD-10-PCS; 2020-06-27)
PROC: XW13325 Transfusion of Convalescent Plasma (Nonautologous) into Peripheral Vein, Percutaneous Approach, New Technology Group 5 (ICD-10-PCS; 2020-06-27)
PROC: 06HY33Z Insertion of Infusion Device into Lower Vein, Percutaneous Approach (ICD-10-PCS; 2020-06-30)
PROC: 5A1D70Z Performance of Urinary Filtration, Intermittent, Less than 6 Hours Per Day (ICD-10-PCS; 2020-06-30)
PROC: 06HY33Z Insertion of Infusion Device into Lower Vein, Percutaneous Approach (ICD-10-PCS; 2020-07-01)
PROC: 0JH63XZ Insertion of Tunneled Vascular Access Device into Chest Subcutaneous Tissue and Fascia, Percutaneous Approach (ICD-10-PCS; principal; 2020-07-09)
PROC: 02HV33Z Insertion of Infusion Device into Superior Vena Cava, Percutaneous Approach (ICD-10-PCS; 2020-07-09)
PROC: B5181ZA Fluoroscopy of Superior Vena Cava using Low Osmolar Contrast, Guidance (ICD-10-PCS; 2020-07-09)
PROC: B548ZZA Ultrasonography of Superior Vena Cava, Guidance (ICD-10-PCS; 2020-07-09)
DX: A41.9 Sepsis, unspecified organism (principal); U07.1 COVID-19; J12.82 Pneumonia due to coronavirus disease 2019; J96.01 Acute respiratory failure with hypoxia; R57.1 Hypovolemic shock; N18.6 End stage renal disease; F84.0 Autistic disorder; N17.9 Acute kidney failure, unspecified; E87.2 Acidosis; E87.1 Hypo-osmolality and hyponatremia; G93.49 Other encephalopathy; T82.49XA Other complication of vascular dialysis catheter, initial encounter; T82.7XXA Infection and inflammatory reaction due to other cardiac and vascular devices, implants and grafts, initial encounter; I12.0 Hypertensive chronic kidney disease with stage 5 chronic kidney disease or end stage renal disease; B37.89 Other sites of candidiasis; B95.7 Other staphylococcus as the cause of diseases classified elsewhere; E66.9 Obesity, unspecified; E86.0 Dehydration; R74.01 Elevation of levels of liver transaminase levels; M10.9 Gout, unspecified; E87.5 Hyperkalemia; E11.22 Type 2 diabetes mellitus with diabetic chronic kidney disease; E55.9 Vitamin D deficiency, unspecified; Y83.8 Other surgical procedures as the cause of abnormal reaction of the patient, or of later complication, without mention of misadventure at the time of the procedure; Z79.84 Long term (current) use of oral hypoglycemic drugs; Z72.89 Other problems related to lifestyle; Z68.37 Body mass index [BMI] 37.0-37.9, adult
CPT/HCPCS: 36415; 36416; 71045; 74176; 76705; 76770; 80048; 80053; 80069; 80074; 80076; 80202; 80306; 80307; 81001; 81003; 81015; 82140; 82306; 82550; 82570; 82607; 82693; 82746; 83605; 83615; 83690; 83735; 83880; 83930; 83935; 84100; 84145; 84146; 84156; 84295; 84300; 84443; 84484; 84540; 85025; 85610; 85730; 86038; 86140; 86225; 86704; 86706; 86803; 87040; 87071; 87086; 87340; 87389; 87899; 90935; 93005; 96365; 96366; 96367; 96368; C1752; G0257; J0360; J0456; J0690; J0692; J0696; J1100; J1642; J1644; J1815; J2405; J2704; J3370; J3411; J3475; J3490; J7070; P9047; S0020; U0002